=== PATIENT | female | born 1935 | race Caucasian/White ===

== ENCOUNTER 2017-02-21 11:55 | Observation (INO) | payer MEDICARE, OTHER ==
[2017-02-21 12:31] LABS: Urine Bilirubin Negative (NEGATIVE); Urine Blood Negative /ul (NEGATIVE); Urine Ketone Negative (NEGATIVE); Urine Nitrite Negative (NEGATIVE); Urine Protein Negative (NEGATIVE); Urine Urobilinogen Normal (NORMAL)
[2017-02-21 12:36] LABS: Hematocrit 35.7 % (37.0-47.0); Hemoglobin 11.7 gm/dL (12.5-16.0); Mean Corpuscular Hemoglobin 29.2 pg (27-31); Mean Corpuscular Hgb Conc 32.8 g/dl (32-36); Mean Platelet Volume 9.4 fl (6.0-9.5); Neutrophil # 5.5 K/mm3 (1.3-6.0); Neutrophil % 73.4 % (42-75.0); Platelet Count 192 K/mm3 (150-450); Red Blood Count 4.01 M/mm3 (4.2-5.4); Red Cell Distribution Width 13.9 % (11.5-14.0); White Blood Count 7.5 K/mm3 (4.0-10.5)
[2017-02-21 12:42] LABS: Cocaine Ur Negative (NEGATIVE); Urine Barbiturate Negative (NEGATIVE); Urine Benzodiazepines Negative (NEGATIVE); Urine Opiates Negative (NEGATIVE); Urine PCP Negative (NEGATIVE); Urine THC Negative (NEGATIVE)
[2017-02-21 12:45] LABS: Urine Appearance Slightly Cloudy; Urine Color Yellow
[2017-02-21 12:46] LABS: Urine Bacteria TRACE; Urine RBC None Seen /hpf (0-5); Urine WBC 0-5 /hpf (0-5)
[2017-02-21 12:58] LABS: ALT 30 U/L (19-67); AST 26 U/L (0-48); Alkaline Phosphatase * 88 U/L (50-170); Anion Gap 14.3 mmol/L (6.8-13.8); BUN/Creatinine Ratio 16.3 (9.0-21.6); Bilirubin, Total 0.3 mg/dL (0.0-1.1); Blood Urea Nitrogen 22 mg/dL (3-23); Ca. Corrected For Albumin 8.5 mg/dL (8.4-10.2); Calcium * 8.8 mg/dL (7.9-10.9); Carbon Dioxide 26.9 mmol/L (24-32.6); Chloride 99 mmol/L (97-106); Glucose * 183 mg/dL (70-110); Potassium 4.2 mmol/L (3.4-4.6); Salicylate Less than 2.8 mg/dL (2.8-20.0); Sodium 136 mmol/L (132-142); Total Protein 7.6 gm/dL (6.2-8.2)
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
[2017-02-21] MEDS ORDERED: FLU VACC QS2017-18(6MOS UP)/PF 60 MCG/0.5 ML SYRINGE IM ONE (22:11)
[2017-02-21] MEDS ORDERED: CYCLOBENZAPRINE HCL 10 MG TABLET PO PRN (23:38)
[2017-02-21] MEDS ORDERED: ALBUTEROL SULFATE 200 PUFF INHALER IH PRN (23:38)
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
[2017-02-21] MEDS ORDERED: oxyCODONE HCL/ACETAMINOPHEN 1 TAB TABLET ONE (23:53)
[2017-02-21] MEDS ORDERED: AMITRIPTYLINE HCL 25 MG TABLET ONE (23:53)
[2017-02-21] MEDS: AMITRIPTYLINE HCL 50 MG TABLET PO SCH (23:55)
[2017-02-21] MEDS: oxyCODONE HCL/ACETAMINOPHEN 1 TAB TABLET PO PRN (23:55)
[2017-02-22] MEDS ORDERED: ACETAMINOPHEN 500 MG TABLET PO PRN (00:03)
[2017-02-22] MEDS ORDERED: diphenhydrAMINE HCL 25 MG CAPSULE PO PRN (00:04)
[2017-02-22] MEDS ORDERED: ALBUTEROL SULFATE 2.5 MG/0.5 ML VIAL.NEB IH PRN (06:38)
[2017-02-22] MEDS: LEVOTHYROXINE SODIUM 50 MCG TABLET PO SCH (07:41)
[2017-02-22] MEDS: OMEGA-3 FATTY ACIDS 1 CAP CAPSULE PO SCH (08:46)
[2017-02-22] MEDS: LISINOPRIL 10 MG TABLET PO SCH (08:46)
[2017-02-22] MEDS: FLUTICASONE PROPIONATE 120 SPRAY INHALER NS SCH ×3 (08:47→20:33)
[2017-02-22] MEDS: BETA-CAROTENE(A) W-C , E/MIN 1 TAB TABLET PO SCH (08:47)
[2017-02-22] MEDS: FUROSEMIDE 20 MG TABLET PO SCH (08:47)
[2017-02-22] MEDS: ASPIRIN 81 MG TABLET.DR PO SCH (08:47)
[2017-02-22] MEDS: FAMOTIDINE 20 MG TABLET PO SCH ×2 (08:47→20:26)
[2017-02-22] MEDS: MULTIVITAMINS 1 CAP CAPSULE PO SCH (08:47)
[2017-02-22] MEDS ORDERED: ATORVASTATIN CALCIUM 40 MG TABLET PO SCH (09:00)
[2017-02-22] MEDS ORDERED: FLU VACC QS2017-18(6MOS UP)/PF 60 MCG/0.5 ML SYRINGE IM ONE (09:00)
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
[2017-02-22] MEDS ORDERED: ARIPiprazole 5 MG TABLET PO SCH (19:30)
[2017-02-22] MEDS: oxyCODONE HCL/ACETAMINOPHEN 1 TAB TABLET PO PRN (20:25)
[2017-02-22] MEDS: AMITRIPTYLINE HCL 50 MG TABLET PO SCH (20:26)
[2017-02-22] MEDS: ROSUVASTATIN CALCIUM 10 MG TABLET PO SCH (20:26)
[2017-02-22] MEDS: INSULIN GLARGINE,HUM.REC.ANLOG 100 UNITS/ML VIAL SC SCH (20:27)
--- NOTE | 2017-02-22 23:43 | PN ---
Subjective - Date and Time Seen Date: 02/22/17 Time: 16:42 Subjective Narrative: Shaina reports no concerns. Nursing reports continued paranoid delusions. Believes her neighbor is out to get her and she is scared to go home. No fever, chills, nausea, or vomiting. Objective - Vitals Vitals: Last Vital Signs Temp 36.8 C 02/22/17 21:00 Pulse 87 02/22/17 21:00 Resp 18 02/22/17 17:00 BP 99/57 02/22/17 21:00 Pulse Ox 90 02/22/17 17:00 - Exam Constitutional: Present: Alert, Oriented x3, Cooperative ENT Exam: Present: hearing grossly normal Respiratory: Present: lungs clear, normal breath sounds Cardiovascular/Chest: Present: regular rate, rhythm, no murmur Abdomen: Present: Normal bowel sounds, soft, nontender, nondistended Skin Exam: Present: normal color, warm/dry, no cyanosis Eye contact: Present: cooperative, good eye contact, normal speech Assessment/Plan Plan Narrative: Altered mental status with paranoid delusions. Consulted psychiatry. Will plan to get Brain MRI to evaluate for stroke. - Problems/Diagnosis (1) Altered mental status, unspecified Problem: Resolved Qualifiers: Altered mental status type: unspecified Qualified Code(s): R41.82 - Altered mental status, unspecified
[2017-02-23] MEDS: LEVOTHYROXINE SODIUM 50 MCG TABLET PO SCH (06:36)
[2017-02-23] MEDS: oxyCODONE HCL/ACETAMINOPHEN 1 TAB TABLET PO PRN ×2 (08:33→20:11)
[2017-02-23] MEDS: FAMOTIDINE 20 MG TABLET PO SCH ×2 (08:36→20:04)
[2017-02-23] MEDS: BETA-CAROTENE(A) W-C , E/MIN 1 TAB TABLET PO SCH (08:36)
[2017-02-23] MEDS: ARIPiprazole 10 MG TABLET PO SCH (08:36)
[2017-02-23] MEDS: FUROSEMIDE 20 MG TABLET PO SCH (08:36)
[2017-02-23] MEDS: OMEGA-3 FATTY ACIDS 1 CAP CAPSULE PO SCH (08:36)
[2017-02-23] MEDS: FLUTICASONE PROPIONATE 120 SPRAY INHALER NS SCH ×2 (08:36→20:03)
[2017-02-23] MEDS: MULTIVITAMINS 1 CAP CAPSULE PO SCH (08:36)
[2017-02-23] MEDS: LISINOPRIL 10 MG TABLET PO SCH (08:37)
[2017-02-23] MEDS: ASPIRIN 81 MG TABLET.DR PO SCH (08:44)
--- NOTE | 2017-02-23 14:24 | PN ---
Subjective - Date and Time Seen Date: 02/23/17 Time: 14:09 Subjective Narrative: Shaina seems to not have any problems with the Aripiprazole we started her on last night. I just read the results of the CT scan of the brain done at 7:33 AM today and read by Dr. 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 There is cortical and cerebellar atrophy; subcortical and periventricular white matter , mostly chronic microvascular ischemic changes of the brain.. There also are small peripheral encephalomalacic changes in the right cerebellar hemisphere in the inferior aspect. 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 4-A Scottish-cheese pattern of dementia characteristics as evidence by startlingly contradictory findings on the Miguel MMSE as shown by severely impaired Draw-A -Clock test results, spotty performances in memory, immediate and remote recall , calculation and concrete tests of abstract thinking, and episodes of rages . I discussed the above developments with Chacho Allen DO, her attending physician. Objective - Vitals Vitals: Last Vital Signs Temp 36.5 C 02/23/17 10:59 Pulse 82 02/23/17 13:46 Resp 18 02/23/17 13:46 BP 128/60 02/23/17 13:46 Pulse Ox 99 02/23/17 13:46
[2017-02-23] MEDS: CLOPIDOGREL BISULFATE 75 MG TABLET PO SCH (17:56)
[2017-02-23] MEDS: ROSUVASTATIN CALCIUM 10 MG TABLET PO SCH (20:03)
[2017-02-23] MEDS: AMITRIPTYLINE HCL 50 MG TABLET PO SCH (20:03)
[2017-02-23] MEDS: INSULIN GLARGINE,HUM.REC.ANLOG 100 UNITS/ML VIAL SC SCH (20:04)
--- NOTE | 2017-02-23 23:57 | PN ---
Subjective - Date and Time Seen Date: 02/23/17 Time: 16:50 Subjective Narrative: Have seen less paranoid delusions from Shaina today per nursing. MRI obtained shows old PICA stroke, this may be related but does not explain the recent change given that this is an old stroke. No fever, chills, n/v. Objective - Vitals Vitals: Last Vital Signs Temp 36.4 C L 02/23/17 19:00 Pulse 80 02/23/17 19:00 Resp 18 02/23/17 19:00 BP 141/42 02/23/17 19:00 Pulse Ox 98 02/23/17 19:00 - Exam Constitutional: Present: Alert, Oriented x3, Cooperative ENT Exam: Present: hearing grossly normal Respiratory: Present: lungs clear, normal breath sounds Cardiovascular/Chest: Present: regular rate, rhythm, no murmur Abdomen: Present: Normal bowel sounds, soft, nontender, nondistended Thoughts: Present: normal thought pattern, no apparent hallucination Assessment/Plan Plan Narrative: Behaviors improved some today. Brain MRI showed old PICA stroke. Will evaluate further with outpatient MRA and echo as she did not have a history of stroke. Psych believes symptoms may be mental health related to poor vision causing hallucinations. Started on Abilify. Will monitor overnight. - Problems/Diagnosis (1) Altered mental status, unspecified Problem: Resolved Qualifiers: Altered mental status type: unspecified Qualified Code(s): R41.82 - Altered mental status, unspecified (2) Ischemic stroke Problem: Chronic
[2017-02-24] MEDS: LEVOTHYROXINE SODIUM 50 MCG TABLET PO SCH (07:18)
[2017-02-24] MEDS: BETA-CAROTENE(A) W-C , E/MIN 1 TAB TABLET PO SCH (08:20)
[2017-02-24] MEDS: FAMOTIDINE 20 MG TABLET PO SCH (08:20)
[2017-02-24] MEDS: FLUTICASONE PROPIONATE 120 SPRAY INHALER NS SCH (08:20)
[2017-02-24] MEDS: FUROSEMIDE 20 MG TABLET PO SCH (08:20)
[2017-02-24] MEDS: MULTIVITAMINS 1 CAP CAPSULE PO SCH (08:20)
[2017-02-24] MEDS: ARIPiprazole 10 MG TABLET PO SCH (08:20)
[2017-02-24] MEDS: OMEGA-3 FATTY ACIDS 1 CAP CAPSULE PO SCH (08:20)
[2017-02-24] MEDS: LISINOPRIL 10 MG TABLET PO SCH (08:21)
[2017-02-24] MEDS: oxyCODONE HCL/ACETAMINOPHEN 1 TAB TABLET PO PRN (08:21)
[2017-02-24] MEDS: CLOPIDOGREL BISULFATE 75 MG TABLET PO SCH (08:21)
--- NOTE | 2017-02-24 11:02 | DS ---
(1) Delusion Problem: Resolved (2) Altered mental status, unspecified Problem: Resolved Qualifiers: Altered mental status type: unspecified Qualified Code(s): R41.82 - Altered mental status, unspecified (3) Ischemic stroke Problem: Chronic Description of Stay: Shaina is a 81 yo female admitted for altered mental status and paranoid delusions. Psychiatry was consulted. A brain MRI, labwork, and a borja for infectious etiology were performed. The only abnormality was evidence of an old stroke. Psych felt symptoms were related to vision change causing visual hallucinations. Recommended starting abilify. This did seem to help patient's delusions. No history of stroke, will therefore work up the chronic stroke for etiology as I am unsure when this occurred and if this is related to her symptoms. Procedures Performed: none Discharge Disposition: Home self care Disposition: Home self-care Condition: Good Discharge Activity: Activity as tolerated Discharge Diet: Consistent carbs Referrals: Chacho Allen DO [Primary Care Provider] - One Week Leandra Jacobs MD [Staff Physician] - (Hospital follow up next available) Problem Oriented Discharge Instructions to Patient/Family: Ischemic Stroke Treated Without Warfarin, [id number] Additional Patient Instructions (free text): Please make TCM appointment at discharge, if applicable. Thank you! Nilam @ [phone]. Follow up appointment with Dr. Allen on 03/03/17 at 10:00am Follow up appointment with Dr. Jacobs on 03/10/1710:30am [facility] Home Health- resume at discharge. Prescriptions (Any new or edited meds): ARIPiprazole [Abilify] 5 mg PO DAILY #30 tablet Clopidogrel Bisulfate [Plavix] 75 mg PO DAILY #30 tablet Complete Home Medications List: Complete Home Medication List: Aspirin [Aspirin Enteric Coated] 81 mg PO DAILY 08/07/13 Insulin Glargine,Hum.rec.anlog [Lantus] 20 unit SQ HS 08/22/13 Amitriptyline HCl [Elavil] 50 mg PO HS 02/14/14 Levothyroxine Sodium [Synthroid] 50 mcg PO DAILY 02/14/14 Albuterol Sulfate [Proair Hfa] 2 puff IH QID PRN 04/04/15 Atorvastatin Calcium [Lipitor] 20 mg PO DAILY 04/04/15 Fluticasone Propionate [Flonase] 1 spray NS BID 04/04/15 Furosemide [Lasix] 20 mg PO DAILY 04/04/15 Lisinopril [Zestril] 10 mg PO DAILY 04/04/15 Multivitamins [Multivitamin Charles] 1 cap PO DAILY 04/04/15 oxyCODONE HCL/ACETAMINOPHEN [Percocet 5 MG/325 MG] 1 - 2 tab PO BID PRN Ranitidine HCl [Zantac] 150 mg PO BID 01/22/16 Acetaminophen/Diphenhydramine [Tylenol Pm Ex-Strength Caplet] 1 each PO QID PRN 02/21/17 Cyclobenzaprine HCl [Flexeril] 10 mg PO TID PRN 02/21/17 [place]-3S/Dha/Epa/Fish Oil [Fish Oil 1,200 mg Softgel] 1 each PO DAILY 02/21/17 Vit C/E/Zn/Coppr/Lutein/Zeaxan [Preservision Areds 2 Softgel] 1 each PO BID 07/09 ARIPiprazole [Abilify] 5 mg PO DAILY #30 tablet 02/24/17 Clopidogrel Bisulfate [Plavix] 75 mg PO DAILY #30 tablet 02/24/17 Amb Orders for Discharge: MRA Head W/O Contrast * Time Frame: 1 Week, Facility: [facility], Location: Radiology MRA Neck W/WO * Time Frame: 1 Week, Facility: [facility], Location: Radiology US Echocardiogram Complete * Time Frame: 1 Week, Facility: [facility], Location: Radiology
[2017-02-24 13:39] VITALS: BP 144/66
== END 2017-02-24 13:56 | disposition home or self-care (01) ==
LOC: ER 11:55 → MS 21:16
PROVIDERS: ADMIT Nurse Practitioner; ATTEND Family Medicine
DX: R44.1 Visual hallucinations (principal); Z63.4 Disappearance and death of family member; F43.12 Post-traumatic stress disorder, chronic; Z86.73 Personal history of transient ischemic attack (TIA), and cerebral infarction without residual deficits; E10.9 Type 1 diabetes mellitus without complications; Z79.4 Long term (current) use of insulin; I10 Essential (primary) hypertension; I50.9 Heart failure, unspecified; J44.9 Chronic obstructive pulmonary disease, unspecified; Z87.891 Personal history of nicotine dependence; K21.9 Gastro-esophageal reflux disease without esophagitis; Z23 Encounter for immunization
CPT/HCPCS: 36415; 70553; 80053; 80307; 81001; 82947; 84443; 85025; 87086; 90686; 93005; 96372; 99285; G0008; G0378; G0480; G0481

== ENCOUNTER 2017-04-06 13:54 | Observation (INO) | payer MEDICARE, OTHER ==
[2017-04-06] MEDS ORDERED: NORMAL SALINE 1,000 ML IV ONE (14:04)
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
[2017-04-06 14:38] LABS: Hemoglobin 11.9 gm/dL (12.5-16.0); Mean Cell Volume 88.7 fl (78-100); Mean Corpuscular Hemoglobin 28.5 pg (27-31); Mean Corpuscular Hgb Conc 32.2 g/dl (32-36); Mean Platelet Volume 9.9 fl (6.0-9.5); Neutrophil # 7.9 K/mm3 (1.3-6.0); Platelet Count 264 K/mm3 (150-450); Red Blood Count 4.17 M/mm3 (4.2-5.4); Red Cell Distribution Width 14.3 % (11.5-14.0); White Blood Count 9.9 K/mm3 (4.0-10.5)
[2017-04-06] MEDS ORDERED: ONDANSETRON HCL/PF 2 MG/ML VIAL IV ONE (14:51)
[2017-04-06] MEDS ORDERED: ONDANSETRON HCL/PF 2 MG/ML VIAL ONE ×2 (14:51→14:53)
[2017-04-06 14:53] LABS: Troponin I Less than 0.017 ng/ml (0.00-0.10)
[2017-04-06 14:55] LABS: ALT 21 U/L (19-67); AST 25 U/L (0-48); Alkaline Phosphatase * 111 U/L (50-170); BNP * 778 pg/mL (5-550); BUN/Creatinine Ratio 14.1 (9.0-21.6); Bilirubin, Total 0.5 mg/dL (0.0-1.1); Blood Urea Nitrogen 22 mg/dL (3-23); CRP 1.9 mg/dL (0.0-0.9); Ca. Corrected For Albumin 9.3 mg/dL (8.4-10.2); Calcium * 9.6 mg/dL (7.9-10.9); Chloride 102 mmol/L (97-106); Glucose * 220 mg/dL (70-110); Potassium 3.4 mmol/L (3.4-4.6); Sodium 140 mmol/L (132-142); Total Protein 7.8 gm/dL (6.2-8.2)
[2017-04-06 15:04] LABS: Anion Gap 16.1 mmol/L (6.8-13.8); Carbon Dioxide 25.3 mmol/L (24-32.6)
[2017-04-06 15:35] LABS: Urine Bilirubin Negative (NEGATIVE); Urine Ketone Negative (NEGATIVE); Urine Nitrite Negative (NEGATIVE); Urine Protein >=300 mg/dL (NEGATIVE); Urine Specific Gravity 1.025 SP.GR. (1.005-1.010); Urine Urobilinogen Normal (NORMAL)
[2017-04-06 15:46] LABS: Urine Blood 5 /ul (NEGATIVE)
[2017-04-06 15:47] LABS: Urine Appearance Clear; Urine Bacteria 3+; Urine Color Dark Yellow
[2017-04-06] MEDS ORDERED: DICYCLOMINE HCL 10 MG/ML AMPUL IM ONE ×2 (16:12→16:22)
[2017-04-06] MEDS ORDERED: NITROFURANTOIN/NITROFURAN MAC 100 MG CAPSULE PO SCH (17:30)
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
[2017-04-06] MEDS ORDERED: ALBUTEROL SULFATE 200 PUFF INHALER IH PRN (20:28)
[2017-04-06] MEDS ORDERED: oxyCODONE HCL/ACETAMINOPHEN 1 TAB TABLET PO PRN (20:28)
[2017-04-06] MEDS ORDERED: FLUTICASONE PROPIONATE 120 SPRAY INHALER NS PRN (20:28)
[2017-04-06 20:39] LABS: Hemoglobin 11.8 gm/dL (12.5-16.0)
[2017-04-06] MEDS: INSULIN GLARGINE,HUM.REC.ANLOG 100 UNITS/ML VIAL SC SCH (21:11)
[2017-04-06] MEDS: CYCLOBENZAPRINE HCL 10 MG TABLET PO SCH (21:11)
[2017-04-06] MEDS: FAMOTIDINE 20 MG TABLET PO SCH (21:11)
[2017-04-06] MEDS: AMITRIPTYLINE HCL 50 MG TABLET PO SCH (21:16)
[2017-04-06] MEDS: BETA-CAROTENE(A) W-C , E/MIN 1 TAB TABLET PO SCH (21:16)
[2017-04-06] MEDS ORDERED: HYDROmorphone HCL 1 MG/ML DISP.SYRIN IV PRN (22:37)
[2017-04-06] MEDS ORDERED: ONDANSETRON HCL/PF 2 MG/ML VIAL IV PRN (22:38)
[2017-04-06] MEDS: NORMAL SALINE 1,000 ML IV PRN (23:24)
[2017-04-07 03:04] LABS: Hematocrit 36.4 % (37.0-47.0); Hemoglobin 11.6 gm/dL (12.5-16.0)
[2017-04-07 05:34] LABS: Hematocrit 36.1 % (37.0-47.0); Hemoglobin 11.5 gm/dL (12.5-16.0); Mean Cell Volume 88.5 fl (78-100); Mean Corpuscular Hemoglobin 28.2 pg (27-31); Mean Corpuscular Hgb Conc 31.9 g/dl (32-36); Mean Platelet Volume 9.4 fl (6.0-9.5); Neutrophil # 15.3 K/mm3 (1.3-6.0); Neutrophil % 87.5 % (42-75.0); Platelet Count 221 K/mm3 (150-450); Red Blood Count 4.08 M/mm3 (4.2-5.4); Red Cell Distribution Width 14.3 % (11.5-14.0); White Blood Count 17.4 K/mm3 (4.0-10.5)
[2017-04-07 05:43] LABS: Anion Gap 14.7 mmol/L (6.8-13.8); BUN/Creatinine Ratio 16.4 (9.0-21.6); Calcium * 8.5 mg/dL (7.9-10.9); Estimated Creat Clear 22.7; Potassium 3.7 mmol/L (3.4-4.6)
[2017-04-07] MEDS ORDERED: ALBUTEROL SULFATE 2.5 MG/0.5 ML VIAL.NEB IH PRN (06:22)
[2017-04-07] MEDS: LEVOTHYROXINE SODIUM 50 MCG TABLET PO SCH (07:55)
[2017-04-07] MEDS ORDERED: DIATRIZOATE MEGLUMINE, SODIUM 30 ML BTL PO ONE (08:00)
[2017-04-07] MEDS ORDERED: LISINOPRIL 10 MG TABLET PO SCH (09:00)
[2017-04-07] MEDS: LISINOPRIL 5 MG TABLET PO SCH (09:16)
[2017-04-07] MEDS: FAMOTIDINE 20 MG TABLET PO SCH ×2 (09:16→20:40)
[2017-04-07] MEDS: ROSUVASTATIN CALCIUM 10 MG TABLET PO SCH (09:17)
[2017-04-07] MEDS: OMEGA-3 FATTY ACIDS 1 CAP CAPSULE PO SCH (09:17)
[2017-04-07] MEDS: BETA-CAROTENE(A) W-C , E/MIN 1 TAB TABLET PO SCH ×2 (09:17→20:39)
[2017-04-07] MEDS: ARIPiprazole 10 MG TABLET PO SCH (09:17)
[2017-04-07] MEDS: SERTRALINE HCL 50 MG TABLET PO SCH (09:17)
[2017-04-07] MEDS: CYCLOBENZAPRINE HCL 10 MG TABLET PO SCH ×3 (09:17→16:17)
[2017-04-07] MEDS: MULTIVITAMINS 1 CAP CAPSULE PO SCH (09:17)
[2017-04-07] MEDS: NORMAL SALINE 1,000 ML IV PRN ×2 (10:15→22:13)
[2017-04-07] MEDS: oxyCODONE HCL/ACETAMINOPHEN 1 TAB TABLET PO PRN (12:51)
[2017-04-07 13:18] LABS: Hematocrit 34.6 % (37.0-47.0); Hemoglobin 10.9 gm/dL (12.5-16.0); Mean Cell Volume 89.2 fl (78-100); Mean Corpuscular Hemoglobin 28.1 pg (27-31); Mean Corpuscular Hgb Conc 31.5 g/dl (32-36); Mean Platelet Volume 9.6 fl (6.0-9.5); Neutrophil % 88.6 % (42-75.0); Platelet Count 204 K/mm3 (150-450); Red Blood Count 3.88 M/mm3 (4.2-5.4); Red Cell Distribution Width 14.4 % (11.5-14.0); White Blood Count 14.6 K/mm3 (4.0-10.5)
[2017-04-07] MEDS: CIPROFLOXACIN HCL 500 MG TABLET PO SCH ×2 (13:28→20:39)
[2017-04-07] MEDS: metroNIDAZOLE 500 MG TABLET PO SCH ×2 (13:28→20:40)
--- NOTE | 2017-04-07 17:45 | PN ---
Subjective - Date and Time Seen Date: 04/07/17 Time: 08:00 Subjective Narrative: Shaina reports abdominal pain. Bloody stools have improved. No fever, chills, nausea, or vomiting. Nursing reports she has had visual and auditory hallucinations. Home health nurse reports she has continued having these episodes at home despite Abilify that was started by psychiatry. Delusions usually involve children. Objective - Vitals Vitals: Last Vital Signs Temp 37 C 04/07/17 14:15 Pulse 103 H 04/07/17 14:15 Resp 20 04/07/17 14:15 BP 148/61 04/07/17 14:15 Pulse Ox 95 04/07/17 14:15 - Abnormal Lab Findings Abnormal Lab Findings: Abnormal Lab Results 04/06/17 04/07/17 04/07/17 Range/Units 20:33 02:30 05:34 WBC 17.4 H D (4.0-10.5) K/mm3 RBC 4.08 L (4.2-5.4) M/mm3 Hgb 11.8 L 11.6 L 11.5 L (12.5-16.0) gm/dL Hct 36.4 L 36.1 L (37.0-47.0) % MCHC 31.9 L (32-36) g/dl RDW 14.3 H (11.5-14.0) % MPV (6.0-9.5) fl Immature Gran % (Auto) 0.50 H (0.001-0.429) % Immature Gran # (Auto) 0.08 H (0.000-0.0310) K/mm3 Neutrophils % 87.5 H (42-75.0) % Lymphocytes % 5.4 L (20-51) % Neutrophils # 15.3 H (1.3-6.0) K/mm3 Lymphocytes # 0.9 L (1.5-3.5) k/mm3 Monocytes # 1.1 H (0.0-1.0) k/mm3 Anion Gap (6.8-13.8) mmol/L BUN (3-23) mg/dL Creatinine (0.4-1.4) mg/dL Est GFR (Non-Af Amer) (60-130) mL/min Random Glucose (70-110) mg/dL 04/07/17 04/07/17 Range/Units 05:34 13:15 WBC 14.6 H (4.0-10.5) K/mm3 RBC 3.88 L (4.2-5.4) M/mm3 Hgb 10.9 L (12.5-16.0) gm/dL Hct 34.6 L (37.0-47.0) % MCHC 31.5 L (32-36) g/dl RDW 14.4 H (11.5-14.0) % MPV 9.6 H (6.0-9.5) fl Immature Gran % (Auto) 0.60 H (0.001-0.429) % Immature Gran # (Auto) 0.09 H (0.000-0.0310) K/mm3 Neutrophils % 88.6 H (42-75.0) % Lymphocytes % 5.1 L (20-51) % Neutrophils # 13.0 H (1.3-6.0) K/mm3 Lymphocytes # 0.7 L (1.5-3.5) k/mm3 Monocytes # (0.0-1.0) k/mm3 Anion Gap 14.7 H (6.8-13.8) mmol/L BUN 26 H (3-23) mg/dL Creatinine 1.59 H (0.4-1.4) mg/dL Est GFR (Non-Af Amer) 33 L (60-130) mL/min Random Glucose 169 H (70-110) mg/dL - Exam Constitutional: Present: Alert, Oriented x3, Cooperative ENT Exam: Present: hearing grossly normal Cardiovascular/Chest: Present: regular rate, rhythm, no murmur Abdomen: Present: Normal bowel sounds, soft, tender - tender to palpation Skin Exam: Present: normal color, warm/dry, no cyanosis Assessment/Plan - Problems/Diagnosis (1) Colitis Problem: Suspected Narrative: CT of abdoment and pelvis performed today which showed colitis. Will change rocephin which was started for suspected UTI to cipro and flagyl. This will also cover potential UTI. Culture pending. Patient is medically stable and if not for delusions could be sent home and discharged with outpatient treatment. (2) Dementia Problem: Acute Qualifiers: Dementia type: unspecified type Dementia behavioral disturbance: with behavioral disturbance Qualified Code(s): F03.91 - Unspecified dementia with behavioral disturbance Narrative: Patient with development of dementia with behavioral delusions. Delusions are typically paranoid in nature and involve children. Previously evaluated by psychiatry and started on abilify. Her delusion may have improved a little when she changed apartments but she is still having hallucinations both auditory and visual that typically involve children playing, attacking, and even reportedly raping her. She lives alone and with her continued delusions I do not feel she is safe to be on her own. I feel she should be evaluated and treated by inpatient psych. Patient is voluntarily agreeing to this. I believe she is medically stable in regards to her colitis and potential UTI. She will be continued on Cipro 500mg BID x 2 weeks and Flagyl 500mg TID x 2 weeks. We have trended hemoglobin due to rectal bleed that occurred after she had an enema and hemoglobin has been trending down. Will keep her in observation at this time to continue trending hemoglobin as it has gone from 11.9 to 10.9 in 24 hours. Clinically she is not significantly bleeding on exam. If hemoglobin stabilizes and stops trending down she will be stable for transfer to inpatient psych. (3) Delusion Problem: Resolved
[2017-04-07 17:51] LABS: Acetaminophen * 0.8 mcg/mL (10.0-30.0); Salicylate Less than 2.8 mg/dL (2.8-20.0); TSH * 2.874 uIU/mL (0.358-3.74)
[2017-04-07] MEDS: AMITRIPTYLINE HCL 50 MG TABLET PO SCH (20:40)
[2017-04-07] MEDS: INSULIN GLARGINE,HUM.REC.ANLOG 100 UNITS/ML VIAL SC SCH (20:41)
[2017-04-07 21:12] LABS: Urine Bilirubin Negative (NEGATIVE); Urine Blood 50 /ul (NEGATIVE); Urine Ketone Negative (NEGATIVE); Urine Nitrite Negative (NEGATIVE); Urine Protein Negative (NEGATIVE); Urine Urobilinogen Normal (NORMAL); Urine pH 5.5 pH (5.0-7.0)
[2017-04-07 21:32] LABS: Urine Appearance Clear; Urine Bacteria TRACE; Urine Color Yellow; Urine RBC 0-5 /hpf (0-5); Urine WBC 25-50 /hpf (0-5)
[2017-04-08 01:21] LABS: Cocaine Ur Negative (NEGATIVE); Urine Barbiturate Negative (NEGATIVE); Urine Benzodiazepines Negative (NEGATIVE); Urine PCP Negative (NEGATIVE); Urine THC Negative (NEGATIVE)
[2017-04-08 01:22] LABS: Urine Opiates Positive (NEGATIVE)
[2017-04-08] MEDS: oxyCODONE HCL/ACETAMINOPHEN 1 TAB TABLET PO PRN (05:00)
[2017-04-08] MEDS: metroNIDAZOLE 500 MG TABLET PO SCH ×3 (05:00→20:58)
[2017-04-08] MEDS: LEVOTHYROXINE SODIUM 50 MCG TABLET PO SCH (06:40)
[2017-04-08] MEDS: CIPROFLOXACIN HCL 500 MG TABLET PO SCH ×2 (08:21→20:58)
[2017-04-08] MEDS: MULTIVITAMINS 1 CAP CAPSULE PO SCH (08:21)
[2017-04-08] MEDS: BETA-CAROTENE(A) W-C , E/MIN 1 TAB TABLET PO SCH ×2 (08:21→20:58)
[2017-04-08] MEDS: SERTRALINE HCL 50 MG TABLET PO SCH (08:21)
[2017-04-08] MEDS: NORMAL SALINE 1,000 ML IV PRN (08:21)
[2017-04-08] MEDS: CYCLOBENZAPRINE HCL 10 MG TABLET PO SCH ×3 (08:21→16:31)
[2017-04-08] MEDS: ARIPiprazole 10 MG TABLET PO SCH (08:21)
[2017-04-08] MEDS: ROSUVASTATIN CALCIUM 10 MG TABLET PO SCH (08:21)
[2017-04-08] MEDS: FAMOTIDINE 20 MG TABLET PO SCH ×2 (08:21→20:58)
[2017-04-08] MEDS: OMEGA-3 FATTY ACIDS 1 CAP CAPSULE PO SCH (08:21)
[2017-04-08] MEDS: LISINOPRIL 5 MG TABLET PO SCH (08:21)
[2017-04-08 08:31] LABS: Hemoglobin 10.5 gm/dL (12.5-16.0); Mean Cell Volume 89.2 fl (78-100); Mean Corpuscular Hemoglobin 28.4 pg (27-31); Mean Corpuscular Hgb Conc 31.8 g/dl (32-36); Mean Platelet Volume 9.4 fl (6.0-9.5); Neutrophil # 14.8 K/mm3 (1.3-6.0); Neutrophil % 86.4 % (42-75.0); Platelet Count 188 K/mm3 (150-450); Red Cell Distribution Width 14.6 % (11.5-14.0); White Blood Count 17.2 K/mm3 (4.0-10.5)
[2017-04-08 08:39] LABS: Albumin * 2.4 gm/dl (3.4-5.0); Anion Gap 13.4 mmol/L (6.8-13.8); BUN/Creatinine Ratio 10.4 (9.0-21.6); Bilirubin, Total 0.3 mg/dL (0.0-1.1); Ca. Corrected For Albumin 9.2 mg/dL (8.4-10.2); Calcium * 8.2 mg/dL (7.9-10.9); Carbon Dioxide 22.7 mmol/L (24-32.6); Potassium 3.1 mmol/L (3.4-4.6); Total Protein 5.7 gm/dL (6.2-8.2)
[2017-04-08] MEDS ORDERED: POTASSIUM CHLORIDE 20 MEQ TABLET.SA PO ONE (12:34)
[2017-04-08] MEDS: AMITRIPTYLINE HCL 50 MG TABLET PO SCH (20:59)
[2017-04-08] MEDS: INSULIN GLARGINE,HUM.REC.ANLOG 100 UNITS/ML VIAL SC SCH (20:59)
--- NOTE | 2017-04-08 22:56 | PN ---
Subjective - Date and Time Seen Date: 04/08/17 Time: 12:45 Subjective Narrative: Shaina continues to have delusions. Agrees to voluntarily be evaluated at inpatient psych. No fever, chills, nausea, or vomiting. No bloody stools. Objective - Vitals Vitals: Last Vital Signs Temp 36.4 C L 04/08/17 18:00 Pulse 96 04/08/17 18:00 Resp 18 04/08/17 18:00 BP 145/51 04/08/17 18:00 Pulse Ox 100 04/08/17 18:00 - Abnormal Lab Findings Abnormal Lab Findings: Abnormal Lab Results 04/08/17 04/08/17 04/08/17 Range/Units 01:03 08:18 08:18 WBC 17.2 H (4.0-10.5) K/mm3 RBC 3.70 L (4.2-5.4) M/mm3 Hgb 10.5 L (12.5-16.0) gm/dL Hct 33.0 L (37.0-47.0) % MCHC 31.8 L (32-36) g/dl RDW 14.6 H (11.5-14.0) % Immature Gran % (Auto) 0.60 H (0.001-0.429) % Immature Gran # (Auto) 0.10 H (0.000-0.0310) K/mm3 Neutrophils % 86.4 H (42-75.0) % Lymphocytes % 6.0 L (20-51) % Neutrophils # 14.8 H (1.3-6.0) K/mm3 Lymphocytes # 1.0 L (1.5-3.5) k/mm3 Plasma Sodium 143 H (130-142) mmol/L Potassium 3.1 L (3.4-4.6) mmol/L Chloride 109 H (97-106) mmol/L Carbon Dioxide 22.7 L (24-32.6) mmol/L Est GFR (Non-Af Amer) 53 L D (60-130) mL/min Random Glucose 140 H (70-110) mg/dL ALT 12 L (19-67) U/L Total Protein 5.7 L (6.2-8.2) gm/dL Albumin 2.4 L (3.4-5.0) gm/dl Urine Opiates Screen Positive H (NEGATIVE) - Exam Constitutional: Present: Alert, Oriented x3, Cooperative Respiratory: Present: lungs clear, normal breath sounds Cardiovascular/Chest: Present: regular rate, rhythm, no murmur Abdomen: Present: Normal bowel sounds, soft, nontender, nondistended Assessment/Plan Plan Narrative: Shaina is a 81 yo female with: 1) Dementia with behavioral delusions. Voluntarily agrees to go to inpatient psych. Due to her delusions she is not safe to be at home on her own. She has delusions of little children that involve attacking and raping her. Continue Abilify 15mg Daily. Once medically stable she may be discharged to inpatient psych. I believe she will be medically stable tomorrow if hemoglobin does not continue to significantly drop. 2) Rectal Bleed - Clincally stopped. Hemoglobin has continued to trend down but she has been on IVFs. This has now been discontinued. Expect hgb to stabilize as she is not clinically bleeding. 3) Collitis - Patient had abdominal pain, CT showed collitis. Started on cipro and flagyl x 14 days. 4) UTI - Treated with Cipro. - Problems/Diagnosis (1) Colitis Problem: Suspected (2) Dementia Problem: Acute Qualifiers: Dementia type: unspecified type Dementia behavioral disturbance: with behavioral disturbance Qualified Code(s): F03.91 - Unspecified dementia with behavioral disturbance (3) Delusion Problem: Resolved (4) Rectal bleeding Problem: Acute
[2017-04-09] MEDS: oxyCODONE HCL/ACETAMINOPHEN 1 TAB TABLET PO PRN ×2 (01:57→20:27)
[2017-04-09] MEDS: metroNIDAZOLE 500 MG TABLET PO SCH ×3 (05:09→20:18)
[2017-04-09 05:41] LABS: Hematocrit 28.2 % (37.0-47.0); Mean Cell Volume 87.6 fl (78-100); Mean Corpuscular Hgb Conc 31.9 g/dl (32-36); Mean Platelet Volume 9.9 fl (6.0-9.5); Neutrophil # 12.3 K/mm3 (1.3-6.0); Neutrophil % 85.7 % (42-75.0); Platelet Count 178 K/mm3 (150-450); Red Blood Count 3.22 M/mm3 (4.2-5.4); Red Cell Distribution Width 14.4 % (11.5-14.0); White Blood Count 14.3 K/mm3 (4.0-10.5)
[2017-04-09 05:59] LABS: Albumin * 2.1 gm/dl (3.4-5.0); Anion Gap 13.7 mmol/L (6.8-13.8); Bilirubin, Total 0.3 mg/dL (0.0-1.1); Ca. Corrected For Albumin 9.2 mg/dL (8.4-10.2); Carbon Dioxide 22.5 mmol/L (24-32.6); Potassium 3.2 mmol/L (3.4-4.6); Total Protein 5.1 gm/dL (6.2-8.2)
--- NOTE | 2017-04-09 06:14 | PN ---
Subjective - Date and Time Seen Date: 04/09/17 Time: 06:12 Subjective Narrative: Pt seen this am. Says abdominal pain has improved. No n/v diarrhea or bloody stools. Has no other concerns. Still has episodes of delusions. Awaiting inpatient psych. Placement. Objective - Vitals Vitals: Last Vital Signs Temp 36.6 C 04/09/17 02:47 Pulse 90 04/09/17 02:47 Resp 20 04/09/17 02:47 BP 151/50 04/09/17 02:47 Pulse Ox 96 04/09/17 02:47 - Abnormal Lab Findings Abnormal Lab Findings: Abnormal Lab Results 04/08/17 04/08/17 04/09/17 Range/Units 08:18 08:18 05:34 WBC 17.2 H 14.3 H (4.0-10.5) K/mm3 RBC 3.70 L 3.22 L (4.2-5.4) M/mm3 Hgb 10.5 L 9.0 L (12.5-16.0) gm/dL Hct 33.0 L 28.2 L (37.0-47.0) % MCHC 31.8 L 31.9 L (32-36) g/dl RDW 14.6 H 14.4 H (11.5-14.0) % MPV 9.9 H (6.0-9.5) fl Immature Gran % (Auto) 0.60 H 1.00 H (0.001-0.429) % Immature Gran # (Auto) 0.10 H 0.14 H (0.000-0.0310) K/mm3 Neutrophils % 86.4 H 85.7 H (42-75.0) % Lymphocytes % 6.0 L 6.4 L (20-51) % Neutrophils # 14.8 H 12.3 H (1.3-6.0) K/mm3 Lymphocytes # 1.0 L 0.9 L (1.5-3.5) k/mm3 Plasma Sodium 143 H (130-142) mmol/L Potassium 3.1 L (3.4-4.6) mmol/L Chloride 109 H (97-106) mmol/L Carbon Dioxide 22.7 L (24-32.6) mmol/L Est GFR (Non-Af Amer) 53 L D (60-130) mL/min Random Glucose 140 H (70-110) mg/dL ALT 12 L (19-67) U/L Total Protein 5.7 L (6.2-8.2) gm/dL Albumin 2.4 L (3.4-5.0) gm/dl 04/09/17 Range/Units 05:34 WBC (4.0-10.5) K/mm3 RBC (4.2-5.4) M/mm3 Hgb (12.5-16.0) gm/dL Hct (37.0-47.0) % MCHC (32-36) g/dl RDW (11.5-14.0) % MPV (6.0-9.5) fl Immature Gran % (Auto) (0.001-0.429) % Immature Gran # (Auto) (0.000-0.0310) K/mm3 Neutrophils % (42-75.0) % Lymphocytes % (20-51) % Neutrophils # (1.3-6.0) K/mm3 Lymphocytes # (1.5-3.5) k/mm3 Plasma Sodium (130-142) mmol/L Potassium 3.2 L (3.4-4.6) mmol/L Chloride 109 H (97-106) mmol/L Carbon Dioxide 22.5 L (24-32.6) mmol/L Est GFR (Non-Af Amer) (60-130) mL/min Random Glucose (70-110) mg/dL ALT 10 L (19-67) U/L Total Protein 5.1 L (6.2-8.2) gm/dL Albumin 2.1 L (3.4-5.0) gm/dl - Exam Constitutional: Present: Alert, Oriented x3, Cooperative, No distress ENT Exam: Present: normal ENT inspection Neck: Present: non-tender, full range of motion, supple Breasts: Present: Exam deferred Respiratory: Present: lungs clear, no accessory muscle use, No wheezing Cardiovascular/Chest: Present: normal peripheral pulses, regular rate, rhythm, no chest tenderness Abdomen: Present: Normal bowel sounds, soft, nontender /Rectal: Present: Exam deferred Extremity: Present: normal range of motion, non-tender, normal inspection Skin Exam: Present: warm/dry, no cyanosis Lymphatic: Present: no adenopathy Neurologic: Present: no motor/sensory deficits, alert, oriented x 3 Appearance: Present: impaired insight Eye contact: Present: cooperative, good eye contact, normal speech Thoughts: Present: no apparent hallucination Assessment/Plan - Problems/Diagnosis (1) Colitis Problem: Acute Narrative: Pt presented with Abdominal pain, n/v, diarrhea. ESR & CRP levels were elevated. She had concerning peritoneal signs involving lower abdominal tenderness, guarding and rigidity. CT showed collitis. Started on cipro and flagyl x 14 days. (2) Rectal bleeding Problem: Acute Narrative: Clincally stopped. Hemoglobin has continued to trend down but she has been on IVFs. Expect hgb to stabilize as she is not clinically bleeding. (3) UTI (urinary tract infection) Problem: Acute Qualifiers: Urinary tract infection type: acute cystitis Hematuria presence: with hematuria Qualified Code(s): N30.01 - Acute cystitis with hematuria Narrative: Covered with Cipro (4) Acute kidney injury Problem: Acute Narrative: Improved with IVF hydration. (5) Dementia Problem: Acute Narrative: Dementia with behavioral delusions. Voluntarily agrees to go to inpatient psych. Due to her delusions she is not safe to be at home on her own. She has delusions of little children that involve attacking and raping her. Continue Abilify 15mg Daily. Once medically stable she may be discharged to inpatient psych. (6) Diabetes Problem: Chronic Narrative: Stable- Accucheck ACHS, Continue insulin. (7) GERD (gastroesophageal reflux disease) Problem: Chronic (8) Hypertension Problem: Chronic (9) CHF (congestive heart failure) Problem: Chronic
[2017-04-09] MEDS ORDERED: POTASSIUM CHLORIDE 20 MEQ TABLET.SA PO ONE (06:35)
[2017-04-09] MEDS: LEVOTHYROXINE SODIUM 50 MCG TABLET PO SCH (06:50)
[2017-04-09] MEDS: ARIPiprazole 10 MG TABLET PO SCH (08:43)
[2017-04-09] MEDS: CIPROFLOXACIN HCL 500 MG TABLET PO SCH ×2 (08:43→20:16)
[2017-04-09] MEDS: LISINOPRIL 5 MG TABLET PO SCH (08:43)
[2017-04-09] MEDS: OMEGA-3 FATTY ACIDS 1 CAP CAPSULE PO SCH (08:44)
[2017-04-09] MEDS: SERTRALINE HCL 50 MG TABLET PO SCH (08:44)
[2017-04-09] MEDS: ROSUVASTATIN CALCIUM 10 MG TABLET PO SCH (08:44)
[2017-04-09] MEDS: FAMOTIDINE 20 MG TABLET PO SCH ×2 (08:44→20:18)
[2017-04-09] MEDS: BETA-CAROTENE(A) W-C , E/MIN 1 TAB TABLET PO SCH ×2 (08:44→20:17)
[2017-04-09] MEDS: MULTIVITAMINS 1 CAP CAPSULE PO SCH (08:44)
[2017-04-09] MEDS: CYCLOBENZAPRINE HCL 10 MG TABLET PO SCH ×3 (08:44→18:04)
[2017-04-09 19:35] VITALS: BP 143/46
[2017-04-09] MEDS: AMITRIPTYLINE HCL 50 MG TABLET PO SCH (20:17)
[2017-04-09] MEDS: INSULIN GLARGINE,HUM.REC.ANLOG 100 UNITS/ML VIAL SC SCH (20:19)
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
== END 2017-04-09 21:30 | disposition short-term general hospital (02) ==
LOC: ER 13:54 → MS 17:12
PROVIDERS: ADMIT Family Medicine; ATTEND Family Medicine
DX: K52.9 Noninfective gastroenteritis and colitis, unspecified (principal); K59.00 Constipation, unspecified; K62.5 Hemorrhage of anus and rectum; N39.0 Urinary tract infection, site not specified; B96.20 Unspecified Escherichia coli [E. coli] as the cause of diseases classified elsewhere; R44.1 Visual hallucinations; N17.9 Acute kidney failure, unspecified; E86.0 Dehydration; E11.9 Type 2 diabetes mellitus without complications; I10 Essential (primary) hypertension; E03.9 Hypothyroidism, unspecified; E78.5 Hyperlipidemia, unspecified; I50.9 Heart failure, unspecified; J44.9 Chronic obstructive pulmonary disease, unspecified; K21.9 Gastro-esophageal reflux disease without esophagitis
CPT/HCPCS: 36415; 70450; 71010; 74020; 74177; 80048; 80053; 80307; 81001; 83605; 83880; 84443; 84484; 85014; 85018; 85025; 85652; 86140; 87040; 87045; 87046; 87077; 87086; 87177; 87186; 87209; 87493; 93005; 96361; 96365; 96372; 96374; 96375; 99285; G0378; G0480; G0481; J2405

== ENCOUNTER 2017-04-16 10:52 | Emergency (ER) | payer MEDICARE, OTHER ==
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
[2017-04-16 11:33] LABS: Hematocrit 32.9 % (37.0-47.0); Hemoglobin 10.5 gm/dL (12.5-16.0); Mean Cell Volume 87.3 fl (78-100); Mean Corpuscular Hemoglobin 27.9 pg (27-31); Mean Corpuscular Hgb Conc 31.9 g/dl (32-36); Mean Platelet Volume 8.8 fl (6.0-9.5); Neutrophil # 8.1 K/mm3 (1.3-6.0); Platelet Count 291 K/mm3 (150-450); Red Blood Count 3.77 M/mm3 (4.2-5.4); Red Cell Distribution Width 14.9 % (11.5-14.0); White Blood Count 10.4 K/mm3 (4.0-10.5)
[2017-04-16 11:59] LABS: ALT 24 U/L (19-67); AST 24 U/L (0-48); Alkaline Phosphatase * 75 U/L (50-170); Anion Gap 13.5 mmol/L (6.8-13.8); BNP * 206 pg/mL (5-550); BUN/Creatinine Ratio 10.2 (9.0-21.6); Bilirubin, Total 0.3 mg/dL (0.0-1.1); Blood Urea Nitrogen 10 mg/dL (3-23); Calcium * 8.5 mg/dL (7.9-10.9); Carbon Dioxide 27.2 mmol/L (24-32.6); Chloride 102 mmol/L (97-106); Glucose * 211 mg/dL (70-110); Potassium 3.7 mmol/L (3.4-4.6); Sodium 139 mmol/L (132-142); Total Protein 6.5 gm/dL (6.2-8.2); Troponin I Less than 0.017 ng/ml (0.00-0.10)
[2017-04-16 13:13] VITALS: BP 119/56
== END 2017-04-16 13:12 | disposition home or self-care (01) ==
LOC: ER 10:52
DX: R22.43 Localized swelling, mass and lump, lower limb, bilateral (principal); Z87.891 Personal history of nicotine dependence; Z87.440 Personal history of urinary (tract) infections; E03.9 Hypothyroidism, unspecified; E10.9 Type 1 diabetes mellitus without complications; Z79.4 Long term (current) use of insulin; E78.5 Hyperlipidemia, unspecified; I10 Essential (primary) hypertension; I50.9 Heart failure, unspecified

== ENCOUNTER 2017-04-21 10:36 | Emergency (ER) | payer MEDICARE, OTHER ==
[2017-04-21] MEDS ORDERED: ACETAMINOPHEN 325 MG TABLET PO ONE (12:26)
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
[2017-04-21] MEDS ORDERED: ACETAMINOPHEN 325 MG TABLET ONE (12:41)
[2017-04-21 14:09] VITALS: BP 132/80
== END 2017-04-21 14:14 | disposition home or self-care (01) ==
LOC: ER 10:36
DX: M16.12 Unilateral primary osteoarthritis, left hip (principal); Z87.440 Personal history of urinary (tract) infections

== ENCOUNTER 2017-05-23 18:28 | Observation (INO) | payer MEDICARE, MEDICAID ==
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
[2017-05-23 19:04] LABS: Hematocrit 31.6 % (37.0-47.0); Mean Cell Volume 82.7 fl (78-100); Mean Corpuscular Hemoglobin 26.2 pg (27-31); Mean Corpuscular Hgb Conc 31.6 g/dl (32-36); Mean Platelet Volume 9.2 fl (6.0-9.5); Neutrophil # 7.6 K/mm3 (1.3-6.0); Neutrophil % 77.5 % (42-75.0); Platelet Count 397 K/mm3 (150-450); Red Blood Count 3.82 M/mm3 (4.2-5.4); Red Cell Distribution Width 14.5 % (11.5-14.0); White Blood Count 9.8 K/mm3 (4.0-10.5)
[2017-05-23 19:11] LABS: Urine Bilirubin Negative (NEGATIVE); Urine Blood 25 /ul (NEGATIVE); Urine Ketone Negative (NEGATIVE); Urine Nitrite Negative (NEGATIVE); Urine Protein Negative (NEGATIVE); Urine Specific Gravity 1.025 SP.GR. (1.005-1.010); Urine Urobilinogen Normal (NORMAL); Urine pH 5.5 pH (5.0-7.0)
[2017-05-23 19:12] LABS: Urine Appearance Slightly Cloudy; Urine Bacteria 3+; Urine Color Yellow; Urine RBC 0-5 /hpf (0-5)
[2017-05-23 19:29] LABS: Cocaine Ur Negative (NEGATIVE); Urine Barbiturate Negative (NEGATIVE); Urine Benzodiazepines Negative (NEGATIVE); Urine Opiates Negative (NEGATIVE); Urine PCP Negative (NEGATIVE); Urine THC Negative (NEGATIVE)
[2017-05-23 19:29] LABS: ALT 21 U/L (19-67); AST 16 U/L (0-48); Albumin * 2.5 gm/dl (3.4-5.0); Alkaline Phosphatase * 157 U/L (50-170); Anion Gap 13.3 mmol/L (6.8-13.8); BNP * 2027 pg/mL (5-550); BUN/Creatinine Ratio 20.2 (9.0-21.6); Bilirubin, Total 0.4 mg/dL (0.0-1.1); Blood Urea Nitrogen 20 mg/dL (3-23); CK Total * 36 U/L (0-259); Calcium * 9.1 mg/dL (7.9-10.9); Carbon Dioxide 26.6 mmol/L (24-32.6); Chloride 103 mmol/L (97-106); Glucose * 142 mg/dL (70-110); Potassium 3.9 mmol/L (3.4-4.6); Salicylate Less than 2.8 mg/dL (2.8-20.0); Sodium 139 mmol/L (132-142); Total Protein 7.5 gm/dL (6.2-8.2); Troponin I Less than 0.017 ng/ml (0.00-0.10)
[2017-05-23] MEDS ORDERED: traMADol HCL 50 MG TABLET PO ONE (20:51)
[2017-05-23] MEDS ORDERED: traMADol HCL 50 MG TABLET ONE (21:02)
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
[2017-05-23] MEDS: INSULIN GLARGINE,HUM.REC.ANLOG 100 UNITS/ML VIAL SC SCH (22:34)
[2017-05-23] MEDS: MELATONIN 3,000 MCG TABLET PO SCH (22:34)
[2017-05-23] MEDS: QUEtiapine FUMARATE 100 MG TABLET PO SCH (22:34)
[2017-05-23] MEDS: FAMOTIDINE 20 MG TABLET PO SCH (22:38)
[2017-05-24] MEDS: traMADol HCL 50 MG TABLET PO PRN ×3 (04:41→17:03)
[2017-05-24 05:46] LABS: Anion Gap 12.9 mmol/L (6.8-13.8); BUN/Creatinine Ratio 23.2 (9.0-21.6); Carbon Dioxide 25.9 mmol/L (24-32.6); Estimated Creat Clear 43.3; Potassium 3.8 mmol/L (3.4-4.6)
[2017-05-24 06:03] LABS: Hematocrit 28.7 % (37.0-47.0); Hemoglobin 9.3 gm/dL (12.5-16.0); Mean Cell Volume 82.5 fl (78-100); Mean Corpuscular Hemoglobin 26.7 pg (27-31); Mean Corpuscular Hgb Conc 32.4 g/dl (32-36); Mean Platelet Volume 9.4 fl (6.0-9.5); Neutrophil # 6.3 K/mm3 (1.3-6.0); Neutrophil % 75.7 % (42-75.0); Platelet Count 368 K/mm3 (150-450); Red Blood Count 3.48 M/mm3 (4.2-5.4); Red Cell Distribution Width 14.6 % (11.5-14.0); White Blood Count 8.3 K/mm3 (4.0-10.5)
[2017-05-24] MEDS: LEVOTHYROXINE SODIUM 50 MCG TABLET PO SCH (06:38)
[2017-05-24] MEDS: SERTRALINE HCL 50 MG TABLET PO SCH (08:42)
[2017-05-24] MEDS: OMEGA-3 FATTY ACIDS 1 CAP CAPSULE PO SCH (08:42)
[2017-05-24] MEDS: FAMOTIDINE 20 MG TABLET PO SCH ×2 (08:42→21:39)
[2017-05-24] MEDS ORDERED: ATORVASTATIN CALCIUM 40 MG TABLET PO SCH (09:00)
[2017-05-24] MEDS ORDERED: LISINOPRIL 10 MG TABLET PO SCH (09:00)
[2017-05-24] MEDS ORDERED: METHYLPREDNISOLONE SOD SUCC 60 MG in WATER FOR INJ.,BACTERIOSTATIC 0 ML IV ONE (12:39)
[2017-05-24 13:58] LABS: Uric Acid 4.9 mg/dL (2.6-7.2)
[2017-05-24 13:59] LABS: CRP 29.1 mg/dL (0.0-0.9)
[2017-05-24] MEDS ORDERED: ROSUVASTATIN CALCIUM 10 MG TABLET PO SCH (21:00)
[2017-05-24] MEDS: MELATONIN 3,000 MCG TABLET PO SCH (21:39)
[2017-05-24] MEDS: QUEtiapine FUMARATE 100 MG TABLET PO SCH (21:40)
[2017-05-24] MEDS: INSULIN GLARGINE,HUM.REC.ANLOG 100 UNITS/ML VIAL SC SCH (21:42)
[2017-05-25] MEDS: LEVOTHYROXINE SODIUM 50 MCG TABLET PO SCH (07:03)
[2017-05-25 07:35] VITALS: BP 124/74
--- NOTE | 2017-05-25 07:40 | PN ---
Subjective - Date and Time Seen Date: 05/24/17 Time: 12:45 Subjective Narrative: Shaina reports severe bilateral shoulder pain (R>L) and bilateral hip pain. She is unable to get out of bed due to pain. Xrays reviewed and negative for fracture. Denies urinary symptoms, fever, chills, n/v. Objective - Vitals Vitals: Last Vital Signs Selected Entries 05/24/17 11:26 Temperature 36.8 C Pulse Rate 102 H Respiratory 20 Rate Blood Pressure 138/66 O2 Sat by Pulse 98 Oximetry Oxygen Delivery Room Air Method - Abnormal Lab Findings Abnormal Lab Findings: Abnormal Lab Results 05/24/17 05/24/17 Range/Units 05:00 13:33 ESR 117 H (0-15) mm/hr C-Reactive Prot, Quant 29.1 H (0.0-0.9) mg/dL - Exam Constitutional: Present: Alert, Oriented x3, Cooperative ENT Exam: Present: hearing grossly normal Respiratory: Present: lungs clear, normal breath sounds Cardiovascular/Chest: Present: regular rate, rhythm, no murmur Abdomen: Present: Normal bowel sounds, soft, nontender Extremity: Present: other - Disproportionate pain to palpation of bilateral shoulders Skin Exam: Present: normal color, warm/dry, no cyanosis Assessment/Plan - Problems/Diagnosis (1) PMR (polymyalgia rheumatica) Problem: Acute Narrative: Suspect PMR severe enough to prevent her from ambulating or caring for herself. Will check ESR/CRP and uric acid. Will start IV solumedrol today and prednisone tomorrow. Unable to discharge to home as she is unable to care for herself in her current state.
[2017-05-25] MEDS ORDERED: predniSONE 20 MG TABLET PO SCH (09:00)
[2017-05-25] MEDS ORDERED: LISINOPRIL 5 MG TABLET PO SCH (09:00)
[2017-05-25] MEDS: SERTRALINE HCL 50 MG TABLET PO SCH (10:07)
[2017-05-25] MEDS: FAMOTIDINE 20 MG TABLET PO SCH (10:08)
[2017-05-25] MEDS: OMEGA-3 FATTY ACIDS 1 CAP CAPSULE PO SCH (10:08)
--- NOTE | 2017-05-25 13:08 | DS ---
(1) PMR (polymyalgia rheumatica) Problem: Acute Description of Stay: Shaina is an 82 yo female admitted for severe shoulder and hip pain. She was initially unable to walk due to severity of pain. Suspected symptoms from polymyalgia rheumatica and started on IV steroids. She significantly improved and transitioned to oral prednisone and discharged to home with a prednisone taper over a couple months. Procedures Performed: none Discharge Disposition: Home self care Disposition: Home self-care Condition: Fair Discharge Activity: Activity as tolerated Discharge Diet: Consistent carbs Referrals: Chacho Allen DO [Primary Care Provider] - Problem Oriented Discharge Instructions to Patient/Family: Polymyalgia Rheumatica Additional Patient Instructions (free text): [facility] ongoing, please call and fax discharge information. Add Home PT. Follow up with Dr. Allen 06/08 at 10:00. Prescriptions (Any new or edited meds): Insulin Glargine,Hum.rec.anlog [Lantus] 30 units SC HS #1 vial predniSONE [Prednisone] 4 tab PO DAILY #140 tab traMADol HCL [Ultram] 50 mg PO Q6H PRN #90 tablet PRN Reason: Pain Complete Home Medications List: Complete Home Medication List: Insulin Glargine,Hum.rec.anlog [Lantus] 25 unit SQ HS 08/22/13 Levothyroxine Sodium [Synthroid] 50 mcg PO DAILY 02/14/14 Lisinopril [Zestril] 5 mg PO DAILY 04/04/15 [place]-3S/Dha/Epa/Fish Oil [Fish Oil 1,200 mg Softgel] 2 each PO DAILY 02/21/17 Sertraline HCl [Zoloft] 50 mg PO DAILY 04/07/17 Melatonin 3 mg PO HS 04/16/17 QUEtiapine FUMARATE [Seroquel] 100 mg PO HS 04/16/17 Atorvastatin Calcium 20 mg PO DAILY 05/16/17 Ranitidine HCl [Heartburn Relief] 150 mg PO BID 05/16/17 Insulin Glargine,Hum.rec.anlog [Lantus] 30 units SC HS #1 vial 05/25/17 predniSONE [Prednisone] 4 tab PO DAILY #140 tab 05/25/17 traMADol HCL [Ultram] 50 mg PO Q6H PRN #90 tablet 05/25/17
== END 2017-05-25 17:39 | disposition home health service (06) ==
LOC: ER 18:28 → MS 20:55
PROVIDERS: ADMIT Nurse Practitioner; ATTEND Family Medicine
DX: M35.3 Polymyalgia rheumatica (principal); N30.00 Acute cystitis without hematuria; I50.9 Heart failure, unspecified; E11.9 Type 2 diabetes mellitus without complications; Z79.4 Long term (current) use of insulin; I10 Essential (primary) hypertension; E78.5 Hyperlipidemia, unspecified; E03.9 Hypothyroidism, unspecified; F03.90 Unspecified dementia, unspecified severity, without behavioral disturbance, psychotic disturbance, mood disturbance, and anxiety; Z68.28 Body mass index [BMI] 28.0-28.9, adult

== ENCOUNTER 2017-06-11 09:15 | Emergency (ER) | payer MEDICARE, MEDICAID ==
[2017-06-11] MEDS ORDERED: predniSONE 20 MG TABLET PO ONE (09:44)
[2017-06-11] MEDS ORDERED: ALBUTEROL SULFATE/IPRATROPIUM 3 ML NEBU IH ONE ×2 (09:45→09:54)
[2017-06-11] MEDS ORDERED: predniSONE 20 MG TABLET ONE (09:54)
[2017-06-11 09:55] LABS: Hemoglobin 9.5 gm/dL (12.5-16.0); Mean Cell Volume 81.5 fl (78-100); Mean Corpuscular Hemoglobin 25.8 pg (27-31); Mean Corpuscular Hgb Conc 31.7 g/dl (32-36); Mean Platelet Volume 9.3 fl (6.0-9.5); Neutrophil # 13.3 K/mm3 (1.3-6.0); Neutrophil % 91.7 % (42-75.0); Platelet Count 252 K/mm3 (150-450); Red Blood Count 3.68 M/mm3 (4.2-5.4); Red Cell Distribution Width 15.5 % (11.5-14.0); White Blood Count 14.5 K/mm3 (4.0-10.5)
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
[2017-06-11 10:15] LABS: ALT 25 U/L (19-67); AST 18 U/L (0-48); Albumin * 2.7 gm/dl (3.4-5.0); Alkaline Phosphatase * 71 U/L (50-170); Anion Gap 11.5 mmol/L (6.8-13.8); BUN/Creatinine Ratio 28.7 (9.0-21.6); Bilirubin, Total 0.4 mg/dL (0.0-1.1); Blood Urea Nitrogen 29 mg/dL (3-23); Ca. Corrected For Albumin 9.8 mg/dL (8.4-10.2); Calcium * 9.1 mg/dL (7.9-10.9); Carbon Dioxide 27.3 mmol/L (24-32.6); Chloride 102 mmol/L (97-106); Glucose * 151 mg/dL (70-110); Magnesium 1.6 mg/dL (1.2-2.8); Potassium 3.8 mmol/L (3.4-4.6); Sodium 137 mmol/L (132-142); Total Protein 6.6 gm/dL (6.2-8.2); Troponin I Less than 0.017 ng/ml (0.00-0.10)
[2017-06-11 12:33] VITALS: BP 156/48
== END 2017-06-11 11:10 | disposition home or self-care (01) ==
LOC: ER 09:15
DX: I50.9 Heart failure, unspecified (principal); Z87.440 Personal history of urinary (tract) infections; Z87.891 Personal history of nicotine dependence

== ENCOUNTER 2017-06-14 10:48 | Observation (INO) | payer MEDICARE, MEDICAID ==
[2017-06-14] MEDS ORDERED: MECLIZINE HCL 25 MG TABLET PO ONE (11:25)
[2017-06-14] MEDS ORDERED: MECLIZINE HCL 25 MG TABLET ONE (11:44)
[2017-06-14 11:52] LABS: Hematocrit 35.5 % (37.0-47.0); Hemoglobin 11.5 gm/dL (12.5-16.0); Mean Cell Volume 79.4 fl (78-100); Mean Corpuscular Hemoglobin 25.7 pg (27-31); Mean Corpuscular Hgb Conc 32.4 g/dl (32-36); Mean Platelet Volume 9.4 fl (6.0-9.5); Neutrophil # 12.9 K/mm3 (1.3-6.0); Neutrophil % 75.5 % (42-75.0); Platelet Count 264 K/mm3 (150-450); Red Blood Count 4.47 M/mm3 (4.2-5.4); Red Cell Distribution Width 15.7 % (11.5-14.0)
[2017-06-14 12:00] LABS: Carboxyhemoglobin % 1.1 % (0.5-1.5); Methemoglobin % 0.4 % (0.41-1.15)
[2017-06-14 12:14] LABS: ALT 28 U/L (19-67); AST 13 U/L (0-48); Albumin * 3.1 gm/dl (3.4-5.0); Alkaline Phosphatase * 76 U/L (50-170); Anion Gap 12.6 mmol/L (6.8-13.8); BNP * 228 pg/mL (5-550); BUN/Creatinine Ratio 32.5 (9.0-21.6); Bilirubin, Total 0.6 mg/dL (0.0-1.1); Blood Urea Nitrogen 50 mg/dL (3-23); Ca. Corrected For Albumin 10.1 mg/dL (8.4-10.2); Calcium * 9.7 mg/dL (7.9-10.9); Carbon Dioxide 28.9 mmol/L (24-32.6); Chloride 100 mmol/L (97-106); Glucose * 104 mg/dL (70-110); Potassium 3.5 mmol/L (3.4-4.6); Sodium 138 mmol/L (132-142); Troponin I Less than 0.017 ng/ml (0.00-0.10)
[2017-06-14] MEDS: NORMAL SALINE 1,000 ML IV PRN ×2 (12:34→20:39)
[2017-06-14 12:54] LABS: Urine Bilirubin Negative (NEGATIVE); Urine Ketone Negative (NEGATIVE); Urine Nitrite Negative (NEGATIVE); Urine Protein Negative (NEGATIVE); Urine Urobilinogen Normal (NORMAL)
[2017-06-14 12:55] LABS: Urine Appearance Slightly Cloudy; Urine Blood 10 /ul (NEGATIVE); Urine Color Yellow
[2017-06-14 12:56] LABS: Urine Bacteria 3+; Urine RBC 0-5 /hpf (0-5)
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
[2017-06-14] MEDS ORDERED: cefTRIAXone SODIUM 1,000 MG in DEXTROSE 5 % IN WATER 50 ML IV ONE ×2 (13:30)
[2017-06-14] MEDS: FAMOTIDINE 20 MG TABLET PO SCH (20:31)
[2017-06-14] MEDS: LISINOPRIL 5 MG TABLET PO SCH (20:32)
[2017-06-14] MEDS ORDERED: INSULIN GLARGINE,HUM.REC.ANLOG 100 UNITS/ML VIAL SC SCH (21:00)
[2017-06-14] MEDS ORDERED: MELATONIN 3,000 MCG TABLET PO SCH (21:00)
[2017-06-14] MEDS ORDERED: QUEtiapine FUMARATE 100 MG TABLET PO SCH (21:00)
[2017-06-15] MEDS: NORMAL SALINE 1,000 ML IV PRN (05:10)
[2017-06-15 06:11] LABS: Albumin * 2.4 gm/dl (3.4-5.0); Anion Gap 13.4 mmol/L (6.8-13.8); BUN/Creatinine Ratio 35.5 (9.0-21.6); Bilirubin, Total 0.4 mg/dL (0.0-1.1); Ca. Corrected For Albumin 9.2 mg/dL (8.4-10.2); Calcium * 8.2 mg/dL (7.9-10.9); Carbon Dioxide 23.2 mmol/L (24-32.6); Potassium 3.6 mmol/L (3.4-4.6); Total Protein 5.6 gm/dL (6.2-8.2)
[2017-06-15] MEDS ORDERED: LEVOTHYROXINE SODIUM 50 MCG TABLET PO SCH (07:00)
[2017-06-15] MEDS: LISINOPRIL 5 MG TABLET PO SCH (08:01)
[2017-06-15] MEDS: FAMOTIDINE 20 MG TABLET PO SCH (08:01)
[2017-06-15] MEDS ORDERED: ACETAMINOPHEN 325 MG TABLET PO PRN (08:09)
[2017-06-15] MEDS ORDERED: ROSUVASTATIN CALCIUM 10 MG TABLET PO SCH (09:00)
[2017-06-15] MEDS ORDERED: SERTRALINE HCL 50 MG TABLET PO SCH (09:00)
[2017-06-15] MEDS ORDERED: predniSONE 20 MG TABLET PO SCH (09:00)
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
--- NOTE | 2017-06-15 16:50 | DS ---
(1) Acute kidney injury Problem: Resolved (2) Dehydration Problem: Resolved Description of Stay: Shaina is an 82 yo female that was admitted with acute renal failure secondary to dehydration. She had an elevated creatinine of 1.5 from a baseline of 1.0. She was treated with IVFs and acute renal injury resolved. She was then discharged to home and was educated to keep hydrated. Procedures Performed: none Discharge Disposition: Home self care Disposition: Home self-care Condition: Stable Discharge Activity: Activity as tolerated Discharge Diet: Consistent carbs Referrals: Chacho Allen DO [Staff Physician] - One Week Problem Oriented Discharge Instructions to Patient/Family: Dehydration, Adult, [id number] Additional Patient Instructions (free text): Please call Nilam @ [phone] upon discharge. Possible CCM program. Resume services with [facility] . Please call report and fax orders. [facility] will call with appointment date and time. Complete Home Medications List: Complete Home Medication List: Levothyroxine Sodium [Synthroid] 50 mcg PO DAILY 02/14/14 Lisinopril [Zestril] 5 mg PO BID 04/04/15 [place]-3S/Dha/Epa/Fish Oil [Fish Oil 1,200 mg Softgel] 1 each PO DAILY 02/21/17 Sertraline HCl [Zoloft] 50 mg PO DAILY 04/07/17 Melatonin 3 mg PO HS 04/16/17 QUEtiapine FUMARATE [Seroquel] 100 mg PO HS 04/16/17 Atorvastatin Calcium 20 mg PO DAILY 05/16/17 Ranitidine HCl [Heartburn Relief] 150 mg PO BID 05/16/17 Insulin Glargine,Hum.rec.anlog [Lantus] 30 units SC HS #1 vial 05/25/17 Vit A/Vit C/Vit E/Zinc/Copper [Preservision Areds Softgel] 1 each PO BID predniSONE [Prednisone] 60 mg PO DAILY tablet 06/15/17
[2017-06-15 20:06] VITALS: BP 167/60
== END 2017-06-15 20:11 | disposition home or self-care (01) ==
LOC: ER 10:48 → MS 13:06
PROVIDERS: ADMIT Family Medicine; ATTEND Family Medicine
DX: N17.9 Acute kidney failure, unspecified (principal); E86.0 Dehydration; M19.90 Unspecified osteoarthritis, unspecified site; E10.9 Type 1 diabetes mellitus without complications; Z79.4 Long term (current) use of insulin; K21.9 Gastro-esophageal reflux disease without esophagitis; E03.9 Hypothyroidism, unspecified; M35.3 Polymyalgia rheumatica; J44.9 Chronic obstructive pulmonary disease, unspecified; I50.9 Heart failure, unspecified; Z86.73 Personal history of transient ischemic attack (TIA), and cerebral infarction without residual deficits; I10 Essential (primary) hypertension; E78.5 Hyperlipidemia, unspecified; Z68.26 Body mass index [BMI] 26.0-26.9, adult
CPT/HCPCS: 36415; 71046; 80053; 81001; 82375; 83605; 83880; 84484; 85025; 87040; 87086; 93005; 96361; 96365; 97116; 97161; 99285; G0378; G8978; G8979; G8980

== ENCOUNTER 2017-08-12 15:39 | Observation (INO) ==
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
[2017-08-12 16:43] LABS: Hematocrit 36.1 % (37.0-47.0); Mean Cell Volume 86.2 fl (78-100); Mean Corpuscular Hemoglobin 26.3 pg (27-31); Mean Corpuscular Hgb Conc 30.5 g/dl (32-36); Mean Platelet Volume 9.4 fl (6.0-9.5); Platelet Count 228 K/mm3 (150-450); Red Blood Count 4.19 M/mm3 (4.2-5.4); Red Cell Distribution Width 19.1 % (11.5-14.0); White Blood Count 13.1 K/mm3 (4.0-10.5)
[2017-08-12] MEDS ORDERED: fentaNYL CITRATE/PF 50 MCG/ML AMPUL IV ONE (16:45)
[2017-08-12 16:54] LABS: Total Cells Counted 100
[2017-08-12 17:00] LABS: ALT 27 U/L (19-67); AST 17 U/L (0-48); Albumin * 3.4 gm/dl (3.4-5.0); Alkaline Phosphatase * 65 U/L (50-170); Anion Gap 11.8 mmol/L (6.8-13.8); BUN/Creatinine Ratio 27.2 (9.0-21.6); Bilirubin, Total 0.6 mg/dL (0.0-1.1); Blood Urea Nitrogen 25 mg/dL (3-23); Ca. Corrected For Albumin 9.6 mg/dL (8.4-10.2); Calcium * 9.4 mg/dL (7.9-10.9); Chloride 101 mmol/L (97-106); Glucose * 106 mg/dL (70-110); Potassium 3.8 mmol/L (3.4-4.6); Prothrombin Time (Patient) 9.3 Seconds (9.0-11.0); Sodium 140 mmol/L (132-142); Troponin I Less than 0.017 ng/ml (0.00-0.10)
[2017-08-12 17:20] LABS: INR 0.93 INR (0.90-1.10); Partial Thrombolplastin Time 20.1 Seconds (24-32)
[2017-08-12 17:42] LABS: Band 1 % (0-2.0); Eosinophil 1 % (0-3); Immature Granulocyte 4 (0-1); Lymphocyte 10 % (20-51); Monocyte 2 % (0-9); Neutrophil 82 % (42-75); Neutrophil # 10.7 K/mm3 (1.3-6.0)
[2017-08-12 17:45] LABS: Platelet Estimate Normal (NORMAL); RBC Morphology Normal (NORMAL)
[2017-08-12] MEDS ORDERED: MAGNESIUM CITRATE 300 ML BTL PO ONE (20:03)
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
[2017-08-12] MEDS ORDERED: SENNOSIDES 8.6 MG TABLET PO SCH (21:00)
[2017-08-12] MEDS ORDERED: MAGNESIUM CITRATE 300 ML BTL ONE (22:36)
[2017-08-12 23:40] LABS: Urine Bilirubin Negative (NEGATIVE); Urine Blood Negative /ul (NEGATIVE); Urine Ketone Negative (NEGATIVE); Urine Nitrite Negative (NEGATIVE); Urine Protein Negative (NEGATIVE); Urine Specific Gravity 1.015 SP.GR. (1.005-1.010); Urine Urobilinogen Normal (NORMAL)
[2017-08-12] MEDS ORDERED: traMADol HCL 50 MG TABLET PO PRN (23:59)
[2017-08-13 00:15] LABS: Urine Appearance Cloudy (CLEAR); Urine Bacteria 2+; Urine Color Yellow; Urine RBC None Seen /hpf (0-5)
[2017-08-13] MEDS ORDERED: INSULIN GLARGINE SQ SCH (00:15)
[2017-08-13] MEDS ORDERED: INSULIN GLARGINE,HUM.REC.ANLOG 100 UNITS/ML VIAL SC ONE (00:15)
[2017-08-13] MEDS: HYDROcodone/ACETAMINOPHEN 1 EACH TABLET PO PRN ×2 (01:51→07:50)
[2017-08-13 02:13] LABS: Urine Bilirubin Negative (NEGATIVE); Urine Blood Negative /ul (NEGATIVE); Urine Ketone Negative (NEGATIVE); Urine Protein Negative (NEGATIVE); Urine Urobilinogen Normal (NORMAL)
[2017-08-13 03:01] LABS: Urine Color Yellow; Urine Nitrite Positive (NEGATIVE)
[2017-08-13 03:02] LABS: Urine Appearance Slightly Cloudy (CLEAR); Urine Bacteria 4+; Urine RBC None Seen /hpf (0-5); Urine WBC 0-5 /hpf (0-5)
[2017-08-13] MEDS: NITROFURANTOIN/NITROFURAN MAC 100 MG CAPSULE PO SCH ×2 (04:04→09:55)
[2017-08-13 05:50] LABS: Hematocrit 33.3 % (37.0-47.0); Hemoglobin 10.4 gm/dL (12.5-16.0); Mean Cell Volume 84.7 fl (78-100); Mean Corpuscular Hemoglobin 26.5 pg (27-31); Mean Corpuscular Hgb Conc 31.2 g/dl (32-36); Mean Platelet Volume 8.8 fl (6.0-9.5); Neutrophil # 7.8 K/mm3 (1.3-6.0); Neutrophil % 75.2 % (42-75.0); Platelet Count 212 K/mm3 (150-450); Red Blood Count 3.93 M/mm3 (4.2-5.4); Red Cell Distribution Width 19.3 % (11.5-14.0); White Blood Count 10.4 K/mm3 (4.0-10.5)
[2017-08-13] MEDS ORDERED: LEVOTHYROXINE SODIUM 50 MCG TABLET PO SCH (07:00)
[2017-08-13] MEDS ORDERED: LISINOPRIL 5 MG TABLET PO SCH (09:00)
[2017-08-13] MEDS ORDERED: OMEGA-3 FATTY ACIDS 1 CAP CAPSULE PO SCH (09:00)
[2017-08-13] MEDS ORDERED: ATORVASTATIN CALCIUM 40 MG TABLET PO SCH (09:00)
[2017-08-13] MEDS ORDERED: BETA-CAROTENE(A) W-C , E/MIN 1 TAB TABLET PO SCH (09:00)
[2017-08-13] MEDS ORDERED: SERTRALINE HCL 50 MG TABLET PO SCH (09:00)
[2017-08-13] MEDS ORDERED: FAMOTIDINE 20 MG TABLET PO SCH (09:00)
--- NOTE | 2017-08-13 11:40 | DS ---
(1) Dementia Problem: Acute Qualifiers: Dementia type: unspecified type Dementia behavioral disturbance: with behavioral disturbance Qualified Code(s): F03.91 - Unspecified dementia with behavioral disturbance (2) UTI (urinary tract infection) Problem: Acute (3) Weakness Problem: Acute Description of Stay: Shaina was admitted to observation for severe weakness secondary to urinary tract infection. She was given fluids and started on antibiotics and improved. Her strength returned over night and she was able to be discharged to home. Procedures Performed: none Discharge Location: Home w [facility] Home Health Disposition: Home Health Service Condition: Fair Discharge Activity: Activity as tolerated Discharge Diet: Consistent carbs Referrals: Chacho Allen DO [Primary Care Provider] - Two Weeks Problem Oriented Discharge Instructions to Patient/Family: Urinary Tract Infection, Adult, [id number] Additional Patient Instructions (free text): [facility] Home Health ongoing, please call and fax discharge orders. Prescriptions (Any new or edited meds): Nitrofurantoin/Nitrofuran Mac [Macrobid] 100 mg PO BID #40 capsule Complete Home Medications List: Complete Home Medication List: Atorvastatin Calcium 20 mg PO DAILY 08/12/17 Azithromycin 250 mg PO DAILY 08/12/17 Insulin Glargine,Hum.rec.anlog [Lantus Solostar] 30 unit SQ HS 08/12/17 Levothyroxine Sodium [Synthroid] 50 mcg PO DAILY 08/12/17 Lisinopril 5 mg PO DAILY 08/12/17 Ranitidine HCl [Zantac] 150 mg PO BID 08/12/17 traMADol HCL [Tramadol HCl] 50 mg PO PRN PRN 08/12/17 Melatonin 3 mg PO HS 08/13/17 Nitrofurantoin/Nitrofuran Mac [Macrobid] 100 mg PO BID #40 capsule 08/13/17 [place]-3S/Dha/Epa/Fish Oil [Fish Oil 1,200 mg Softgel] 1 each PO DAILY 08/13/17 QUEtiapine FUMARATE [Seroquel] 100 mg PO HS 08/13/17 Sertraline HCl [Zoloft] 50 mg PO DAILY 08/13/17 Vit A/Vit C/Vit E/Zinc/Copper [Preservision Areds Softgel] 1 each PO BID
[2017-08-13 13:31] VITALS: BP 154/62
[2017-08-13] MEDS ORDERED: MELATONIN 3,000 MCG TABLET PO SCH (21:00)
[2017-08-13] MEDS ORDERED: ROSUVASTATIN CALCIUM 10 MG TABLET PO SCH (21:00)
[2017-08-13] MEDS ORDERED: QUEtiapine FUMARATE 100 MG TABLET PO SCH (21:00)
== END 2017-08-13 13:00 | disposition home health service (06) ==
LOC: ER 15:39 → MS 18:57 → INTOOBSV 18:57
PROVIDERS: ADMIT Family Medicine; ATTEND Family Medicine
DX: M79.652 Pain in left thigh; Z79.4 Long term (current) use of insulin; E03.9 Hypothyroidism, unspecified; E11.9 Type 2 diabetes mellitus without complications; J44.9 Chronic obstructive pulmonary disease, unspecified; I10 Essential (primary) hypertension; B96.1 Klebsiella pneumoniae [K. pneumoniae] as the cause of diseases classified elsewhere; F03.90 Unspecified dementia, unspecified severity, without behavioral disturbance, psychotic disturbance, mood disturbance, and anxiety; K59.00 Constipation, unspecified; N39.0 Urinary tract infection, site not specified; K21.9 Gastro-esophageal reflux disease without esophagitis
CPT/HCPCS: 36415; 71010; 71045; 72040; 72170; 73552; 80053; 81001; 82550; 84484; 85025; 85610; 85730; 87077; 87086; 87186; 93005; 96372; 97162; 99284; G0378; G8978; G8979; G8980

== ENCOUNTER 2018-02-03 10:10 | Inpatient (IN) ==
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
[2018-02-03] MEDS ORDERED: NORMAL SALINE 1,000 ML IV ONE ×3 (11:34→14:43)
[2018-02-03 11:38] LABS: Hematocrit 32.5 % (37.0-47.0); Hemoglobin 9.9 gm/dL (12.5-16.0); Mean Cell Volume 82.7 fl (78-100); Mean Corpuscular Hemoglobin 25.2 pg (27-31); Mean Corpuscular Hgb Conc 30.5 g/dl (32-36); Mean Platelet Volume 9.8 fl (8-12.5); Platelet Count 141 K/mm3 (150-450); Red Blood Count 3.93 M/mm3 (4.2-5.4); Red Cell Distribution Width 17.8 % (11.5-14.0); White Blood Count 30.7 K/mm3 (4.0-10.5)
[2018-02-03 11:45] LABS: Albumin * 3.1 gm/dl (3.4-5.0); Anion Gap 12.9 mmol/L (6.8-13.8); BUN/Creatinine Ratio 20.6 (9.0-21.6); Bilirubin, Total 0.5 mg/dL (0.0-1.1); Ca. Corrected For Albumin 9.1 mg/dL (8.4-10.2); Calcium * 8.7 mg/dL (7.9-10.9); Carbon Dioxide 24.4 mmol/L (24-32.6); Potassium 4.3 mmol/L (3.4-4.6); Total Protein 6.9 gm/dL (6.2-8.2)
[2018-02-03 11:48] LABS: Total Cells Counted 100
[2018-02-03 12:38] LABS: Atypical (Reactive) Lymph 3 % (0-2); Band 9 % (0-2.0); Immature Granulocyte 9 (0-1); Lymphocyte 3 % (20-51); Monocyte 3 % (0-9); Neutrophil 73 % (42-75); Neutrophil # 22.4 K/mm3 (1.3-6.0); Platelet Estimate Decreased (NORMAL)
[2018-02-03 12:52] LABS: Urine Bilirubin Negative (NEGATIVE); Urine Blood 250 /ul (NEGATIVE); Urine Ketone Negative (NEGATIVE); Urine Nitrite Negative (NEGATIVE); Urine Protein 100 mg/dL (NEGATIVE); Urine Specific Gravity >=1.030 SP.GR. (1.005-1.010); Urine Urobilinogen Normal (NORMAL); Urine pH 5.5 pH (5.0-7.0)
[2018-02-03 13:02] LABS: Urine Appearance Cloudy (CLEAR); Urine Bacteria 3+; Urine Color Yellow; Urine RBC 25-50 /hpf (0-5); Urine WBC >50 /hpf (0-5)
--- NOTE | 2018-02-03 14:19 | PATHPSR ---
PHYSICIAN: Eyad Lund MD LAB#: [id number] SPECIMEN DATE: 02/03/2018 CLINICAL INFORMATION: The patient is an 82-year-old type II diabetic woman with asthma, COPD who presented to the ER at [facility] feeling poorly, hypotension identified. Patient has elevated lactic acid 3.5 mmoles/l. Blood Cultures and urine cultures are pending. Bacterial sepsis is being considered. Peripheral smear review by pathologist is ordered because previous WBC on 09/28/2017 was 10 K/mm3; current WBC 30.7 K/mm3 with a left shift including 9% immature granulocytes. CBC: WBC 30.7 K/mm3, hemoglobin 9.9 gm/dl, hematocrit 32.5 %, MCV is 82.7 fl, MCH is 25.2 pg, MCHC is 30.5 g/dl, Platelet count 141,000/mm3. Manual differential: Neutrophils 73 %, bands 9 %, lymphocytes 3 %, monocytes 2 %, eosinophils 0 %, basophils 0 %, atypical reactive lymphocytes 3 %, immature granulocytes 9% . RED BLOOD CELLS: ANEMIA PLATELETS: No abnormalities WHITE BLOOD CELLS: Leukocytosis with left shift in granulocytic series; toxic granulation and dohle bodies DIAGNOSIS: PERIPHERAL BLOOD SMEAR, REVIEW BY PATHOLOGIST: -LEUKEMOID REACTION -NORMOCHROMIC NORMOCYTIC ANEMIA COMMENT: Patient has a severe leukemoid reaction but the lactic acid abnormalities suggest it is reactive due to the patient's possible sepsis ( procalcitonin is pending at the time of this report). Clinical follow-up to insure resolution of the leukemoid reaction following treatment is suggested. If the left shift in granulocyte series persists and this level of leukocytosis continues, further evaluation may be indicated to exclude a myeloproliferative disorder including hematology consult and possible bone marrow evaluation.
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
[2018-02-03] MEDS ORDERED: predniSONE 20 MG TABLET PO ONE (16:00)
[2018-02-03] MEDS ORDERED: predniSONE 20 MG TABLET ONE (17:07)
[2018-02-03] MEDS ORDERED: ACETAMINOPHEN 325 MG TABLET PO PRN (17:19)
[2018-02-03] MEDS ORDERED: INSULIN GLARGINE,HUM.REC.ANLOG 100 UNITS/ML VIAL SC SCH (21:00)
[2018-02-03] MEDS: MELATONIN 3,000 MCG TABLET PO SCH (22:15)
[2018-02-03] MEDS: FAMOTIDINE 20 MG TABLET PO SCH (22:15)
[2018-02-03] MEDS: QUEtiapine FUMARATE 100 MG TABLET PO SCH (22:16)
[2018-02-04] MEDS: LEVOTHYROXINE SODIUM 50 MCG TABLET PO SCH (06:43)
[2018-02-04] MEDS: predniSONE 5 MG TABLET PO SCH (08:29)
[2018-02-04] MEDS: SERTRALINE HCL 50 MG TABLET PO SCH (08:30)
[2018-02-04] MEDS: FAMOTIDINE 20 MG TABLET PO SCH ×2 (08:30→20:09)
[2018-02-04] MEDS ORDERED: LISINOPRIL 5 MG TABLET PO SCH (09:00)
--- NOTE | 2018-02-04 12:54 | PN ---
Subjective - Date and Time Seen Date: 02/04/18 Time: 12:52 Subjective Narrative: She feels better and has had no diarrhea. Objective - Review of Systems Generalized/Overall Review: Reports: Weakness. Denies: Chills, Fever Respiratory: Denies: Cough, Shortness of Breath Cardiac: Denies: Chest Pain, Edema, Palpitations Abdominal: Denies: Nausea, Vomiting Genitourinary Symptoms: Denies: Urgency, Frequency - Vitals Vitals: Last Vital Signs Temp 36.7 C 02/04/18 10:39 Pulse 88 02/04/18 10:39 Resp 16 02/04/18 10:39 BP 158/68 H 02/04/18 10:39 Pulse Ox 99 02/04/18 10:39 - Abnormal Lab Findings Abnormal Lab Findings: Abnormal Lab Results 02/03/18 02/03/18 02/03/18 Range/Units 12:44 13:59 Unknown Lactic Acid, Venous 2.1 H (0.4-2.0) mmol/L Procalcitonin 102.19 H (0.05-0.50) ng/mL Urine Protein 100 H (NEGATIVE) mg/dL Urine Glucose (UA) 250 H (NEGATIVE) mg/dL Urine Blood 250 H (NEGATIVE) /ul Prot Sulfosalicylic Acd 3+ H (0) mg/dL Ur Leukocyte Esterase 500 H (NEGATIVE) /ul Urine RBC 25-50 H (0-5) /hpf Urine WBC >50 H (0-5) /hpf Ur Epithelial Cells 5-10 H (0-5) /hpf Urine Bacteria 3+ H (NONE) - Exam Constitutional: Present: Alert, Oriented x3, Cooperative, Elderly, Obese ENT Exam: Present: hearing grossly normal Neck: Present: supple Respiratory: Present: normal breath sounds, No rales, No wheezing Cardiovascular/Chest: Present: regular rate, rhythm, no JVD, no murmur Abdomen: Present: Normal bowel sounds, soft, nontender, nondistended Extremity: Present: no pedal edema, no calf tenderness Assessment/Plan - Problems/Diagnosis (1) Sepsis due to urinary tract infection Problem: Acute Narrative: Gram negative bacilli bacteremia . continue with IV antibiotics. (2) UTI (urinary tract infection) Problem: Acute Narrative: Gram negative bacilli on gram stain. continue with IV antibiotics. (3) Lactic acidosis Problem: Acute (4) Leukemoid reaction Problem: Acute Narrative: will do a follow up CBC (5) Diabetes Problem: Chronic Qualifiers: Diabetes mellitus type: type 2 (6) Hypertension Problem: Chronic Qualifiers: Hypertension type: essential hypertension Qualified Code(s): I10 - Essential (primary) hypertension (7) Hypothyroidism Problem: Chronic (8) Polymyalgia rheumatica Problem: Acute
[2018-02-04 13:14] LABS: Hematocrit 29.4 % (37.0-47.0); Hemoglobin 8.9 gm/dL (12.5-16.0); Mean Cell Volume 82.6 fl (78-100); Mean Corpuscular Hgb Conc 30.3 g/dl (32-36); Mean Platelet Volume 10.4 fl (8-12.5); Platelet Count 109 K/mm3 (150-450); Red Blood Count 3.56 M/mm3 (4.2-5.4); Red Cell Distribution Width 17.9 % (11.5-14.0); White Blood Count 21.4 K/mm3 (4.0-10.5)
[2018-02-04 13:19] LABS: Anion Gap 13.7 mmol/L (6.8-13.8); BUN/Creatinine Ratio 24.8 (9.0-21.6); Calcium * 8.5 mg/dL (7.9-10.9); Carbon Dioxide 23.2 mmol/L (24-32.6); Estimated Creat Clear 23.8; Potassium 4.9 mmol/L (3.4-4.6)
[2018-02-04 13:22] LABS: Total Cells Counted 100
[2018-02-04 13:52] LABS: Band 4 % (0-2.0); Lymphocyte 1 % (20-51); Monocyte 2 % (0-9); Neutrophil 93 % (42-75); Neutrophil # 19.9 K/mm3 (1.3-6.0); Platelet Estimate Decreased (NORMAL)
[2018-02-04 13:53] LABS: RBC Morphology Normal (NORMAL)
[2018-02-04] MEDS: INSULIN LISPRO 100 UNITS/ML VIAL SC SCH (16:45)
[2018-02-04] MEDS: MELATONIN 3,000 MCG TABLET PO SCH (20:09)
[2018-02-04] MEDS: QUEtiapine FUMARATE 100 MG TABLET PO SCH (20:10)
[2018-02-04] MEDS: INSULIN GLARGINE,HUM.REC.ANLOG 100 UNITS/ML VIAL SC SCH (20:11)
[2018-02-05] MEDS: INSULIN LISPRO 100 UNITS/ML VIAL SC SCH ×3 (06:55→17:10)
[2018-02-05] MEDS: LEVOTHYROXINE SODIUM 50 MCG TABLET PO SCH (06:56)
[2018-02-05] MEDS: traMADol HCL 50 MG TABLET PO PRN ×2 (09:46→20:17)
[2018-02-05] MEDS: predniSONE 5 MG TABLET PO SCH (09:48)
[2018-02-05] MEDS: LISINOPRIL 10 MG TABLET PO SCH (09:48)
[2018-02-05] MEDS: FAMOTIDINE 20 MG TABLET PO SCH ×2 (09:48→20:11)
[2018-02-05] MEDS: SERTRALINE HCL 50 MG TABLET PO SCH (09:49)
--- NOTE | 2018-02-05 10:43 | PN ---
Subjective - Date and Time Seen Date: 02/05/18 Time: 10:37 Subjective Narrative: Complainingo back and neck pain. UA growing E. Coli. Objective - Review of Systems Generalized/Overall Review: Denies: Chills, Fever Respiratory: Denies: Cough, Shortness of Breath, Orthopnea Cardiac: Denies: Chest Pain, Edema, Palpitations Abdominal: Denies: Nausea, Vomiting Genitourinary Symptoms: Denies: Urgency, Frequency Musculoskeletal Complaints: Reports: Back Pain, Neck Pain - Vitals Vitals: Last Vital Signs Temp 36.7 C 02/05/18 06:37 Pulse 70 02/05/18 09:48 Resp 18 02/05/18 06:37 BP 132/48 02/05/18 09:48 Pulse Ox 98 02/05/18 06:37 - Abnormal Lab Findings Abnormal Lab Findings: Abnormal Lab Results 02/04/18 02/04/18 Range/Units 12:57 12:57 WBC 21.4 H D (4.0-10.5) K/mm3 RBC 3.56 L (4.2-5.4) M/mm3 Hgb 8.9 L (12.5-16.0) gm/dL Hct 29.4 L (37.0-47.0) % MCH 25.0 L (27-31) pg MCHC 30.3 L (32-36) g/dl RDW 17.9 H (11.5-14.0) % Plt Count 109 L (150-450) K/mm3 Neutrophils % (Manual) 93 H (42-75) % Band Neuts % (Manual) 4 H (0-2.0) % Lymphocytes % (Manual) 1 L (20-51) % Neutrophils # (Manual) 19.9 H (1.3-6.0) K/mm3 Lymphocytes # (Manual) 0.2 L (1.5-3.5) k/mm3 Platelet Estimate Decreased L (NORMAL) Potassium 4.9 H (3.4-4.6) mmol/L Carbon Dioxide 23.2 L (24-32.6) mmol/L BUN 37 H (3-23) mg/dL Creatinine 1.49 H D (0.4-1.4) mg/dL Est GFR (Non-Af Amer) 36 L D (60-130) mL/min BUN/Creatinine Ratio 24.8 H (9.0-21.6) Random Glucose 420 H D (70-110) mg/dL - Exam Constitutional: Present: Alert, Oriented x3, Cooperative, Elderly, Obese ENT Exam: Present: hearing grossly normal Neck: Present: stiff neck Respiratory: Present: decreased breath sounds, No rales, No wheezing Cardiovascular/Chest: Present: regular rate, rhythm, no JVD, no murmur Abdomen: Present: Normal bowel sounds, soft, nontender, nondistended Extremity: Present: no pedal edema, no calf tenderness Assessment/Plan Plan Narrative: Continue with present management. - Problems/Diagnosis (1) Sepsis due to urinary tract infection Problem: Acute Narrative: gram Negative Bacilli. WBC down to 20 from 30. (2) UTI (urinary tract infection) Problem: Acute Qualifiers: Urinary tract infection type: site unspecified Narrative: E. Coli/Citrobacter sensitive to Rocephin (3) Lactic acidosis Problem: Acute (4) Leukemoid reaction Problem: Acute Narrative: down to 20 (5) Diabetes Problem: Chronic Qualifiers: Diabetes mellitus type: type 2 (6) Hypertension Problem: Chronic Qualifiers: Hypertension type: essential hypertension Qualified Code(s): I10 - Essential (primary) hypertension (7) Hypothyroidism Problem: Chronic (8) Polymyalgia rheumatica Problem: Acute (9) Neck pain Problem: Acute Narrative: and back pain- musculoskeletal. continue with biofreeze. cannot get NSIADS due to CRF. continue with Tyelnol or tramadol PRN for pain.
[2018-02-05] MEDS: MELATONIN 3,000 MCG TABLET PO SCH (20:11)
[2018-02-05] MEDS: QUEtiapine FUMARATE 100 MG TABLET PO SCH (20:11)
[2018-02-05] MEDS: INSULIN GLARGINE,HUM.REC.ANLOG 100 UNITS/ML VIAL SC SCH (20:12)
[2018-02-06] MEDS: traMADol HCL 50 MG TABLET PO PRN (03:24)
[2018-02-06 05:53] LABS: Hematocrit 31.8 % (37.0-47.0); Hemoglobin 9.7 gm/dL (12.5-16.0); Mean Cell Volume 81.3 fl (78-100); Mean Corpuscular Hemoglobin 24.8 pg (27-31); Mean Corpuscular Hgb Conc 30.5 g/dl (32-36); Mean Platelet Volume 10.6 fl (8-12.5); Neutrophil # 7.5 K/mm3 (1.3-6.0); Platelet Count 128 K/mm3 (150-450); Red Blood Count 3.91 M/mm3 (4.2-5.4); Red Cell Distribution Width 17.5 % (11.5-14.0); White Blood Count 9.2 K/mm3 (4.0-10.5)
[2018-02-06 06:36] LABS: BUN/Creatinine Ratio 21.7 (9.0-21.6); Calcium * 8.6 mg/dL (7.9-10.9); Carbon Dioxide 27.7 mmol/L (24-32.6); Estimated Creat Clear 27.5; Potassium 3.7 mmol/L (3.4-4.6)
[2018-02-06] MEDS: LEVOTHYROXINE SODIUM 50 MCG TABLET PO SCH (06:41)
[2018-02-06] MEDS: INSULIN LISPRO 100 UNITS/ML VIAL SC SCH ×3 (06:41→16:41)
[2018-02-06] MEDS: FAMOTIDINE 20 MG TABLET PO SCH (08:24)
[2018-02-06] MEDS: SERTRALINE HCL 50 MG TABLET PO SCH (08:25)
[2018-02-06] MEDS: LISINOPRIL 10 MG TABLET PO SCH (08:25)
[2018-02-06] MEDS: predniSONE 5 MG TABLET PO SCH (08:25)
[2018-02-06] MEDS ORDERED: ENOXAPARIN SODIUM 30 MG/0.3 ML SYRG SC SCH (11:30)
--- NOTE | 2018-02-06 16:06 | DS ---
(1) Septicemia Problem: Acute (2) UTI (urinary tract infection), bacterial Problem: Acute Description of Stay: Shaina is an 82 yo female admitted with sepsis secondary to UTI. She was given IV fluids and started on IV rocephin. Urine cultures and blood cultures were taken. With treatment WBC trended down and ultimately urine culture and blood cultures grew citrobacteria and urine culture also grew E.Coli. Based on sensitivities these bacteria are sensitive to Ciprofloxacin. She has improved and has normal vitals, leukocytosis has resolved, she is afebrile, and her mental status is back to baseline. Will discharge to home today on Ciprofloxacin 500mg BID x 10 days. Procedures Performed: none Results and Findings: Lab Pending Results 02/03/18 11:10: WBC 30.7 H, RBC 3.93 L, Hgb 9.9 L, Hct 32.5 L, MCV 82.7, MCH 25.2 L, MCHC 30.5 L, RDW 17.8 H, Plt Count 141 L, MPV 9.8, Neutrophils % (Manual ) 73, Band Neuts % (Manual) 9 H, Lymphocytes % (Manual) 3 L, Monocytes % (Manual ) 3, Immature Granulocytes 9 H, Neutrophils # (Manual) 22.4 H, Lymphocytes # ( Manual) 0.9 L, Monocytes # (Manual) 0.9, Atypic/Reactive Lymphs 3 H, Platelet Estimate Decreased L 02/03/18 11:10: Sodium 127 L, Plasma Sodium 128 L, Potassium 4.3, Chloride 94 L , Carbon Dioxide 24.4, Anion Gap 12.9, BUN 50 H D, Creatinine 2.43 H D, Est GFR (Non-Af Amer) 20 L D, BUN/Creatinine Ratio 20.6, Random Glucose 181 H, Calcium 8.7, Calcium Adj for Albumin 9.1, Total Bilirubin 0.5, AST 36, ALT 53, Alkaline Phosphatase 134, Total Protein 6.9, Albumin 3.1 L 02/03/18 11:10: Lactic Acid, Venous 3.5 H* 02/03/18 11:10: Absolute Retic 0.0522, Percent Retic 1.4, Immature Retic Fraction 8.8, Retic Hgb Content 28.4 L 02/03/18 12:44: Urine Color Yellow, Urine Appearance Cloudy, Urine pH 5.5, Ur Specific [place] >=1.030, Urine Protein 100 H, Urine Glucose (UA) 250 H, Urine Ketones Negative, Urine Blood 250 H, Urine Nitrate Negative, Urine Bilirubin Negative, Prot Sulfosalicylic Acd 3+ H, Urine Urobilinogen Normal, Ur Leukocyte Esterase 500 H, Urine RBC 25-50 H, Urine WBC >50 H, Ur Epithelial Cells 5-10 H, Urine Bacteria 3+ H, Urine Culture Comments Culture to follow 02/03/18 13:45: Peripheral Blood Smear Smear sent to path. 02/03/18 13:59: Lactic Acid, Venous 2.1 H 02/03/18 : Procalcitonin 102.19 H 02/04/18 12:57: WBC 21.4 H D, RBC 3.56 L, Hgb 8.9 L, Hct 29.4 L, MCV 82.6, MCH 25.0 L, MCHC 30.3 L, RDW 17.9 H, Plt Count 109 L, MPV 10.4, Neutrophils % ( Manual) 93 H, Band Neuts % (Manual) 4 H, Lymphocytes % (Manual) 1 L, Monocytes % (Manual) 2, Neutrophils # (Manual) 19.9 H, Lymphocytes # (Manual) 0.2 L, Monocytes # (Manual) 0.4, Platelet Estimate Decreased L, RBC Morphology Normal 02/04/18 12:57: Sodium 132, Plasma Sodium 137, Potassium 4.9 H, Chloride 100, Carbon Dioxide 23.2 L, Anion Gap 13.7, BUN 37 H, Creatinine 1.49 H D, Est GFR ( Non-Af Amer) 36 L D, BUN/Creatinine Ratio 24.8 H, Random Glucose 420 H D, Calcium 8.5 02/06/18 05:40: WBC 9.2 D, RBC 3.91 L, Hgb 9.7 L, Hct 31.8 L, MCV 81.3, MCH 24.8 L, MCHC 30.5 L, RDW 17.5 H, Plt Count 128 L, MPV 10.6, Immature Gran % ( Auto) 0.70 H, Immature Gran # (Auto) 0.06 H, Neutrophils % 81.0 H, Lymphocytes % 9.7 L, Monocytes % 7.4, Eosinophils % 1.1, Basophils % 0.1, Nucleated RBC % 0.0, Neutrophils # 7.5 H, Lymphocytes # 0.89 L, Monocytes # 0.7, Eosinophils # 0.1, Absolute Basophils 0.0 02/06/18 05:40: Sodium 137, Plasma Sodium 137, Potassium 3.7 D, Chloride 102, Carbon Dioxide 27.7, Anion Gap 11.0, BUN 28 H, Creatinine 1.29, Est GFR (Non-Af Amer) 42 L, BUN/Creatinine Ratio 21.7 H, Random Glucose 75 D, Calcium 8.6 Discharge Location: Home Disposition: Home Health Service [place] [facility] Agency: [facility] Condition: Good Discharge Activity: Activity as tolerated Discharge Diet: General/regular food Referrals: Chacho Allen DO [Primary Care Provider] - Two Weeks Problem Oriented Discharge Instructions to Patient/Family: Urinary Tract Infection, Adult, [id number], Sepsis, Adult Additional Patient Instructions (free text): Resume [facility] at discharge- fax orders and medications and call report. -Please make TCM appointment unless care home discharge. Thank you! Nilam @ [phone]. Prescriptions (Any new or edited meds): Ciprofloxacin HCl [Cipro] 500 mg PO BID #20 tab Complete Home Medications List: Complete Home Medication List: [place]-3S/Dha/Epa/Fish Oil [Fish Oil 1,200 mg Softgel] 1 ea PO BID 08/13/17 Sertraline HCl [Zoloft] 50 mg PO DAILY 08/13/17 Acetaminophen 325 mg PO Q4H PRN 09/28/17 Menthol [Icy Hot] 1 spray TP BID PRN 09/28/17 Vit A/Vit C/Vit E/Zinc/Copper [Preservision Areds Softgel] 1 ea PO BID 09/28/17 levothyroxine 50 mcg tablet 50 mcg PO DAILY #30 tab 11/24/17 lisinopril 5 mg tablet 5 mg PO DAILY #30 tab 11/24/17 melatonin 3 mg tablet 3 mg PO HS #30 tab 11/24/17 quetiapine 100 mg tablet 100 mg PO HS #30 tab 11/24/17 ranitidine 150 mg tablet 150 mg PO BID #60 tab 11/24/17 nitrofurantoin monohydrate/macrocrystals 100 mg capsule 100 mg PO DAILY #14 cap 12/21/17 blood sugar diagnostic strips See Dose Instructions .ROUTE .MEDSUPPLY #100 ea insulin glargine (U-100) 100 unit/mL (3 mL) subcutaneous pen 30 unit SUB-Q HS # 9 ml 01/06/18 tramadol 50 mg tablet 50 mg PO Q6H PRN #120 tab 01/21/18 pen needle, diabetic 32 gauge x 10/05" See Dose Instructions .ROUTE .MEDSUPPLY # 100 ea 01/25/18 Ciprofloxacin HCl [Cipro] 500 mg PO BID #20 tab 02/06/18 predniSONE [Prednisone] 15 mg PO DAILY tablet 02/06/18
[2018-02-06 17:37] VITALS: BP 139/97
== END 2018-02-06 17:37 | disposition home health service (06) | DRG 872 ==
LOC: ER 10:10 → MS 13:08
PROVIDERS: ADMIT Internal Medicine; ATTEND Internal Medicine
CPT/HCPCS: 36415; 80048; 80053; 81001; 83605; 84145; 85007; 85025; 85045; 87040; 87077; 87086; 87186; 96361; 96365; 99285

== ENCOUNTER 2018-04-14 09:58 | Observation (INO) | payer MEDICAID, MEDICARE ==
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
[2018-04-14] MEDS ORDERED: ONDANSETRON HCL/PF 2 MG/ML VIAL IV ONE (10:32)
[2018-04-14] MEDS ORDERED: MORPHINE SULFATE 2 MG/ML DISP.SYRIN IV ONE (10:32)
[2018-04-14] MEDS ORDERED: NORMAL SALINE 1,000 ML IV ONE (10:32)
[2018-04-14 10:51] LABS: Hematocrit 26.8 % (37.0-47.0); Mean Cell Volume 77.5 fl (78-100); Mean Corpuscular Hemoglobin 22.8 pg (27-31); Mean Corpuscular Hgb Conc 29.5 g/dl (32-36); Mean Platelet Volume 9.1 fl (8-12.5); Neutrophil # 9.9 K/mm3 (1.3-6.0); Neutrophil % 86.9 % (42-75.0); Platelet Count 298 K/mm3 (150-450); Red Blood Count 3.46 M/mm3 (4.2-5.4); Red Cell Distribution Width 17.7 % (11.5-14.0); White Blood Count 11.4 K/mm3 (4.0-10.5)
[2018-04-14 10:54] LABS: Hemoglobin 7.9 gm/dL (12.5-16.0)
[2018-04-14 11:04] LABS: Albumin * 2.4 gm/dl (3.4-5.0); Anion Gap 14.5 mmol/L (6.8-13.8); BUN/Creatinine Ratio 13.9 (9.0-21.6); Bilirubin, Total 0.3 mg/dL (0.0-1.1); Ca. Corrected For Albumin 10.1 mg/dL (8.4-10.2); Calcium * 9.1 mg/dL (7.9-10.9); Carbon Dioxide 24.4 mmol/L (24-32.6); Potassium 3.9 mmol/L (3.4-4.6); Total Protein 6.8 gm/dL (6.2-8.2)
[2018-04-14 12:17] LABS: Urine Bilirubin Negative (NEGATIVE); Urine Blood 25 /ul (NEGATIVE); Urine Ketone Negative (NEGATIVE); Urine Nitrite Negative (NEGATIVE); Urine Protein Negative (NEGATIVE); Urine Urobilinogen Normal (NORMAL)
[2018-04-14 12:27] LABS: Urine Appearance Slightly Cloudy (CLEAR); Urine Color Pale Yellow; Urine RBC TRACE /hpf (0-5); Urine WBC 0-5 /hpf (0-5); Urine Yeast Moderate - 2+
[2018-04-14 12:28] LABS: Urine Bacteria None Seen
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
[2018-04-14] MEDS: INSULIN LISPRO 100 UNITS/ML VIAL SC SCH (17:48)
[2018-04-14] MEDS ORDERED: ACETAMINOPHEN 325 MG TABLET PO PRN (19:04)
[2018-04-14] MEDS: KETOROLAC TROMETHAMINE 15 MG/ML VIAL IV SCH (19:50)
[2018-04-14] MEDS ORDERED: KETOROLAC TROMETHAMINE 30 MG/ML VIAL IV SCH (20:00)
[2018-04-14] MEDS ORDERED: MELATONIN 3,000 MCG TABLET PO SCH (21:00)
[2018-04-14] MEDS ORDERED: QUEtiapine FUMARATE 100 MG TABLET PO SCH (21:00)
[2018-04-14] MEDS ORDERED: INSULIN GLARGINE,HUM.REC.ANLOG 100 UNITS/ML VIAL SC SCH (21:00)
[2018-04-14] MEDS: SULFAMETHOXAZOLE/TRIMETHOPRIM 1 TAB TABLET PO SCH (21:51)
[2018-04-14] MEDS ORDERED: METHYLPREDNISOLONE SOD SUCC/PF 125 MG/2 ML VIAL IV SCH (22:15)
[2018-04-15] MEDS: KETOROLAC TROMETHAMINE 15 MG/ML VIAL IV SCH ×2 (02:59→07:08)
[2018-04-15] MEDS ORDERED: LEVOTHYROXINE SODIUM 50 MCG TABLET PO SCH (06:30)
[2018-04-15] MEDS: INSULIN LISPRO 100 UNITS/ML VIAL SC SCH ×2 (07:05→11:54)
[2018-04-15] MEDS: SULFAMETHOXAZOLE/TRIMETHOPRIM 1 TAB TABLET PO SCH (08:32)
[2018-04-15] MEDS ORDERED: predniSONE 20 MG TABLET PO SCH (09:00)
[2018-04-15] MEDS ORDERED: LISINOPRIL 5 MG TABLET PO SCH (09:00)
[2018-04-15] MEDS ORDERED: FAMOTIDINE 20 MG TABLET PO SCH (09:00)
[2018-04-15 09:23] LABS: Hematocrit 25.6 % (37.0-47.0); Mean Cell Volume 77.8 fl (78-100); Mean Corpuscular Hemoglobin 22.8 pg (27-31); Mean Corpuscular Hgb Conc 29.3 g/dl (32-36); Mean Platelet Volume 8.8 fl (8-12.5); Platelet Count 289 K/mm3 (150-450); Red Blood Count 3.29 M/mm3 (4.2-5.4); Red Cell Distribution Width 17.5 % (11.5-14.0); White Blood Count 10.3 K/mm3 (4.0-10.5)
[2018-04-15 09:25] LABS: Hemoglobin 7.5 gm/dL (12.5-16.0)
[2018-04-15 09:26] LABS: Total Cells Counted 100
[2018-04-15 09:41] LABS: Iron 11 mcg/dL (35-120); Transferrin Sat. (% Sat.) 5 % (15-55)
[2018-04-15 10:06] LABS: ALT 10 U/L (19-67); AST 11 U/L (0-48); Albumin * 2.1 gm/dl (3.4-5.0); Alkaline Phosphatase * 88 U/L (50-170); Anion Gap 10.5 mmol/L (6.8-13.8); BUN/Creatinine Ratio 15.3 (9.0-21.6); Bilirubin, Total 0.2 mg/dL (0.0-1.1); Blood Urea Nitrogen 22 mg/dL (3-23); Ca. Corrected For Albumin 10.1 mg/dL (8.4-10.2); Calcium * 8.9 mg/dL (7.9-10.9); Carbon Dioxide 27.7 mmol/L (24-32.6); Chloride 100 mmol/L (97-106); Ferritin 72 ng/mL (8-252); Glucose * 244 mg/dL (70-110); Potassium 4.2 mmol/L (3.4-4.6); Sodium 134 mmol/L (132-142); Total Protein 6.2 gm/dL (6.2-8.2); Vitamin B12 478 pg/mL (193-986)
[2018-04-15 10:11] LABS: Eosinophil 2 % (0-3); Lymphocyte 8 % (20-51); Monocyte 7 % (0-9); Neutrophil 83 % (42-75); Neutrophil # 8.5 K/mm3 (1.3-6.0)
[2018-04-15 10:13] LABS: Anisocytosis 2+; Hypochromia 1+; Spherocyte 1+
[2018-04-15 10:16] LABS: Tear Drop Cells 1+
--- NOTE | 2018-04-15 10:50 | DS ---
(1) UTI (urinary tract infection), bacterial Problem: Acute (2) Generalized weakness Problem: Acute (3) Fall Problem: Acute (4) Polymyalgia rheumatica Problem: Acute (5) Iron deficiency anemia Problem: Acute Qualifiers: Iron deficiency anemia type: unspecified iron deficiency Qualified Code(s): D50.9 - Iron deficiency anemia, unspecified Description of Stay: Shaina is an 83 yo female with polymyalgia rheumatica and frequent UTIs that come to the ER with acute weakness. She was suspected to have a possible flare of her PMR and treated with a higher burst of steroids. She was also identified as having iron deficiency anemia. She has no obvious bleeding sites. Stool hemoccult was negative. She will be started on higher doses of oral iron and will follow up with blood counts as outpatient. Hemoglobin is 7.5. Threshold for transfusion would be <7, so no transfusion needed at this time. Urine culture negative. PT evaluated the patient and feels she is safe for home discharge. She will get home PT with home health. Will continue her on a higher dose of prednisone for a week and then try and taper down again. Procedures Performed: none Results and Findings: Pending Mircobiology Results 04/14/18 11:51 Urine,Catheterized Urine Culture - Preliminary No Growth Lab Pending Results 04/14/18 10:46: WBC 11.4 H, RBC 3.46 L, Hgb 7.9 L*, Hct 26.8 L, MCV 77.5 L, MCH 22.8 L, MCHC 29.5 L, RDW 17.7 H, Plt Count 298, MPV 9.1, Immature Gran % (Auto) 1.40 H, Immature Gran # (Auto) 0.16 H, Neutrophils % 86.9 H, Lymphocytes % 4.3 L, Monocytes % 6.0, Eosinophils % 1.1, Basophils % 0.3, Nucleated RBC % 0.0, Neutrophils # 9.9 H, Lymphocytes # 0.49 L, Monocytes # 0.7, Eosinophils # 0.1, Absolute Basophils 0.0 04/14/18 10:46: Sodium 136, Plasma Sodium 140, Potassium 3.9, Chloride 101, Carbon Dioxide 24.4, Anion Gap 14.5 H, BUN 20, Creatinine 1.44 H, Est GFR (Non- Af Amer) 37 L, BUN/Creatinine Ratio 13.9, Random Glucose 322 H, Calcium 9.1, Calcium Adj for Albumin 10.1, Total Bilirubin 0.3, AST 11, ALT 15 L, Alkaline Phosphatase 99, Total Protein 6.8, Albumin 2.4 L 04/14/18 10:46: Lactic Acid, Venous 1.4 04/14/18 11:51: Urine Color Pale yellow, Urine Appearance Slightly cloudy, Urine pH 6.0, Ur Specific [place] 1.020, Urine Protein Negative, Urine Glucose (UA) 500 H, Urine Ketones Negative, Urine Blood 25 H, Urine Nitrate Negative, Urine Bilirubin Negative, Urine Urobilinogen Normal, Ur Leukocyte Esterase 25 H, Urine RBC Trace, Urine WBC 0-5, Ur Epithelial Cells None seen, Urine Bacteria None seen, Urine Yeast Moderate - 2+ H, Urine Culture Comments Culture to follow 04/14/18 11:57: Stool Occult Blood Negative 04/15/18 09:08: WBC 10.3, RBC 3.29 L, Hgb 7.5 L*, Hct 25.6 L, MCV 77.8 L, MCH 22.8 L, MCHC 29.3 L, RDW 17.5 H, Plt Count 289, MPV 8.8, Neutrophils % (Manual) 83 H, Lymphocytes % (Manual) 8 L, Monocytes % (Manual) 7, Eosinophils % (Manual) 2, Neutrophils # (Manual) 8.5 H, Lymphocytes # (Manual) 0.8 L, Monocytes # (Manual) 0.7, Eosinophils # (Manual) 0.2, Hypochromasia 1+, Anisocytosis 2+, Spherocytes 1+, Tear Drop Cells 1+ 04/15/18 09:08: Sodium 134, Plasma Sodium 136, Potassium 4.2, Chloride 100, Carbon Dioxide 27.7, Anion Gap 10.5, BUN 22, Creatinine 1.44 H, Est GFR (Non-Af Amer) 37 L, BUN/Creatinine Ratio 15.3, Random Glucose 244 H, Calcium 8.9, Calcium Adj for Albumin 10.1, Ferritin 72, Total Bilirubin 0.2, AST 11, ALT 10 L, Alkaline Phosphatase 88, Total Protein 6.2, Albumin 2.1 L, Vitamin B12 478, Folate Greater than 20.0 04/15/18 09:08: Iron 11 L, TIBC 203 L, Transferrin % Sat 5 L Discharge Location: Home Disposition: Home Health Service [place] [facility] Agency: [facility] Health Condition: Stable Referrals: Chacho Allen DO [Primary Care Provider] - One Week Problem Oriented Discharge Instructions to Patient/Family: Iron Deficiency Anemia, Adult Additional Patient Instructions (free text): [facility] ongoing, please call and fax discharge information. Add PT to current [facility] services due to weakness in left lower extremity. Prescriptions (Any new or edited meds): predniSONE [Prednisone] 40 mg PO DAILY #25 tablet Complete Home Medications List: Complete Home Medication List: [place]-3S/Dha/Epa/Fish Oil [Fish Oil 1,200 mg Softgel] 1 ea PO BID 08/13/17 Acetaminophen 325 mg PO Q4H PRN 09/28/17 Menthol [Icy Hot] 1 spray TP BID PRN 09/28/17 Vit A/Vit C/Vit E/Zinc/Copper [Preservision Areds Softgel] 1 ea PO DAILY 09/28/17 levothyroxine 50 mcg tablet 50 mcg PO DAILY #30 tab 11/24/17 lisinopril 5 mg tablet 5 mg PO DAILY #30 tab 11/24/17 melatonin 3 mg tablet 3 mg PO HS #30 tab 11/24/17 quetiapine 100 mg tablet 100 mg PO HS #30 tab 11/24/17 ranitidine 150 mg tablet 150 mg PO BID #60 tab 11/24/17 blood sugar diagnostic strips See Dose Instructions .ROUTE .MEDSUPPLY #100 ea 01/06/18 tramadol 50 mg tablet 50 mg PO Q6H PRN #120 tab 01/21/18 pen needle, diabetic 32 gauge x 5/16" See Dose Instructions .ROUTE .MEDSUPPLY #100 ea 01/25/18 insulin glargine (U-100) 100 unit/mL (3 mL) subcutaneous pen 30 unit SUB-Q HS #9 ml 02/28/18 prednisone 5 mg tablet 5 mg PO DAILY #30 tab 03/13/18 Acetaminophen [Tylenol] 650 mg PO Q6H PRN tablet 04/15/18 Nitrofurantoin Macrocrystal [Nitrofurantoin] 100 mg PO DAILY 04/15/18 Sertraline HCl [Zoloft] 50 mg PO DAILY 04/15/18 predniSONE [Prednisone] 40 mg PO DAILY #25 tablet 04/15/18
[2018-04-15 12:47] VITALS: BP 138/57
[2018-04-15] MEDS ORDERED: INSULIN GLARGINE,HUM.REC.ANLOG 100 UNITS/ML VIAL SC SCH (21:00)
== END 2018-04-15 12:55 | disposition home health service (06) ==
LOC: MS 09:58 → ER 09:58 → MS 13:52
PROVIDERS: ADMIT Family Medicine; ATTEND Family Medicine
DX: D64.9 Anemia, unspecified
CPT/HCPCS: 36415; 70450; 80053; 81001; 82272; 82607; 82728; 82746; 83540; 83550; 83605; 85025; 87086; 96361; 96372; 96374; 96375; 96376; 97161; 99285; G0378; G8978; G8979; G8980; J2405

== ENCOUNTER 2018-12-09 22:44 | Observation (INO) ==
[2018-12-09] MEDS ORDERED: NORMAL SALINE 1,000 ML IV ONE (23:20)
[2018-12-09] MEDS ORDERED: MORPHINE SULFATE 2 MG/ML DISP.SYRIN IV ONE (23:22)
--- NOTE | 2018-12-09 23:27 | ERNOTE ---
Trauma/Assault HPI - Narrative Date of Service: 12/09/18 - General Stated Complaint: UNKNOWN Time Seen by Provider: 12/09/18 23:09 Source: patient - Immun/Allergies/Home Medications Immunizations: IMMUNIZATION HX Immunizations Up to Date Yes History of Influenza Vaccine Yes Hx Pneumococcal Vaccination No Allergies/Adverse Reactions: Allergies No Known Allergies Allergy (Verified 12/09/18 22:52) Home Medications: HOME MEDICATIONS Acetaminophen 325 mg PO Q4H PRN 09/28/17 [Last Taken Unknown] Menthol [Icy Hot] 1 spray TP BID PRN 09/28/17 [Last Taken Unknown] Vit A/Vit C/Vit E/Zinc/Copper [Preservision Areds Softgel] 1 ea PO DAILY 09/28/17 [Last Taken Unknown] blood sugar diagnostic strips See Dose Instructions .ROUTE .MEDSUPPLY #100 ea 01/06/18 [Last Taken Unknown] pen needle, diabetic 32 gauge x 5/16" See Dose Instructions .ROUTE .MEDSUPPLY #100 ea 01/25/18 [Last Taken Unknown] sertraline 50 mg tablet 50 mg PO DAILY #90 tab 09/08/18 [Last Taken Unknown] insulin glargine (U-100) 100 unit/mL (3 mL) subcutaneous pen 30 unit SUBCUT DAILY #9 ml 09/26/18 [Last Taken Unknown] valacyclovir 1 gram tablet 1,000 mg PO TID #21 tab 10/04/18 [Last Taken Unknown] aspirin 81 mg tablet,delayed release 81 mg PO DAILY #30 tab 10/31/18 [Last Taken Unknown] ferrous sulfate 325 mg (65 mg iron) tablet 325 mg PO DAILY #30 tab 10/31/18 [Last Taken Unknown] omega-3 fatty acids 1,000 mg capsule 1,000 mg PO 1200 #30 cap 10/31/18 [Last Taken Unknown] nitrofurantoin macrocrystal 100 mg capsule See Rx Instructions .ROUTE .COMPLEX #30 capsule 11/15/18 [Last Taken Unknown] hydrocodone 10 mg-acetaminophen 325 mg tablet 1 tab PO QID PRN #60 tab 12/06/18 [Last Taken Unknown] Donepezil HCl 5 mg PO DAILY 12/10/18 [Last Taken Unknown] Gabapentin 100 mg PO TID 12/10/18 [Last Taken Unknown] Levothyroxine Sodium [Synthroid] 50 mcg PO DAILY 12/10/18 [Last Taken Unknown] Lisinopril 5 mg PO DAILY 12/10/18 [Last Taken Unknown] Melatonin 3 mg PO HS 12/10/18 [Last Taken Unknown] QUEtiapine FUMARATE [Seroquel] 100 mg PO HS 12/10/18 [Last Taken Unknown] Ranitidine HCl [Heartburn Relief] 150 tab PO BID 12/10/18 [Last Taken Unknown] predniSONE [Prednisone] 1 mg PO DAILY 12/10/18 [Last Taken Unknown] predniSONE [Prednisone] 5 mg PO DAILY 12/10/18 [Last Taken Unknown] - History of Present Illness Narrative: This is an 83-year-old female who lives on her own at home. She does have a medic alert bracelet that she keeps in her bed. The patient got up and went to the bathroom. As she was leaving the bathroom she fell. She did not pass out. She thinks she might of hit her head but is not sure. She attempted to get up but was unable to do so. This was yesterday. The patient has been unable to get up for at least 24 to 36 hours. She has had multiple urinations on herself and stooled herself. She was finally found today, I am not sure exactly how that happened. The patient is complaining of pain to her arms and legs, generalized weakness, and not feeling good. She says the pain in the arms and legs is diffuse. It is severe. The patient also reports that after the fall she noticed that she started coughing quite a bit. She has not had a fever or shortness of breath that she is aware of. The patient denies any chest pain. She denies any vomiting. She denies diarrhea. She denies urinary symptoms. She is a diabetic on insulin but has not taken any insulin in the last 24 hours obviously. She is quite hungry and thirsty. Review of Systems - Review of Systems Constitutional: Present: weakness, malaise EYE: Present: no symptoms reported ENT: Present: no symptoms reported Respiratory: Present: cough. Absent: shortness of breath, wheezing Cardiology: Present: no symptoms reported. Absent: chest pain, palpitations Gastrointestinal/Abdominal: Present: no symptoms reported. Absent: nausea, vomiting, diarrhea Genitourinary: Present: no symptoms reported. Absent: frequency, pain, dysuria, hematuria Musculoskeletal: Present: muscle pain, muscle stiffness, other - Complains of severe pain in bilateral arm, forearm, thigh, leg Skin: Present: no symptoms reported Neurological: Present: headache - Very mild headache Endocrine: Present: no symptoms reported Hematologic/Lymphatic: Present: no symptoms reported Psych: Present: no symptoms reported All Other Systems: All systems neg except as marked Medical History (Updated 11/27/18 @ 14:21 by Bryan Mccarty DO) Low back pain radiating to both legs (Acute) Onset 2 weeks ago. Osteoarthritis of left knee (Chronic) Instability of left knee joint (Chronic) Right flank pain (Acute) R. flank pain radiates into the R. groin. No hx. of kidney stones. No fever or chills.1. UA Herpes zoster (Acute) CHF (congestive heart failure) Asthma COPD (chronic obstructive pulmonary disease) Diabetes mellitus, type II Diarrhea Onset Date: ~01/06/12 Fatigue Hyperlipidemia Hyperthyroidism Lumbar radiculopathy Obesity Pyriformis syndrome right Sciatica Urinary incontinence Blurred vision Emphysema lung Hip pain Ischemic stroke Pneumonia Postmenopausal atrophic vaginitis Onset Date: ~01/12/16 Psoriasis age 17 Rheumatic fever Skin lesion Onset Date: ~10/03/12 left [place] Vaginal pain Onset Date: ~01/12/16 Surgical History: Surgical History (Updated 04/15/18 @ 11:09 by Chacho Allen DO) Cataract Onset Date: ~07/04/07 bilateral, 06/20/07 and 07/04/07 H/O adenoidectomy Onset Date: ~1949 H/O arthroscopic knee surgery left H/O breast surgery left H/O cardiac catheterization Onset Date: ~08/2002 H/O foot surgery left H/O vaginal hysterectomy Onset Date: ~1964 H/O ventral hernia repair Onset Date: ~1998 [place] right lower quad. History of YAG laser capsulotomy of lens Onset Date: ~04/07/10 bilateral, Dr. Hooper 08/15/07 04/07/10 History of appendectomy Onset Date: ~1942 History of tonsillectomy Onset Date: ~1949 Hx of cholecystectomy Onset Date: ~1966 History of esophagogastroduodenoscopy (EGD) Onset Date: ~09/04/[address] ramirez hiatal hernia, gastritis. Family History: Family History (Updated 12/16/17 @ 11:47 by Felix Serrano CMA) Brother Diabetes Cancer kidney, bladder and prostate. Brother Diabetes Father , age 80 Cancer lung Mother , age 76 Hypertension CVA (cerebral vascular accident) Sister Alive and well Sister Hepatitis C Sister Parkinsons Son Myocardial infarction Son Cancer brain cancer Social History: (Last Reviewed 12/09/18 @ 22:53 by Leeanne Chase RN) Social History: half-way: No Marital status: / lives independently: Yes household members: none number of children: 5 current occupational status: retired Highest education level completed: 10th grade Service: No Tobacco: Smoking Status: Former smoker Alcohol: alcohol intake: former Substance Use: substance use type: does not use Dietary Habits: caffeine: Yes caffeine comment: current every day Physical Exam - Physical Exam General Appearance: Present: wd/wn, alert, no apparent distress, other - Laying in bed nearly flat. She asks me to lay her completely flat due to pain in her back Head Exam: Present: normal inspection, no evidence of injury Eye Exam: Normal inspection: bilateral, PERRL: bilateral, EOMI: bilateral Ears, Nose, Throat: Present: normal ENT inspection, other - Patient does have slightly dry membranes Neck: Present: normal inspection, other - Unable to clinically clear the patient's cervical spine due to limitation with touching her chin to her chest, severe pain. No heat neuro symptoms Respiratory: Present: no respiratory distress, chest nontender, other - Patient with wheezing and rhonchi in both lungs anterior Cardiovascular/Chest: Present: regular rate, rhythm, no murmur Gastrointestinal/Abdominal: Present: normal bowel sounds, nontender, nondistended, soft Back Exam: Present: normal inspection, no CVA tenderness, other - Limited range of motion due to pain. Some mid thoracic and upper thoracic vertebral tenderness Extremity Exam: Present: other - Moves all joints. Uncomfortable to do so. No significant swelling is noted. Neurological Exam: Present: alert, oriented, normal mood/affect, no motor/sensory deficits Skin Exam: Present: normal color, warm/dry Lymphatic Exam: Present: no adenopathy Progress - Results and Orders Patient's Lab Results:: I have reviewed the patient's lab results. - Vital Signs Patient's Vital Signs:: I have reviewed the patient's vital signs. Vital Signs: Vital Signs 12/09/18 22:48 12/09/18 23:20 Temperature 37.1 C Pulse Rate 97 83 Respiratory Rate 12 18 Blood Pressure 173/79 H O2 Sat by Pulse Oximetry 96 98 - EKG EKG #1 EKG read: Interp. by me EKG Comments: This rhythm ventricular rate of 92. Normal axis. Occasional supraventricular PAC. Normal intervals. No ST elevation. T wave flattening. - X-Ray X-Ray #1 X-Ray: chest Interpretation: Interp. by me X-ray Comments: Chest x-ray no acute cardiopulmonary disease X-Ray #2 X-Ray: pelvis Interpretation: Interp. by me - No acute osseous abnormalities - CT/Ultrasound CT/Ultrasound Narrative: CT of the head shows chronic volume loss CT of the cervical spine demonstrates normal CT of the spelt cervical spine CT of the thoracic spine fails to demonstrate any acute fractures. Note is made of an endplate superior on L1 which has an acute 20% fracture. CT of the lumbar spine showed superior endplate of L1 with a 20% acute fracture. - Progress/Reassessment Chief Complaint: Fall Progress:: Unchanged Progress Note-Subjective: 12/10/18 01:03 Still not able to lift up and move down. Plan - Plan Plan: CT of the head and cervical spine seem okay. Waiting for thoracic CT. She is not able to get up and move around. She is can a need to be admitted to the hospital regardless When I evaluated the patient she was complaining of pain more in her thoracic spine and none in her lumbar spine however when she got radiology she was complaining only of lumbar pain. The furniture repair technician called me and I asked her to scan whatever area is tender. Lumbar CT was performed. This shows an endplate fracture at L1 of 20%? Acute versus chronic. When the patient came back I reevaluated her back and now is she is complaining of pain in both her lower thoracic as well as her lumbar spine. Interestingly she is not having pain in the upper thoracic spine. I have sent her back over for a CAT scan of the thoracic spine. She can get up and move around without significant discomfort. She is gotten morphine for pain. She is going to need to be admitted to the hospital regardless Departure Clinical Impression: Compression fracture Fall Qualifiers: Encounter type: initial encounter Qualified Code(s): W19.XXXA - Unspecified fall, initial encounter - Departure Disposition: Still a patient Condition: Stable Referrals: Bryan Mccarty DO [Primary Care Provider] - Critical Care Time - Critical Care Critical Time Spent:: No
[2018-12-09 23:36] LABS: Hematocrit 38.9 % (37.0-47.0); Hemoglobin 12.4 gm/dL (12.5-16.0); Mean Cell Volume 95.6 fl (78-100); Mean Corpuscular Hemoglobin 30.5 pg (27-31); Mean Corpuscular Hgb Conc 31.9 g/dl (32-36); Mean Platelet Volume 9.6 fl (8-12.5); Neutrophil # 9.5 K/mm3 (1.3-6.0); Neutrophil % 84.8 % (42-75.0); Platelet Count 202 K/mm3 (150-450); Red Blood Count 4.07 M/mm3 (4.2-5.4); Red Cell Distribution Width 17.3 % (11.5-14.0); White Blood Count 11.2 K/mm3 (4.0-10.5)
[2018-12-09] MEDS ORDERED: ONDANSETRON HCL/PF 2 MG/ML VIAL IV ONE (23:38)
[2018-12-09 23:56] LABS: ALT 21 U/L (19-67); AST 24 U/L (0-48); Albumin * 3.4 gm/dl (3.4-5.0); Alkaline Phosphatase * 135 U/L (50-170); Anion Gap 14.7 mmol/L (6.8-13.8); BUN/Creatinine Ratio 19.3 (9.0-21.6); Bilirubin, Total 0.8 mg/dL (0.0-1.1); Blood Urea Nitrogen 26 mg/dL (3-23); CK Total * 303 U/L (0-259); Ca. Corrected For Albumin 9.7 mg/dL (8.4-10.2); Calcium * 9.5 mg/dL (7.9-10.9); Chloride 102 mmol/L (97-106); Glucose * 311 mg/dL (70-110); Potassium 3.7 mmol/L (3.4-4.6); Sodium 142 mmol/L (132-142); Total Protein 7.1 gm/dL (6.2-8.2); Troponin I Less than 0.017 ng/mL (0.00-0.10)
[2018-12-10 01:01] LABS: Urine Bilirubin 1 mg/dl (NEGATIVE); Urine Blood 50 /ul (NEGATIVE); Urine Ketone 15 mg/dL (NEGATIVE); Urine Nitrite Negative (NEGATIVE); Urine Protein 30 mg/dL (NEGATIVE); Urine Urobilinogen Normal (NORMAL); Urine pH 5.5 pH (5.0-7.0)
[2018-12-10 01:20] LABS: Urine Appearance Slightly Cloudy (CLEAR); Urine Bacteria 1+; Urine Color Yellow; Urine RBC 0-5 /hpf (0-5); Urine Yeast Many - 3+
[2018-12-10] MEDS ORDERED: MORPHINE SULFATE 4 MG/ML SYRG IV ONE (01:26)
[2018-12-10] MEDS ORDERED: LIDOCAINE HCL 50 ML VIAL IM ONE (03:11)
[2018-12-10] MEDS ORDERED: DEXTROSE 5 % IN WATER 100 ML BAG IV ONE (03:22)
[2018-12-10] MEDS: MORPHINE SULFATE 4 MG/ML SYRG IV PRN ×3 (04:37→15:19)
[2018-12-10] MEDS ORDERED: MELATONIN 3,000 MCG TABLET PO PRN (09:56)
[2018-12-10] MEDS ORDERED: HYDROCODONE PO PRN (09:56)
[2018-12-10] MEDS ORDERED: ACETAMINOPHEN PO PRN (09:56)
[2018-12-10] MEDS: LEVOTHYROXINE SODIUM 50 MCG TABLET PO SCH (10:43)
[2018-12-10] MEDS: ASPIRIN 81 MG TABLET.DR PO SCH (10:43)
[2018-12-10] MEDS: predniSONE 1 MG TABLET PO SCH (10:43)
[2018-12-10] MEDS: FERROUS SULFATE 325 MG TABLET PO SCH (10:43)
[2018-12-10] MEDS: DONEPEZIL HCL 5 MG TABLET PO SCH (10:44)
[2018-12-10] MEDS: FOLIC ACID 1 MG TABLET PO SCH (10:44)
[2018-12-10] MEDS: SERTRALINE HCL 50 MG TABLET PO SCH (10:44)
[2018-12-10] MEDS: FAMOTIDINE 20 MG TABLET PO SCH ×2 (10:44→20:21)
[2018-12-10] MEDS: predniSONE 5 MG TABLET PO SCH (10:45)
[2018-12-10] MEDS: LISINOPRIL 5 MG TABLET PO SCH (10:45)
[2018-12-10] MEDS: METHOTREXATE SODIUM 2.5 MG TABLET PO SCH (10:45)
[2018-12-10] MEDS: HYDROcodone/ACETAMINOPHEN 1 EACH TABLET PO PRN ×2 (10:59→20:20)
--- NOTE | 2018-12-10 11:13 | HP ---
Chief Complaint - Chief Complaint Date of Service: 12/10/18 Time of Service: 10:00 Chief Complaint: Fall and low back pain History of Present Illness: 83-year-old past medical history COPD, CHF, diabetes mellitus type 2, hyperlipidemia, hypothyroidism, low back pain lumbar 83 radiculopathy, obesity, psoriasis, urinary incontinence presents status post fall. She states 2 nights ago she was preparing for bed and went to the bathroom on her way back to her room her left knee gave out on her and she fell to the floor landed on her back and hit her head. She tried to get off the floor but was unable to for about 24 to 36 hours. Finally was able to reach a phone and call her neighbor who called the fire department. She was brought to the hospital. In the ER CT head showed no acute abnormalities. CT scan of her entire spine showed an L1 20% acute fracture. Chest x-ray showed no acute cardiopulmonary disease. She was admitted with an L1 compression fracture for pain management. She does live alone. Medical History (Updated 12/10/18 @ 11:14 by Kiera Palma MD) Low back pain radiating to both legs (Acute) Onset 2 weeks ago. Osteoarthritis of left knee (Chronic) Instability of left knee joint (Chronic) Right flank pain (Acute) R. flank pain radiates into the R. groin. No hx. of kidney stones. No fever or chills.1. UA Herpes zoster (Acute) CHF (congestive heart failure) Asthma COPD (chronic obstructive pulmonary disease) Diabetes mellitus, type II Diarrhea Onset Date: ~01/06/12 Fatigue Hyperlipidemia Hyperthyroidism Lumbar radiculopathy Obesity Pyriformis syndrome right Sciatica Urinary incontinence Blurred vision Emphysema lung Hip pain Ischemic stroke Pneumonia Postmenopausal atrophic vaginitis Onset Date: ~01/12/16 Psoriasis age 17 Rheumatic fever Skin lesion Onset Date: ~10/03/12 left [place] Vaginal pain Onset Date: ~01/12/16 Surgical History: Surgical History (Updated 04/15/18 @ 11:09 by Chacho Allen DO) Cataract Onset Date: ~07/04/07 bilateral, 06/20/07 and 07/04/07 H/O adenoidectomy Onset Date: ~1949 H/O arthroscopic knee surgery left H/O breast surgery left H/O cardiac catheterization Onset Date: ~08/2002 H/O foot surgery left H/O vaginal hysterectomy Onset Date: ~1964 H/O ventral hernia repair Onset Date: ~1998 [place] right lower quad. History of YAG laser capsulotomy of lens Onset Date: ~04/07/10 bilateral, Dr. Hooper 08/15/07 04/07/10 History of appendectomy Onset Date: ~1942 History of tonsillectomy Onset Date: ~1949 Hx of cholecystectomy Onset Date: ~1966 History of esophagogastroduodenoscopy (EGD) Onset Date: ~09/04/[address] ramirez hiatal hernia, gastritis. Family History: Family History (Updated 12/16/17 @ 11:47 by Felix Serrano CMA) Brother Diabetes Cancer kidney, bladder and prostate. Brother Diabetes Father , age 80 Cancer lung Mother , age 76 Hypertension CVA (cerebral vascular accident) Sister Alive and well Sister Hepatitis C Sister Parkinsons Son Myocardial infarction Son Cancer brain cancer Social History: (Last Reviewed 12/09/18 @ 22:53 by Leeanne Chase RN) Social History: mcc: No Marital status: / lives independently: Yes household members: none number of children: 5 current occupational status: retired Highest education level completed: 10th grade Service: No Tobacco: Smoking Status: Former smoker Alcohol: alcohol intake: former Substance Use: substance use type: does not use Dietary Habits: caffeine: Yes caffeine comment: current every day Review Of Systems (GEN) - Review of Systems Generalized/Overall Review: Absent: Chills, Fever Respiratory: Absent: Shortness of Breath Cardiac: Absent: Chest Pain, Edema Abdominal: Present: Abdominal Pain. Absent: Nausea, Vomiting, Diarrhea Musculoskeletal: Present: Back Pain Misc: All systems neg except as marked Immunizations: IMMUNIZATION HX Immunizations Up to Date Yes History of Influenza Vaccine Yes Hx Pneumococcal Vaccination No Allergies/Adverse Reactions: Allergies Allergy/AdvReac Type Severity Reaction Status Date / Time No Known Allergies Allergy Verified 12/10/18 03:54 Home Medications: HOME MEDICATIONS Acetaminophen 325 mg PO Q4H PRN 09/28/17 [Last Taken Unknown] Menthol [Icy Hot] 1 spray TP BID PRN 09/28/17 [Last Taken Unknown] Vit A/Vit C/Vit E/Zinc/Copper [Preservision Areds Softgel] 1 ea PO DAILY 09/28/17 [Last Taken Unknown] blood sugar diagnostic strips See Dose Instructions .ROUTE .MEDSUPPLY #100 ea 01/06/18 [Last Taken Unknown] pen needle, diabetic 32 gauge x 10/05" See Dose Instructions .ROUTE .MEDSUPPLY #100 ea 01/25/18 [Last Taken Unknown] sertraline 50 mg tablet 50 mg PO DAILY #90 tab 09/08/18 [Last Taken Unknown] aspirin 81 mg tablet,delayed release 81 mg PO DAILY #30 tab 10/31/18 [Last Taken Unknown] ferrous sulfate 325 mg (65 mg iron) tablet 325 mg PO DAILY #30 tab 10/31/18 [Last Taken Unknown] omega-3 fatty acids 1,000 mg capsule 1,000 mg PO 1200 #30 cap 10/31/18 [Last Taken Unknown] nitrofurantoin macrocrystal 100 mg capsule See Rx Instructions .ROUTE .COMPLEX #30 capsule 11/15/18 [Last Taken Unknown] hydrocodone 10 mg-acetaminophen 325 mg tablet 1 tab PO QID PRN #60 tab 12/06/18 [Last Taken Unknown] Donepezil HCl 5 mg PO DAILY 12/10/18 [Last Taken Unknown] Folic Acid 1 mg PO DAILY 12/10/18 [Last Taken Unknown] Gabapentin 100 mg PO TID 12/10/18 [Last Taken Unknown] Insulin Glargine,Hum.rec.anlog [Lantus Solostar U-100 Insulin] 24 unit SUBCUT HS 12/10/18 [Last Taken Unknown] Levothyroxine Sodium [Synthroid] 50 mcg PO DAILY 12/10/18 [Last Taken Unknown] Lisinopril 5 mg PO DAILY 12/10/18 [Last Taken Unknown] Melatonin 3 mg PO HS 12/10/18 [Last Taken Unknown] Melatonin 3 mg PO HS PRN 12/10/18 [Last Taken Unknown] Methotrexate Sodium [Methotrexate] 2.5 mg PO DAILY 12/10/18 [Last Taken Unknown] QUEtiapine FUMARATE [Seroquel] 100 mg PO HS 12/10/18 [Last Taken Unknown] Ranitidine HCl [Heartburn Relief] 150 tab PO BID 12/10/18 [Last Taken Unknown] predniSONE [Prednisone] 1 mg PO DAILY 12/10/18 [Last Taken Unknown] predniSONE [Prednisone] 5 mg PO DAILY 12/10/18 [Last Taken Unknown] Exam - Exam Vital Signs: Vital Signs - Last Taken Temp 36.9 C 12/10/18 10:28 Pulse 88 12/10/18 10:45 Resp 12 12/10/18 10:28 BP 143/65 12/10/18 10:45 Pulse Ox 96 12/10/18 10:28 Constitutional: Present: Alert, Cooperative, Well developed, Well nourished, Elderly ENT Exam: Present: hearing grossly normal, moist mucous membranes Eye Exam: bilateral eye: normal inspection, EOMI Neck: Present: non-tender, supple, trachea midline. Absent: lymphadenopathy (R), lymphadenopathy (L) Back Exam: Present: no CVA tenderness, vertebral tenderness - Over lumbar region Respiratory: Present: no respiratory distress, no accessory muscle use, wheezing - Mild, on end expiration throughout all lung bains. Absent: crackles, rhonchi Cardiovascular/Chest: Present: normal peripheral pulses, regular rate, rhythm, no edema, no murmur Peripheral Pulses: dorsalis-pedis (R): 1+, dorsalis-pedis (L): 1+ Abdomen: Present: Normal bowel sounds, soft, tender - Throughout all 4 quadrants Extremity: Present: no pedal edema Skin Exam: Present: warm/dry, other - Multiple bruises noted on bilateral upper extremities and both lower extremities (more on the right leg) Neurologic: Present: alert, normal mood/affect Appearance: Present: appropriate appearance Eye contact: Present: cooperative Thoughts: Present: normal mood /affect Diagnostic Studies: Abnormal Lab Results 12/09/18 12/09/18 12/10/18 Range/Units 23:40 23:40 00:57 WBC 11.2 H (4.0-10.5) K/mm3 RBC 4.07 L (4.2-5.4) M/mm3 Hgb 12.4 L (12.5-16.0) gm/dL MCHC 31.9 L (32-36) g/dl RDW 17.3 H (11.5-14.0) % Immature Gran % (Auto) 1.30 H (0.001-0.429) % Immature Gran # (Auto) 0.15 H (0.000-0.0310) K/mm3 Neutrophils % 84.8 H (42-75.0) % Lymphocytes % 6.5 L (20-51) % Neutrophils # 9.5 H (1.3-6.0) K/mm3 Lymphocytes # 0.73 L (1.5-3.5) k/mm3 Plasma Sodium 145 H (130-142) mmol/L Anion Gap 14.7 H (6.8-13.8) mmol/L BUN 26 H (3-23) mg/dL Est GFR (Non-Af Amer) 40 L (60-130) mL/min Random Glucose 311 H (70-110) mg/dL Creatine Kinase 303 H (0-259) U/L Urine Protein 30 H (NEGATIVE) mg/dL Urine Glucose (UA) >=1000 H (NEGATIVE) mg/dL Urine Blood 50 H (NEGATIVE) /ul Urine Bilirubin 1 H (NEGATIVE) mg/dl Ur Leukocyte Esterase 25 H (NEGATIVE) /ul Urine WBC 5-10 H (0-5) /hpf Urine Bacteria 1+ H (NONE) Urine Yeast Many - 3+ H (NONE) Laboratory Results WBC 11.2 K/mm3 (4.0-10.5) H 12/09/18 23:40 RBC 4.07 M/mm3 (4.2-5.4) L 12/09/18 23:40 Hgb 12.4 gm/dL (12.5-16.0) L 12/09/18 23:40 Hct 38.9 % (37.0-47.0) 12/09/18 23:40 MCV 95.6 fl (78-100) 12/09/18 23:40 MCH 30.5 pg (27-31) 12/09/18 23:40 MCHC 31.9 g/dl (32-36) L 12/09/18 23:40 RDW 17.3 % (11.5-14.0) H 12/09/18 23:40 Plt Count 202 K/mm3 (150-450) 12/09/18 23:40 MPV 9.6 fl (8-12.5) 12/09/18 23:40 Immature Gran % (Auto) 1.30 % (0.001-0.429) H 12/09/18 23:40 Immature Gran # (Auto) 0.15 K/mm3 (0.000-0.0310) H 12/09/18 23:40 84.8 % (42-75.0) H 12/09/18 23:40 6.5 % (20-51) L 12/09/18 23:40 6.7 % (0.0-9) 12/09/18 23:40 0.4 % (0.0-3.0) 12/09/18 23:40 0.3 % (0.0-1.0) 12/09/18 23:40 Nucleated RBC % 0.0 k/mm3 (0-1) 12/09/18 23:40 9.5 K/mm3 (1.3-6.0) H 12/09/18 23:40 0.73 k/mm3 (1.5-3.5) L 12/09/18 23:40 0.8 k/mm3 (0.0-1.0) 12/09/18 23:40 0.0 k/mm3 (0.0-0.7) 12/09/18 23:40 Absolute Basophils 0.0 k/mm3 (0.0-0.1) 12/09/18 23:40 Sodium 142 mmol/L (132-142) 12/09/18 23:40 145 mmol/L (130-142) H 12/09/18 23:40 Potassium 3.7 mmol/L (3.4-4.6) 12/09/18 23:40 Chloride 102 mmol/L (97-106) 12/09/18 23:40 Carbon Dioxide 29.0 mmol/L (24-32.6) 12/09/18 23:40 14.7 mmol/L (6.8-13.8) H 12/09/18 23:40 BUN 26 mg/dL (3-23) H 12/09/18 23:40 1.35 mg/dL (0.4-1.4) 12/09/18 23:40 Est GFR (Non-Af Amer) 40 mL/min (60-130) L 12/09/18 23:40 19.3 (9.0-21.6) 12/09/18 23:40 311 mg/dL (70-110) H 12/09/18 23:40 Calcium 9.5 mg/dL (7.9-10.9) 12/09/18 23:40 Calcium Adj for Albumin 9.7 mg/dL (8.4-10.2) 12/09/18 23:40 0.8 mg/dL (0.0-1.1) 12/09/18 23:40 AST 24 U/L (0-48) 12/09/18 23:40 ALT 21 U/L (19-67) 12/09/18 23:40 135 U/L (50-170) 12/09/18 23:40 303 U/L (0-259) H 12/09/18 23:40 Less than 0.017 ng/mL (0.00-0.10) 12/09/18 23:40 7.1 gm/dL (6.2-8.2) 12/09/18 23:40 3.4 gm/dl (3.4-5.0) 12/09/18 23:40 Yellow 12/10/18 00:57 Slightly cloudy (CLEAR) 12/10/18 00:57 5.5 pH (5.0-7.0) 12/10/18 00:57 Ur Specific [place] 1.020 SP.GR. (1.005-1.010) 12/10/18 00:57 30 mg/dL (NEGATIVE) H 12/10/18 00:57 >=1000 mg/dL (NEGATIVE) H 12/10/18 00:57 15 mg/dL (NEGATIVE) 12/10/18 00:57 50 /ul (NEGATIVE) H 12/10/18 00:57 Negative (NEGATIVE) 12/10/18 00:57 1 mg/dl (NEGATIVE) H 12/10/18 00:57 Negative (NEGATIVE) 12/10/18 00:57 Prot Sulfosalicylic Acd 1+ mg/dL (0) 12/10/18 00:57 Normal EU/dl (NORMAL) 12/10/18 00:57 Ur Leukocyte Esterase 25 /ul (NEGATIVE) H 12/10/18 00:57 0-5 /hpf (0-5) 12/10/18 00:57 5-10 /hpf (0-5) H 12/10/18 00:57 Ur Epithelial Cells 0-5 /hpf (0-5) 12/10/18 00:57 1+ (NONE) H 12/10/18 00:57 Many - 3+ (NONE) H 12/10/18 00:57 Culture to follow 12/10/18 00:57 Assessment/Plan - Narrative Narrative: 83-year-old past medical history COPD, CHF, diabetes mellitus type 2, hyperlipidemia, hypothyroidism, low back pain lumbar 83 radiculopathy, obesity, psoriasis, urinary incontinence presents status post fall. In the ER CT head showed no acute abnormalities. CT scan of her entire spine showed an L1 20% a cute fracture. Chest x-ray showed no acute cardiopulmonary disease. She was admitted with an L1 compression fracture for pain management. She does live alone. - Assessment/Plan (1) Compression fracture Assessment: She has been getting IV morphine for pain. I will try to transition her to oral medications. I have restarted her home dose of hydrocodoneacetaminophen 10-650 mg. Problem: Acute (2) Abdominal pain Assessment: She complains of diffuse abdominal discomfort. She believes it is secondary to her pulling herself across the floor on her stomach when she was trying to get herself up. She denies nausea vomiting or diarrhea this morning. We will cont inue to monitor. Problem: Acute Qualifiers: (3) Fall at home Assessment: Likely mechanical from her left knee giving out on her. Will benefit from an evaluation by physical therapy. She lives at home alone and ambulates with a walker and cane. Problem: Acute (4) Diabetes Assessment: Resume home medications. 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
[2018-12-10] MEDS: GABAPENTIN 100 MG CAPSULE PO SCH ×2 (12:27→17:02)
[2018-12-10] MEDS ORDERED: INSULIN LISPRO 100 UNITS/ML VIAL ONE (17:29)
[2018-12-10] MEDS: INSULIN LISPRO 100 UNITS/ML VIAL SC SCH (17:34)
[2018-12-10] MEDS ORDERED: INSULIN GLARGINE,HUM.REC.ANLOG 100 UNITS/ML VIAL SC SCH (21:00)
[2018-12-10] MEDS ORDERED: QUEtiapine FUMARATE 100 MG TABLET PO SCH (21:00)
[2018-12-11] MEDS: HYDROcodone/ACETAMINOPHEN 1 EACH TABLET PO PRN ×3 (07:15→19:45)
[2018-12-11] MEDS: INSULIN LISPRO 100 UNITS/ML VIAL SC SCH ×3 (07:17→17:01)
[2018-12-11] MEDS: predniSONE 1 MG TABLET PO SCH (08:26)
[2018-12-11] MEDS: SERTRALINE HCL 50 MG TABLET PO SCH (08:26)
[2018-12-11] MEDS: LISINOPRIL 5 MG TABLET PO SCH (08:26)
[2018-12-11] MEDS: LEVOTHYROXINE SODIUM 50 MCG TABLET PO SCH (08:26)
[2018-12-11] MEDS: GABAPENTIN 100 MG CAPSULE PO SCH ×3 (08:26→17:00)
[2018-12-11] MEDS: DONEPEZIL HCL 5 MG TABLET PO SCH (08:26)
[2018-12-11] MEDS: FOLIC ACID 1 MG TABLET PO SCH (08:26)
[2018-12-11] MEDS: FAMOTIDINE 20 MG TABLET PO SCH (08:27)
[2018-12-11] MEDS: predniSONE 5 MG TABLET PO SCH (08:27)
[2018-12-11] MEDS: METHOTREXATE SODIUM 2.5 MG TABLET PO SCH (08:27)
[2018-12-11] MEDS: ASPIRIN 81 MG TABLET.DR PO SCH (08:27)
[2018-12-11] MEDS: FERROUS SULFATE 325 MG TABLET PO SCH (08:27)
--- NOTE | 2018-12-11 18:15 | DS ---
(1) Back pain, acute Problem: Acute Qualifiers: Back pain location: low back pain Back pain laterality: midline Sciatica presence: with sciatica Sciatica laterality: bilateral sciatica Qualified Code(s): M54.42 - Lumbago with sciatica, left side; M54.41 - Lumbago with sciatica, right side (2) Compression fracture Problem: Acute (3) Low back pain radiating to both legs Problem: Acute (4) Pain management Problem: Acute Description of Stay: Christina Elmore is an 83-year-old female who presented to the emergency room with severe incapacitating low back pain. She just could not take care of herself at home because of the pain. She has been diagnosed this past week with a small compression fracture in her low back. I am working on an appointment for her to see Dr. Diaz for a kyphoplasty procedure. She is not used to taking opiates and so I started at a low dose. However, her pain intensified and she was unable to compensate. She was admitted on observation Tuesday. She is received IV opioids since admission and is much more comfortable now. She was walking in the halls at noon hour today. She is walking with a walker and contact-guard assist. Shaina Elmore is confined to home because of severe pain in her back and loss of mobility. She is able to walk with a walker but is not independent at this time. The need for [facility] is for monitoring of healing, diagnosis management education, and monitoring of her medications which are extensive. The need for physical therapy is for pain reduction, increased safety awareness, and improved limb strengthening and mobility. The reason for occupational therapy is improvement of ADLs, improvement and education as to safety awareness, improved range of motion. She does not require speech therapy. The need for home health care skilled services is directly related to the time spent [id number] with the person. Procedures Performed: none Results and Findings: Pending Mircobiology Results 12/10/18 01:21 Urine,Voided Urine Culture - Preliminary No Growth Lab Pending Results 12/09/18 23:40: WBC 11.2 H, RBC 4.07 L, Hgb 12.4 L, Hct 38.9, MCV 95.6, MCH 30.5, MCHC 31.9 L, RDW 17.3 H, Plt Count 202, MPV 9.6, Immature Gran % (Auto) 1.30 H, Immature Gran # (Auto) 0.15 H, Neutrophils % 84.8 H, Lymphocytes % 6.5 L, Monocytes % 6.7, Eosinophils % 0.4, Basophils % 0.3, Nucleated RBC % 0.0, Neutrophils # 9.5 H, Lymphocytes # 0.73 L, Monocytes # 0.8, Eosinophils # 0.0, Absolute Basophils 0.0 12/09/18 23:40: Sodium 142, Plasma Sodium 145 H, Potassium 3.7, Chloride 102, Carbon Dioxide 29.0, Anion Gap 14.7 H, BUN 26 H, Creatinine 1.35, Est GFR (Non- Af Amer) 40 L, BUN/Creatinine Ratio 19.3, Random Glucose 311 H, Calcium 9.5, Calcium Adj for Albumin 9.7, Total Bilirubin 0.8, AST 24, ALT 21, Alkaline Phosphatase 135, Creatine Kinase 303 H, Troponin I Less than 0.017, Total Protein 7.1, Albumin 3.4 12/10/18 00:57: Urine Color Yellow, Urine Appearance Slightly cloudy, Urine pH 5.5, Ur Specific [place] 1.020, Urine Protein 30 H, Urine Glucose (UA) >=1000 H, Urine Ketones 15, Urine Blood 50 H, Urine Nitrate Negative, Urine Bilirubin 1 H, Urine Ictotest Negative, Prot Sulfosalicylic Acd 1+, Urine Urobilinogen Normal, Ur Leukocyte Esterase 25 H, Urine RBC 0-5, Urine WBC 5-10 H, Ur Epithelial Cells 0-5, Urine Bacteria 1+ H, Urine Yeast Many - 3+ H, Urine Culture Comments Culture to follow Discharge Location: Home Disposition: Home Health Service Home Health Agency: [facility] Condition: Stable Face to Face Encounter completed per CMS Guidelines: Yes Discharge Activity: Activity as tolerated Discharge Diet: Consistent carbs Problem Oriented Discharge Instructions to Patient/Family: Spinal Compression Fracture Additional Patient Instructions (free text): Resume services with [facility]. Please call report and fax orders upon discharge. -Please make TCM appointment unless assisted discharge, or if following up with outside provider. Thank you! Nilam @ [phone] or Celina at [phone]. Prescriptions (Any new or edited meds): HYDROcodone/ACETAMINOPHEN [Henderson 10-325 Tablet] 1 tab PO QID PRN #60 tab PRN Reason: pain Complete Home Medications List: Complete Home Medication List: Acetaminophen 325 mg PO Q4H PRN 09/28/17 Menthol [Icy Hot] 1 spray TP BID PRN 09/28/17 Vit A/Vit C/Vit E/Zinc/Copper [Preservision Areds Softgel] 1 ea PO DAILY 09/28/17 blood sugar diagnostic strips See Dose Instructions .ROUTE .MEDSUPPLY #100 ea 01/06/18 pen needle, diabetic 32 gauge x 10/05" See Dose Instructions .ROUTE .MEDSUPPLY #100 ea 01/25/18 sertraline 50 mg tablet 50 mg PO DAILY #90 tab 09/08/18 aspirin 81 mg tablet,delayed release 81 mg PO DAILY #30 tab 10/31/18 ferrous sulfate 325 mg (65 mg iron) tablet 325 mg PO DAILY #30 tab 10/31/18 omega-3 fatty acids 1,000 mg capsule 1,000 mg PO 1200 #30 cap 10/31/18 Donepezil HCl 5 mg PO DAILY 12/10/18 Folic Acid 1 mg PO DAILY 12/10/18 Gabapentin 100 mg PO TID 12/10/18 Insulin Glargine,Hum.rec.anlog [Vinnyagldennis Clifton U-100] 24 unit SUBCUT HS 12/10/18 Levothyroxine Sodium [Synthroid] 50 mcg PO DAILY 12/10/18 Lisinopril 5 mg PO DAILY 12/10/18 Melatonin 3 mg PO HS 12/10/18 Melatonin 3 mg PO HS PRN 12/10/18 Methotrexate Sodium [Methotrexate] 2.5 mg PO DAILY 12/10/18 QUEtiapine FUMARATE [Seroquel] 100 mg PO HS 12/10/18 Ranitidine HCl [Heartburn Relief] 150 tab PO BID 12/10/18 predniSONE [Prednisone] 1 mg PO DAILY 12/10/18 predniSONE [Prednisone] 5 mg PO DAILY 12/10/18 HYDROcodone/ACETAMINOPHEN [Henderson 10-325 Tablet] 1 tab PO QID PRN #60 tab 12/11/18
[2018-12-11 20:07] VITALS: BP 151/41
== END 2018-12-11 19:50 | disposition home health service (06) ==
LOC: MS 22:44 → ER 22:44 → MS 12-10 03:27
PROVIDERS: ADMIT Internal Medicine; ATTEND Family Medicine
DX: E03.9 Hypothyroidism, unspecified; Z79.4 Long term (current) use of insulin; E11.22 Type 2 diabetes mellitus with diabetic chronic kidney disease; I10 Essential (primary) hypertension; W19.XXXA Unspecified fall, initial encounter; M48.54XA Collapsed vertebra, not elsewhere classified, thoracic region, initial encounter for fracture; M54.42 Lumbago with sciatica, left side; N18.3 Chronic kidney disease, stage 3 (moderate)
CPT/HCPCS: 36415; 70450; 71010; 71045; 72125; 72128; 72131; 72170; 80053; 81001; 82550; 84484; 85025; 87086; 93005; 96365; 96372; 96375; 97161; 99285; G0378; J2405; J8610

== ENCOUNTER 2019-04-11 16:05 | Observation (INO) ==
--- NOTE | 2019-04-11 16:29 | ERNOTE ---
Medical Problem HPI - General Chief Complaint: General Assessment Time Seen by Provider: 04/11/19 16:05 Source: patient Exam Limitations: dementia - Immun/Allergies/Home Medications Immunizations: IMMUNIZATION HX Immunizations Up to Date Yes History of Influenza Vaccine Yes Hx Pneumococcal Vaccination Yes Allergies/Adverse Reactions: Allergies No Known Allergies Allergy (Verified 04/09/19 05:30) Home Medications: HOME MEDICATIONS Menthol [Icy Hot] 1 spray TP BID PRN 09/28/17 [Last Taken Unknown] blood sugar diagnostic See Dose Instructions .ROUTE .MEDSUPPLY #100 ea 01/06/18 [Last Taken Unknown] pen needle, diabetic 32 gauge x 10/05" See Dose Instructions .ROUTE .MEDSUPPLY #100 ea 01/25/18 [Last Taken Unknown] Donepezil HCl 10 mg PO HS 12/10/18 [Last Taken Unknown] Insulin Glargine,Hum.rec.anlog [Basaglar Elodia U-100] 24 unit SUBCUT HS 12/10/18 [Last Taken Unknown] Methotrexate Sodium [Methotrexate] 2.5 mg PO TU 12/10/18 [Last Taken Unknown] predniSONE [Prednisone] 5 mg PO DAILY 12/10/18 [Last Taken Unknown] acetaminophen 325 mg tablet 650 mg PO Q4H PRN #100 tab 02/26/19 [Last Taken Unknown] aspirin 81 mg tablet,delayed release See Rx Instructions .ROUTE .COMPLEX #30 tablet 02/26/19 [Last Taken Unknown] gabapentin 100 mg capsule 100 mg PO TID #90 cap 02/26/19 [Last Taken Unknown] levothyroxine 50 mcg tablet 50 mcg PO DAILY #30 tab 02/26/19 [Last Taken Unknown] lisinopril 5 mg tablet 5 mg PO DAILY #30 tab 02/26/19 [Last Taken Unknown] omega-3 fatty acids 1,000 mg capsule 1,000 mg PO 1200 #30 cap 02/26/19 [Last Taken Unknown] quetiapine 100 mg tablet 100 mg PO HS #30 tab 02/26/19 [Last Taken Unknown] ranitidine HCl 150 mg tablet 150 mg PO BID #60 tab 02/26/19 [Last Taken Unknown] sertraline 50 mg tablet 50 mg PO DAILY #30 tab 02/26/19 [Last Taken Unknown] Nitrofurantoin/Nitrofuran Mac [Macrobid] 100 mg PO Q12H #10 cap 04/09/19 [Last Taken Unknown] Dicyclomine HCl [Bentyl] 10 mg PO TID PRN #10 cap 04/10/19 [Last Taken Unknown] Diclofenac Sodium [Diclofenac 1% Topical Gel] 1 appl TOPICAL QID 04/11/19 [Last Taken Unknown] Ferrous Sulfate [Iron] 325 mg PO DAILY 04/11/19 [Last Taken Unknown] HYDROmorphone HCL [Dilaudid] 4 mg PO TID PRN 04/11/19 [Last Taken Unknown] Sennosides [Senna Laxative] 1 tab PO BID PRN 04/11/19 [Last Taken Unknown] - History of Present History Narrative: Patient is her for possible unintentional drug overdose. [facility] reports that when they saw the patient today she had taken all her medications for the day which include dilaudid 4mg tid. Patient was seen in the ER on 03/22 and diagnosed with a compression fracture, had out patient MRI and is scheduled for a kyphoplasty. She was initially started on percocet for the pain, followed up with her PCP and was switched to dilaudid on 03/27. She was seen in the ER two days ago for abdominal pain, had an abdominal CT which showed no acute findings, was discharged home. She returned yesterday for diarrhea, was send home with prescription for bentyl. Concern by home health was that patient was very sedated. According to her chart patient has dementia, is on donzepil, seroquel, lives by herself Review of Systems - Narrative Narrative: limited by patient cooperation - Review of Systems Constitutional: Present: recent illness Respiratory: Absent: shortness of breath Cardiology: Absent: chest pain Neurological: Absent: headache Medical History (Last Reviewed 04/11/19 @ 17:28 by Eva Ball MD) Neuropathic pain of right hand (Chronic) Low back pain radiating to both legs (Acute) Onset 2 weeks ago. Osteoarthritis of left knee (Chronic) Instability of left knee joint (Chronic) Right flank pain (Acute) R. flank pain radiates into the R. groin. No hx. of kidney stones. No fever or chills.1. UA Herpes zoster (Acute) CHF (congestive heart failure) Asthma COPD (chronic obstructive pulmonary disease) Diabetes mellitus, type II Diarrhea Onset Date: ~01/06/12 Fatigue Hyperlipidemia Hyperthyroidism Lumbar radiculopathy Obesity Pyriformis syndrome right Sciatica Urinary incontinence Blurred vision Emphysema lung Hip pain Ischemic stroke Pneumonia Postmenopausal atrophic vaginitis Onset Date: ~01/12/16 Psoriasis age 17 Rheumatic fever Skin lesion Onset Date: ~10/03/12 left congregational Vaginal pain Onset Date: ~01/12/16 Surgical History: Surgical History (Last Reviewed 04/11/19 @ 17:28 by Eva Ball MD) Cataract Onset Date: ~07/04/07 bilateral, 06/20/07 and 07/04/07 H/O adenoidectomy Onset Date: ~1949 H/O arthroscopic knee surgery left H/O breast surgery left H/O cardiac catheterization Onset Date: ~08/2002 H/O foot surgery left H/O vaginal hysterectomy Onset Date: ~1964 H/O ventral hernia repair Onset Date: ~1998 King right lower quad. History of YAG laser capsulotomy of lens Onset Date: ~04/07/10 bilateral, Dr. Hooper 08/15/07 04/07/10 History of appendectomy Onset Date: ~1942 History of tonsillectomy Onset Date: ~1949 Hx of cholecystectomy Onset Date: ~1966 History of esophagogastroduodenoscopy (EGD) Onset Date: ~09/04/[address] ramirez hiatal hernia, gastritis. Family History: Family History (Last Reviewed 04/10/19 @ 05:56 by Jhonny Davenport DO) Brother Diabetes Cancer kidney, bladder and prostate. Brother Diabetes Father , age 80 Cancer lung Mother , age 76 Hypertension CVA (cerebral vascular accident) Sister Alive and well Sister Hepatitis C Sister Parkinsons Son Myocardial infarction Son Cancer brain cancer Social History: (Last Reviewed 04/10/19 @ 05:56 by Jhonny Davenport DO) Social History: jail: No Marital status: / lives independently: Yes household members: none number of children: 5 current occupational status: retired Highest education level completed: 10th grade Service: No Tobacco: Smoking Status: Never smoker Alcohol: alcohol intake: former Substance Use: substance use type: does not use Dietary Habits: caffeine: Yes caffeine comment: current every day Physical Exam - Physical Exam General Appearance: Present: wd/wn, alert, no apparent distress Head Exam: Present: normal inspection, no evidence of injury Eye Exam: Normal inspection: bilateral, PERRL: bilateral, EOMI: bilateral Ears, Nose, Throat: Present: normal ENT inspection Neck: Present: normal inspection, nontender, supple, full range of motion Respiratory: Present: no respiratory distress, normal breath sounds, no accessory muscle use, lungs clear, decreased breath sounds Cardiovascular/Chest: Present: regular rate, rhythm, no murmur Gastrointestinal/Abdominal: Present: normal bowel sounds, nontender, nondistended, soft Neurological Exam: Present: alert, normal mood/affect, disoriented to time, disoriented to situation, other - patient answers some questions and follows some commands Skin Exam: Present: normal color, warm/dry, intertrigo - below both breast and perirectal Progress - Results and Orders Patient's Lab Results:: I have reviewed the patient's lab results. - Vital Signs Patient's Vital Signs:: I have reviewed the patient's vital signs. Vital Signs: Vital Signs 04/11/19 16:13 Temperature 37.3 C Pulse Rate 88 Respiratory Rate 10 L Blood Pressure 113/56 O2 Sat by Pulse Oximetry 93 - EKG EKG #1 EKG: NSR, other - no acute changes EKG read: Interp. by me - Progress/Reassessment Chief Complaint: General Assessment Progress Note-Subjective: 04/11/19 18:05 discussed with donn Summers to admit for observation might need to involve case management as patient might not be safe to be home by herself Departure Clinical Impression: Accidental drug overdose Qualifiers: Encounter type: initial encounter Qualified Code(s): T50.901A - Poisoning by unspecified drugs, medicaments and biological substances, accidental (unintentional), initial encounter - Departure Disposition: Still a patient Condition: Stable Referrals: Bryan Mccarty DO [Primary Care Provider] -
[2019-04-11 16:55] LABS: Hematocrit 35.8 % (37.0-47.0); Mean Cell Volume 92.3 fl (78-100); Mean Corpuscular Hemoglobin 28.4 pg (27-31); Mean Corpuscular Hgb Conc 30.7 g/dl (32-36); Mean Platelet Volume 9.4 fl (8-12.5); Neutrophil # 6.8 K/mm3 (1.3-6.0); Neutrophil % 83.7 % (42-75.0); Platelet Count 241 K/mm3 (150-450); Red Blood Count 3.88 M/mm3 (4.2-5.4); Red Cell Distribution Width 16.5 % (11.5-14.0); White Blood Count 8.1 K/mm3 (4.0-10.5)
[2019-04-11 17:05] LABS: Anion Gap 11.4 mmol/L (6.8-13.8); BUN/Creatinine Ratio 6.2 (9.0-21.6); Bilirubin, Total 0.4 mg/dL (0.0-1.1); Calcium * 8.5 mg/dL (7.9-10.9); Carbon Dioxide 26.6 mmol/L (24-32.6); Total Protein 6.8 gm/dL (6.2-8.2)
[2019-04-11 17:23] LABS: Urine Bilirubin Negative (NEGATIVE); Urine Blood Negative /ul (NEGATIVE); Urine Ketone Negative (NEGATIVE); Urine Nitrite Negative (NEGATIVE); Urine Protein Negative (NEGATIVE); Urine Specific Gravity 1.025 SP.GR. (1.005-1.010); Urine Urobilinogen Normal (NORMAL); Urine pH 5.5 pH (5.0-7.0)
[2019-04-11 17:27] LABS: Urine Appearance Clear (CLEAR); Urine Bacteria 1+; Urine Color Yellow; Urine RBC None Seen /hpf (0-5); Urine WBC 0-5 /hpf (0-5)
[2019-04-11] MEDS ORDERED: NYSTATIN 15 APPL TUBE TP SCH (21:00)
[2019-04-11] MEDS ORDERED: ACETAMINOPHEN 325 MG TABLET PO PRN (21:15)
--- NOTE | 2019-04-11 21:23 | HP ---
Chief Complaint - Chief Complaint Date of Service: 04/11/19 Time of Service: 21:07 Chief Complaint: sedated, accidental OD History of Present Illness: 84-year-old female with history of compression fracture at L1 resented to the ER after being found by home health nurse altered and sedated. Home health nurse checked her medications and found all of her days worth of Dilaudid missing and brought her to the ER. Initially while here patient was sedated but arousable. She is protecting her airway. Patient's vital signs are stable in the ER. Patient currently awaiting kyphoplasty. Due to patient sedation, she was placed in observation to be monitored overnight until the medication was out of her system. Of note patient was found to have an acute kidney injury with her lab work but otherwise most of her results were acceptable. Patient brought to the floor under observation. Medical History (Last Reviewed 04/11/19 @ 20:46 by Kathia Thompson RN) Neuropathic pain of right hand (Chronic) Low back pain radiating to both legs (Acute) Onset 2 weeks ago. Osteoarthritis of left knee (Chronic) Instability of left knee joint (Chronic) Right flank pain (Acute) R. flank pain radiates into the R. groin. No hx. of kidney stones. No fever or chills.1. UA Herpes zoster (Acute) CHF (congestive heart failure) Asthma COPD (chronic obstructive pulmonary disease) Diabetes mellitus, type II Diarrhea Onset Date: ~01/06/12 Fatigue Hyperlipidemia Hyperthyroidism Lumbar radiculopathy Obesity Pyriformis syndrome right Sciatica Urinary incontinence Blurred vision Emphysema lung Hip pain Ischemic stroke Pneumonia Postmenopausal atrophic vaginitis Onset Date: ~01/12/16 Psoriasis age 17 Rheumatic fever Skin lesion Onset Date: ~10/03/12 left zoroastrian Vaginal pain Onset Date: ~01/12/16 Surgical History: Surgical History (Last Reviewed 04/11/19 @ 20:46 by Kathia Thompson RN) Cataract Onset Date: ~07/04/07 bilateral, 06/20/07 and 07/04/07 H/O adenoidectomy Onset Date: ~1949 H/O arthroscopic knee surgery left H/O breast surgery left H/O cardiac catheterization Onset Date: ~08/2002 H/O foot surgery left H/O vaginal hysterectomy Onset Date: ~1964 H/O ventral hernia repair Onset Date: ~1998 [place] right lower quad. History of YAG laser capsulotomy of lens Onset Date: ~04/07/10 bilateral, Dr. Hooper 08/15/07 04/07/10 History of appendectomy Onset Date: ~1942 History of tonsillectomy Onset Date: ~1949 Hx of cholecystectomy Onset Date: ~1966 History of esophagogastroduodenoscopy (EGD) Onset Date: ~09/04/[address] ramirez hiatal hernia, gastritis. Family History: Family History (Last Reviewed 04/11/19 @ 20:46 by Kathia Thompson RN) Brother Diabetes Cancer kidney, bladder and prostate. Brother Diabetes Father , age 80 Cancer lung Mother , age 76 Hypertension CVA (cerebral vascular accident) Sister Alive and well Sister Hepatitis C Sister Parkinsons Son Myocardial infarction Son Cancer brain cancer Social History: (Last Reviewed 04/11/19 @ 20:46 by Kathia Thompson RN) Social History: fpc: No Marital status: / lives independently: Yes household members: none number of children: 5 current occupational status: retired Highest education level completed: 10th grade Service: No Tobacco: Smoking Status: Never smoker Alcohol: alcohol intake: former Substance Use: substance use type: does not use Dietary Habits: caffeine: Yes caffeine comment: current every day Review Of Systems (GEN) - Review of Systems Generalized/Overall Review: Present: No Symptoms Reported EENTM: Present: No Symptoms Reported Respiratory: Present: No Symptoms Reported Cardiac: Present: No Symptoms Reported Abdominal: Present: No Symptoms Reported Genitourinary: Present: No Symptoms Reported Musculoskeletal: Present: Back Pain Neurological: Present: Headache Immunizations: IMMUNIZATION HX Immunizations Up to Date Yes History of Influenza Vaccine Yes Hx Pneumococcal Vaccination Yes Allergies/Adverse Reactions: Allergies Allergy/AdvReac Type Severity Reaction Status Date / Time No Known Allergies Allergy Verified 04/09/19 05:30 Home Medications: HOME MEDICATIONS Menthol [Icy Hot] 1 spray TP BID PRN 09/28/17 [Last Taken Unknown] blood sugar diagnostic See Dose Instructions .ROUTE .MEDSUPPLY #100 ea 01/06/18 [Last Taken Unknown] pen needle, diabetic 32 gauge x 5/16" See Dose Instructions .ROUTE .MEDSUPPLY #100 ea 01/25/18 [Last Taken Unknown] Donepezil HCl 10 mg PO HS 12/10/18 [Last Taken Unknown] Insulin Glargine,Hum.rec.anlog [Sriram Clifton U-100] 24 unit SUBCUT HS 12/10/18 [Last Taken Unknown] Methotrexate Sodium [Methotrexate] 2.5 mg PO TU 12/10/18 [Last Taken Unknown] predniSONE [Prednisone] 5 mg PO DAILY 12/10/18 [Last Taken Unknown] acetaminophen 325 mg tablet 650 mg PO Q4H PRN #100 tab 02/26/19 [Last Taken Unknown] aspirin 81 mg tablet,delayed release See Rx Instructions .ROUTE .COMPLEX #30 tablet 02/26/19 [Last Taken Unknown] gabapentin 100 mg capsule 100 mg PO TID #90 cap 02/26/19 [Last Taken Unknown] levothyroxine 50 mcg tablet 50 mcg PO DAILY #30 tab 02/26/19 [Last Taken Unknown] lisinopril 5 mg tablet 5 mg PO DAILY #30 tab 02/26/19 [Last Taken Unknown] omega-3 fatty acids 1,000 mg capsule 1,000 mg PO 1200 #30 cap 02/26/19 [Last Taken Unknown] quetiapine 100 mg tablet 100 mg PO HS #30 tab 02/26/19 [Last Taken Unknown] ranitidine HCl 150 mg tablet 150 mg PO BID #60 tab 02/26/19 [Last Taken Unknown] sertraline 50 mg tablet 50 mg PO DAILY #30 tab 02/26/19 [Last Taken Unknown] Nitrofurantoin/Nitrofuran Mac [Macrobid] 100 mg PO Q12H #10 cap 04/09/19 [Last Taken Unknown] Dicyclomine HCl [Bentyl] 10 mg PO TID PRN #10 cap 04/10/19 [Last Taken Unknown] Diclofenac Sodium [Diclofenac 1% Topical Gel] 1 appl TOPICAL QID 04/11/19 [Last Taken Unknown] Ferrous Sulfate [Iron] 325 mg PO DAILY 04/11/19 [Last Taken Unknown] HYDROmorphone HCL [Dilaudid] 4 mg PO TID PRN 04/11/19 [Last Taken Unknown] Sennosides [Senna Laxative] 1 tab PO BID PRN 04/11/19 [Last Taken Unknown] Exam - Exam Vital Signs: Vital Signs - Last Taken Temp 36.6 C 04/11/19 18:59 Pulse 86 04/11/19 18:59 Resp 14 04/11/19 18:59 BP 135/81 04/11/19 18:59 Pulse Ox 100 04/11/19 18:59 Constitutional: Present: Alert, Cooperative, No distress, Elderly. Absent: Oriented x3 - Oriented x2, Somnolent Eye Exam: bilateral eye: normal inspection, PERRL - Pupils slightly constricted bilaterally, EOMI Respiratory: Present: lungs clear, normal breath sounds Cardiovascular/Chest: Present: regular rate, rhythm, no edema Abdomen: Present: Normal bowel sounds, soft, nontender Skin Exam: Present: normal color, warm/dry Appearance: Present: appropriate appearance, impaired recent memory Eye contact: Present: cooperative, good eye contact Thoughts: Present: normal mood /affect Diagnostic Studies: Abnormal Lab Results 04/11/19 04/11/19 04/11/19 Range/Units 16:45 16:45 17:14 RBC 3.88 L (4.2-5.4) M/mm3 Hgb 11.0 L (12.5-16.0) gm/dL Hct 35.8 L (37.0-47.0) % MCHC 30.7 L (32-36) g/dl RDW 16.5 H (11.5-14.0) % Immature Gran % (Auto) 0.60 H (0.001-0.429) % Immature Gran # (Auto) 0.05 H (0.000-0.0310) K/mm3 Neutrophils % 83.7 H (42-75.0) % Lymphocytes % 6.2 L (20-51) % Neutrophils # 6.8 H (1.3-6.0) K/mm3 Lymphocytes # 0.50 L (1.5-3.5) k/mm3 Creatinine 1.77 H D (0.4-1.4) mg/dL Est GFR (Non-Af Amer) 29 L D (60-130) mL/min BUN/Creatinine Ratio 6.2 L (9.0-21.6) Random Glucose 254 H (70-110) mg/dL ALT 11 L (19-67) U/L Albumin 3.0 L (3.4-5.0) gm/dl Urine Glucose (UA) 250 H (NEGATIVE) mg/dL Ur Leukocyte Esterase 25 H (NEGATIVE) /ul Urine Bacteria 1+ H (NONE) Laboratory Results WBC 8.1 K/mm3 (4.0-10.5) 04/11/19 16:45 RBC 3.88 M/mm3 (4.2-5.4) L 04/11/19 16:45 Hgb 11.0 gm/dL (12.5-16.0) L 04/11/19 16:45 Hct 35.8 % (37.0-47.0) L 04/11/19 16:45 MCV 92.3 fl (78-100) 04/11/19 16:45 MCH 28.4 pg (27-31) 04/11/19 16:45 MCHC 30.7 g/dl (32-36) L 04/11/19 16:45 RDW 16.5 % (11.5-14.0) H 04/11/19 16:45 Plt Count 241 K/mm3 (150-450) 04/11/19 16:45 MPV 9.4 fl (8-12.5) 04/11/19 16:45 Immature Gran % (Auto) 0.60 % (0.001-0.429) H 04/11/19 16:45 Immature Gran # (Auto) 0.05 K/mm3 (0.000-0.0310) H 04/11/19 16:45 Neutrophils % 83.7 % (42-75.0) H 04/11/19 16:45 Lymphocytes % 6.2 % (20-51) L 04/11/19 16:45 Monocytes % 7.6 % (0.0-9) 04/11/19 16:45 Eosinophils % 1.5 % (0.0-3.0) 04/11/19 16:45 Basophils % 0.4 % (0.0-1.0) 04/11/19 16:45 Nucleated RBC % 0.0 k/mm3 (0-1) 04/11/19 16:45 Neutrophils # 6.8 K/mm3 (1.3-6.0) H 04/11/19 16:45 Lymphocytes # 0.50 k/mm3 (1.5-3.5) L 04/11/19 16:45 Monocytes # 0.6 k/mm3 (0.0-1.0) 04/11/19 16:45 Eosinophils # 0.1 k/mm3 (0.0-0.7) 04/11/19 16:45 Absolute Basophils 0.0 k/mm3 (0.0-0.1) 04/11/19 16:45 Sodium 137 mmol/L (132-142) 04/11/19 16:45 Plasma Sodium 139 mmol/L (130-142) 04/11/19 16:45 Potassium 4.0 mmol/L (3.4-4.6) 04/11/19 16:45 Chloride 103 mmol/L (97-106) 04/11/19 16:45 Carbon Dioxide 26.6 mmol/L (24-32.6) 04/11/19 16:45 Anion Gap 11.4 mmol/L (6.8-13.8) 04/11/19 16:45 BUN 11 mg/dL (3-23) 04/11/19 16:45 Creatinine 1.77 mg/dL (0.4-1.4) H D 04/11/19 16:45 Est GFR (Non-Af Amer) 29 mL/min (60-130) L D 04/11/19 16:45 BUN/Creatinine Ratio 6.2 (9.0-21.6) L 04/11/19 16:45 Random Glucose 254 mg/dL (70-110) H 04/11/19 16:45 Calcium 8.5 mg/dL (7.9-10.9) 04/11/19 16:45 Calcium Adj for Albumin 9.0 mg/dL (8.4-10.2) 04/11/19 16:45 Total Bilirubin 0.4 mg/dL (0.0-1.1) 04/11/19 16:45 AST 13 U/L (0-48) 04/11/19 16:45 ALT 11 U/L (19-67) L 04/11/19 16:45 Alkaline Phosphatase 127 U/L (50-170) 04/11/19 16:45 Total Protein 6.8 gm/dL (6.2-8.2) 04/11/19 16:45 Albumin 3.0 gm/dl (3.4-5.0) L 04/11/19 16:45 Urine Color Yellow 04/11/19 17:14 Urine Appearance Clear (CLEAR) 04/11/19 17:14 Urine pH 5.5 pH (5.0-7.0) 04/11/19 17:14 Ur Specific [place] 1.025 SP.GR. (1.005-1.010) 04/11/19 17:14 Urine Protein Negative mg/dL (NEGATIVE) 04/11/19 17:14 Urine Glucose (UA) 250 mg/dL (NEGATIVE) H 04/11/19 17:14 Urine Ketones Negative mg/dL (NEGATIVE) 04/11/19 17:14 Urine Blood Negative /ul (NEGATIVE) 04/11/19 17:14 Urine Nitrate Negative (NEGATIVE) 04/11/19 17:14 Urine Bilirubin Negative mg/dl (NEGATIVE) 04/11/19 17:14 Urine Urobilinogen Normal EU/dl (NORMAL) 04/11/19 17:14 Ur Leukocyte Esterase 25 /ul (NEGATIVE) H 04/11/19 17:14 Urine RBC None seen /hpf (0-5) 04/11/19 17:14 Urine WBC 0-5 /hpf (0-5) 04/11/19 17:14 Ur Epithelial Cells 0-5 /hpf (0-5) 04/11/19 17:14 Urine Bacteria 1+ (NONE) H 04/11/19 17:14 Urine Culture Comments Culture to follow 04/11/19 17:14 Assessment/Plan - Narrative Narrative: 84-year-old female placed in observation for accidental drug overdose. Currently holding all sedating medications. Patient pleasant and appropriate. We will start her on some normal saline and repeat BMP in the morning to monitor kidney function. Baseline GFR is close to 60, hers is currently 29. Moderate sliding scale insulin ordered with a [facility] Accu-Cheks. This is a carb diet ordered. Vital signs every 4 hours. No DVT prophylaxis at this time as patient will likely be here for 24 hours or less. Nurse will call with questions or concerns. - Assessment/Plan (1) Accidental drug overdose Problem: Acute Qualifiers: Encounter type: initial encounter Qualified Code(s): T50.901A - Poisoning by unspecified drugs, medicaments and biological substances, accidental (unintentional), initial encounter (2) Acute kidney injury Problem: Acute (3) Compression fracture Problem: Acute (4) Pain management Problem: Acute (5) Insulin dependent diabetes mellitus Problem: Acute
[2019-04-11] MEDS: NORMAL SALINE 1,000 ML IV SCH (22:36)
[2019-04-12] MEDS: NORMAL SALINE 1,000 ML IV SCH (06:37)
[2019-04-12] MEDS ORDERED: LEVOTHYROXINE SODIUM 50 MCG TABLET PO SCH (07:00)
[2019-04-12] MEDS: INSULIN LISPRO 100 UNITS/ML VIAL SC SCH ×2 (07:19→11:56)
[2019-04-12 08:30] LABS: Hematocrit 35.5 % (37.0-47.0); Hemoglobin 11.1 gm/dL (12.5-16.0); Mean Cell Volume 92.4 fl (78-100); Mean Corpuscular Hemoglobin 28.9 pg (27-31); Mean Corpuscular Hgb Conc 31.3 g/dl (32-36); Mean Platelet Volume 9.3 fl (8-12.5); Neutrophil # 6.7 K/mm3 (1.3-6.0); Neutrophil % 81.4 % (42-75.0); Platelet Count 248 K/mm3 (150-450); Red Blood Count 3.84 M/mm3 (4.2-5.4); Red Cell Distribution Width 16.6 % (11.5-14.0); White Blood Count 8.2 K/mm3 (4.0-10.5)
[2019-04-12 08:40] LABS: Albumin * 2.6 gm/dl (3.4-5.0); Anion Gap 10.6 mmol/L (6.8-13.8); BUN/Creatinine Ratio 9.7 (9.0-21.6); Bilirubin, Total 0.4 mg/dL (0.0-1.1); Ca. Corrected For Albumin 8.9 mg/dL (8.4-10.2); Calcium * 8.1 mg/dL (7.9-10.9); Carbon Dioxide 23.7 mmol/L (24-32.6); Potassium 3.3 mmol/L (3.4-4.6); Total Protein 6.3 gm/dL (6.2-8.2)
[2019-04-12] MEDS ORDERED: predniSONE 1 MG TABLET PO SCH (09:00)
[2019-04-12] MEDS ORDERED: NYSTATIN 30 APPL TUBE TP SCH (09:00)
[2019-04-12] MEDS ORDERED: SERTRALINE HCL 50 MG TABLET PO SCH (09:00)
[2019-04-12] MEDS ORDERED: NITROFURANTOIN/NITROFURAN MAC 100 MG CAPSULE PO SCH (09:00)
[2019-04-12] MEDS ORDERED: predniSONE 5 MG TABLET PO SCH (09:00)
[2019-04-12] MEDS ORDERED: LISINOPRIL 5 MG TABLET PO SCH (09:00)
[2019-04-12] MEDS ORDERED: FAMOTIDINE 20 MG TABLET PO SCH (09:00)
[2019-04-12] MEDS ORDERED: ASPIRIN 81 MG TABLET.DR PO SCH (09:00)
[2019-04-12] MEDS: GABAPENTIN 100 MG CAPSULE PO SCH ×2 (09:41→12:47)
--- NOTE | 2019-04-12 14:22 | DS ---
Date of Discharge:: 04/12/19 Description of Stay: Christina Elmore is an 84-year-old female well-known to me who overdosed on Dilaudid taking 3 4 mg tablets all at once. She became very hypersomnolent and arousable. She was brought to the hospital and admitted through ER for accidental drug overdose. Dr. Gage was instructional technology instructor and admitted her last evening. This morning she is fully awake and lucid and not having any complaints. She has home health who helps set up her medications but apparently there was a mistake last evening. She is back to her baseline. She can be discharged back to her home. Procedures Performed: none Results and Findings: Pending Mircobiology Results 04/11/19 17:14 Urine,Catheterized Urine Culture - Preliminary No Growth Lab Pending Results 04/11/19 16:45: WBC 8.1, RBC 3.88 L, Hgb 11.0 L, Hct 35.8 L, MCV 92.3, MCH 28.4, MCHC 30.7 L, RDW 16.5 H, Plt Count 241, MPV 9.4, Immature Gran % (Auto) 0.60 H, Immature Gran # (Auto) 0.05 H, Neutrophils % 83.7 H, Lymphocytes % 6.2 L, Monocytes % 7.6, Eosinophils % 1.5, Basophils % 0.4, Nucleated RBC % 0.0, Neutrophils # 6.8 H, Lymphocytes # 0.50 L, Monocytes # 0.6, Eosinophils # 0.1, Absolute Basophils 0.0 04/11/19 16:45: Sodium 137, Plasma Sodium 139, Potassium 4.0, Chloride 103, Carbon Dioxide 26.6, Anion Gap 11.4, BUN 11, Creatinine 1.77 H D, Est GFR (Non- Af Amer) 29 L D, BUN/Creatinine Ratio 6.2 L, Random Glucose 254 H, Calcium 8.5, Calcium Adj for Albumin 9.0, Total Bilirubin 0.4, AST 13, ALT 11 L, Alkaline Phosphatase 127, Total Protein 6.8, Albumin 3.0 L 04/11/19 17:14: Urine Color Yellow, Urine Appearance Clear, Urine pH 5.5, Ur Specific [place] 1.025, Urine Protein Negative, Urine Glucose (UA) 250 H, Urine Ketones Negative, Urine Blood Negative, Urine Nitrate Negative, Urine Bilirubin Negative, Urine Urobilinogen Normal, Ur Leukocyte Esterase 25 H, Urine RBC None seen, Urine WBC 0-5, Ur Epithelial Cells 0-5, Urine Bacteria 1+ H, Urine Culture Comments Culture to follow 04/12/19 08:25: WBC 8.2, RBC 3.84 L, Hgb 11.1 L, Hct 35.5 L, MCV 92.4, MCH 28.9, MCHC 31.3 L, RDW 16.6 H, Plt Count 248, MPV 9.3, Immature Gran % (Auto) 0.60 H, Immature Gran # (Auto) 0.05 H, Neutrophils % 81.4 H, Lymphocytes % 8.3 L, Monocytes % 5.7, Eosinophils % 3.6 H, Basophils % 0.4, Nucleated RBC % 0.0, Neutrophils # 6.7 H, Lymphocytes # 0.68 L, Monocytes # 0.5, Eosinophils # 0.3, Absolute Basophils 0.0 04/12/19 08:25: Sodium 133, Plasma Sodium 135, Potassium 3.3 L, Chloride 102, Carbon Dioxide 23.7 L, Anion Gap 10.6, BUN 15, Creatinine 1.54 H, Est GFR (Non- Af Amer) 34 L, BUN/Creatinine Ratio 9.7, Random Glucose 199 H, Calcium 8.1, Calcium Adj for Albumin 8.9, Total Bilirubin 0.4, AST 23, ALT 12 L, Alkaline Phosphatase 128, Total Protein 6.3, Albumin 2.6 L Discharge Location: Home Disposition: Home Health Service Home Health Agency: [facility] Condition: Stable Discharge Activity: Activity as tolerated Discharge Diet: General/regular food Referrals: Bryan Mccarty DO [Primary Care Provider] - Additional Patient Instructions (free text): Has [facility] ongoing, please call report and fax discharge information to them. See Dr. Mccarty in 2 weeks in his office. Complete Home Medications List: Complete Home Medication List: Menthol [Icy Hot] 1 spray TP BID PRN 09/28/17 blood sugar diagnostic See Dose Instructions .ROUTE .MEDSUPPLY #100 ea 01/06/18 pen needle, diabetic 32 gauge x 5/16" See Dose Instructions .ROUTE .MEDSUPPLY #100 ea 01/25/18 Donepezil HCl 10 mg PO HS 12/10/18 Insulin Glargine,Hum.rec.anlog [Sriram Clifton U-100] 24 unit SUBCUT HS 12/10/18 Methotrexate Sodium [Methotrexate] 2.5 mg PO TU 12/10/18 predniSONE [Prednisone] 5 mg PO DAILY 12/10/18 acetaminophen 325 mg tablet 650 mg PO Q4H PRN #100 tab 02/26/19 aspirin 81 mg tablet,delayed release See Rx Instructions .ROUTE .COMPLEX #30 tablet 02/26/19 gabapentin 100 mg capsule 100 mg PO TID #90 cap 02/26/19 levothyroxine 50 mcg tablet 50 mcg PO DAILY #30 tab 02/26/19 lisinopril 5 mg tablet 5 mg PO DAILY #30 tab 02/26/19 omega-3 fatty acids 1,000 mg capsule 1,000 mg PO 1200 #30 cap 02/26/19 quetiapine 100 mg tablet 100 mg PO HS #30 tab 02/26/19 ranitidine HCl 150 mg tablet 150 mg PO BID #60 tab 02/26/19 sertraline 50 mg tablet 50 mg PO DAILY #30 tab 02/26/19 Nitrofurantoin/Nitrofuran Mac [Macrobid] 100 mg PO Q12H #10 cap 04/09/19 Dicyclomine HCl [Bentyl] 10 mg PO TID PRN #10 cap 04/10/19 Diclofenac Sodium [Diclofenac 1% Topical Gel] 1 appl TOPICAL QID 04/11/19 Ferrous Sulfate [Iron] 325 mg PO DAILY 04/11/19 HYDROmorphone HCL [Dilaudid] 4 mg PO TID PRN 04/11/19 Sennosides [Senna Laxative] 1 tab PO BID PRN 04/11/19 Nystatin [Mycostatin Powder] 1 appl TOPICAL BID #1 btl 04/12/19
[2019-04-12 15:54] VITALS: BP 180/67
[2019-04-12] MEDS ORDERED: NYSTATIN 15 APPL BTL TP SCH (21:00)
[2019-04-12] MEDS ORDERED: INSULIN GLARGINE,HUM.REC.ANLOG 100 UNITS/ML VIAL SC SCH (21:00)
== END 2019-04-12 16:06 | disposition home health service (06) ==
LOC: ER 16:05 → MS 16:05
PROVIDERS: ADMIT Family Medicine; ATTEND Family Medicine
CPT/HCPCS: 36415; 80053; 81001; 85025; 87086; 93005; 96372; 99285; G0378

== ENCOUNTER 2020-03-30 13:02 | Inpatient (IN) ==
[2020-03-30] MEDS ORDERED: ALBUTEROL SULFATE/IPRATROPIUM 3 ML NEBU IH ONE (13:27)
[2020-03-30 13:34] LABS: Hematocrit 34.3 % (37.0-47.0); Hemoglobin 10.9 gm/dL (12.5-16.0); Mean Cell Volume 91.2 fl (78-100); Mean Corpuscular Hgb Conc 31.8 g/dl (32-36); Mean Platelet Volume 9.4 fl (8-12.5); Neutrophil % 78.8 % (42-75.0); Platelet Count 195 K/mm3 (150-450); Red Blood Count 3.76 M/mm3 (4.2-5.4); Red Cell Distribution Width 17.4 % (11.5-14.0); White Blood Count 6.3 K/mm3 (4.0-10.5)
[2020-03-30 13:51] LABS: Troponin I Less than 0.017 ng/mL (0.00-0.10)
[2020-03-30 13:57] LABS: ALT 23 U/L (19-67); AST 25 U/L (0-48); Albumin * 2.9 gm/dl (3.4-5.0); Alkaline Phosphatase * 130 U/L (50-170); Anion Gap 13.7 mmol/L (6.8-13.8); BNP * 4763 pg/mL (5-550); BUN/Creatinine Ratio 25.9 (9.0-21.6); Bilirubin, Total 0.4 mg/dL (0.0-1.1); Blood Urea Nitrogen 28 mg/dL (3-23); Ca. Corrected For Albumin 9.6 mg/dL (8.4-10.2); Carbon Dioxide 25.9 mmol/L (24-32.6); Chloride 100 mmol/L (97-106); Glucose * 151 mg/dL (70-110); Potassium 3.6 mmol/L (3.4-4.6); Sodium 136 mmol/L (132-142)
[2020-03-30] MEDS ORDERED: FUROSEMIDE 10 MG/ML VIAL IV ONE (14:02)
[2020-03-30] MEDS ORDERED: DEXAMETHASONE SODIUM PHOSP/PF 10 MG/ML VIAL IV ONE (15:24)
--- NOTE | 2020-03-30 15:50 | ERNOTE ---
Dyspnea - Date Date of Service: 03/30/20 - General Presenting Symptoms: shortness of breath Time Seen by Provider: 03/30/20 13:10 Source: patient Exam Limitations: no limitations - Immun/Allergies/Home Medications Immunizations: IMMUNIZATION HX Immunizations Up to Date Yes History of Influenza Vaccine Yes Hx Pneumococcal Vaccination Yes Allergies/Adverse Reactions: Allergies No Known Allergies Allergy (Verified 01/07/20 13:46) Home Medications: HOME MEDICATIONS Menthol [Icy Hot] 1 spray TP BID PRN 09/28/17 [Last Taken Unknown] pen needle, diabetic 32 gauge x 10/05" See Dose Instructions .ROUTE .MEDSUPPLY #100 ea 01/25/18 [Last Taken Unknown] acetaminophen 325 mg tablet 650 mg PO Q4H PRN #100 tab 02/26/19 [Last Taken Unknown] Sennosides [Senna Laxative] 1 tab PO BID PRN 04/11/19 [Last Taken Unknown] nystatin 100,000 unit/gram topical powder 1 applic TOPICAL BID #30 g 04/12/19 [Last Taken Unknown] blood sugar diagnostic See Rx Instructions .ROUTE .COMPLEX #100 strip 06/15/19 [Last Taken Unknown] aspirin 81 mg tablet,delayed release See Rx Instructions .ROUTE .COMPLEX #30 tab 06/20/19 [Last Taken Unknown] ferrous sulfate 325 mg (65 mg iron) tablet 325 mg PO DAILY #30 tab 06/20/19 [Last Taken Unknown] melatonin 3 mg tablet 5 mg PO HS #30 tab 06/20/19 [Last Taken Unknown] omega-3 fatty acids 1,000 mg capsule 1,000 mg PO 1200 #30 cap 06/20/19 [Last Taken Unknown] vit A,C and [id number] 1,000 unit-C 200 mg-E 60 unit-lutein 2 mg and minerals tablet 1 tab PO BID #60 tab 06/20/19 [Last Taken Unknown] amlodipine 10 mg tablet 10 mg PO DAILY #30 tab 06/22/19 [Last Taken Unknown] albuterol sulfate 90 mcg/actuation aerosol inhaler 1 puff IH QID PRN #18 g 07/26/19 [Last Taken Unknown] insulin glargine 100 unit/mL (3 mL) subcutaneous pen 24 unit SUBCUT HS #15 ml MDD 24 units 09/13/19 [Last Taken Unknown] dorzolamide 22.3 mg-timolol 6.8 mg/mL eye drops 1 drp OP BID ml 09/19/19 [Last Taken Unknown] methotrexate sodium 2.5 mg tablet 12.5 mg PO QWEEK #20 tab 09/21/19 [Last Taken Unknown] folic acid 1 mg tablet See Rx Instructions .ROUTE .COMPLEX #30 unknown measurement unit code: tablet 12/19/19 [Last Taken Unknown] levothyroxine 75 mcg tablet See Rx Instructions .ROUTE .COMPLEX #30 unknown measurement unit code: tablet 12/19/19 [Last Taken Unknown] pantoprazole 20 mg tablet,delayed release See Rx Instructions .ROUTE .COMPLEX #60 unknown measurement unit code: tablet 12/19/19 [Last Taken Unknown] quetiapine 100 mg tablet See Rx Instructions .ROUTE .COMPLEX #30 unknown measurement unit code: tablet 12/19/19 [Last Taken Unknown] sertraline 50 mg tablet See Rx Instructions .ROUTE .COMPLEX #30 unknown measurement unit code: tablet 12/19/19 [Last Taken Unknown] donepezil 10 mg tablet 10 mg PO DAILY #30 tab 12/26/19 [Last Taken Unknown] Nitrofurantoin/Nitrofuran Mac [Macrobid] 100 mg PO Q12H #20 cap 01/03/20 [Last Taken Unknown] calcium carbonate 600 mg (1,500 mg)-vitamin D3 400 unit tablet 1 tab PO BID #0.1 tab 01/17/20 [Last Taken Unknown] gabapentin 100 mg capsule See Rx Instructions .ROUTE .COMPLEX #90 unknown measurement unit code: capsule 01/21/20 [Last Taken Unknown] sulfamethoxazole 800 mg-trimethoprim 160 mg tablet 1 tab PO BID #14 tab 02/15/20 [Last Taken Unknown] prednisone 1 mg tablet 2 mg PO DAILY #90 tab 03/05/20 [Last Taken Unknown] tramadol 50 mg tablet 50 mg PO TID #90 tab 03/19/20 [Last Taken Unknown] cetirizine 10 mg tablet 10 mg PO DAILY #30 tab 03/20/20 [Last Taken Unknown] ipratropium bromide 42 mcg (0.06 %) nasal spray 2 spray MOOKIE QID #15 ml 03/25/20 [Last Taken Unknown] - History of Present Illness Narrative: Patient presents to the ED via EMS for SOB. She apparently has been more weak and coughing with SOB but an exact date of onset is difficult to discern. [facility] home health went out to see her and thought she was doing poorly so EMS called and she arrives by ambulance. She feels like she hurts all over but no specific localizing pain. No CP. Cough and SOB. She apparently had a fall but did not hit her head and did not sustain any specific injury. Severity: moderate Treatment HEART COORDINATOR: paramedics Initiating event: Reports: unknown Modifying Factors - (Improves): Reports: nothing Modifying Factors (Worsens): Reports: nothing Associated Symptoms-Dyspnea: Reports: fever/chills, cough, wheezing, weakness Prior Treatment: Denies: currently on antibiotics Review of Systems - Review of Systems Constitutional: Present: chills EYE: Present: no symptoms reported ENT: Absent: sore throat Respiratory: Present: cough Cardiology: Absent: chest pain Gastrointestinal/Abdominal: Present: vomiting, diarrhea. Absent: abdominal pain Genitourinary: Absent: dysuria Musculoskeletal: Present: other - no specific pain from her fall Neurological: Present: other - generalized wakness, no focal weakness All Other Systems: All systems neg except as marked Medical History (Last Reviewed 03/30/20 @ 15:45 by Valente Schofield MD) Chronic pain (Chronic) Elevated sed rate (Chronic) Polyarthralgia (Chronic) Low back pain (Chronic) Insomnia (Acute) GERD (gastroesophageal reflux disease) (Chronic) Healing pressure ulcer, stage III (Resolved) Healing pressure ulcer stage III (Acute) L. heal Intractable back pain (Acute) Neuropathic pain of right hand (Chronic) Low back pain radiating to both legs (Acute) Onset 2 weeks ago. Osteoarthritis of left knee (Chronic) Instability of left knee joint (Chronic) Right flank pain (Acute) R. flank pain radiates into the R. groin. No hx. of kidney stones. No fever or chills.1. UA Herpes zoster (Acute) Generalized weakness (Acute) Neck pain (Acute) CHF (congestive heart failure) Asthma COPD (chronic obstructive pulmonary disease) Diabetes mellitus, type II Diarrhea Onset Date: ~01/06/12 Fatigue Hyperlipidemia Hyperthyroidism Lumbar radiculopathy Obesity Pyriformis syndrome right Sciatica Urinary incontinence Blurred vision Emphysema lung Hip pain Ischemic stroke Pneumonia Postmenopausal atrophic vaginitis Onset Date: ~01/12/16 Psoriasis age 17 Rheumatic fever Skin lesion Onset Date: ~10/03/12 left latter-day Vaginal pain Onset Date: ~01/12/16 Surgical History: Surgical History (Last Reviewed 03/30/20 @ 15:46 by Valente Schofield MD) History of back surgery Onset Date: ~04/16/19 [facility] Cataract Onset Date: ~07/04/07 bilateral, 06/20/07 and 07/04/07 H/O adenoidectomy Onset Date: ~1949 H/O arthroscopic knee surgery left H/O breast surgery left H/O cardiac catheterization Onset Date: ~08/2002 H/O foot surgery left H/O vaginal hysterectomy Onset Date: ~1964 H/O ventral hernia repair Onset Date: ~1998 [facility] right lower quad. History of YAG laser capsulotomy of lens Onset Date: ~04/07/10 bilateral, Dr. Hooper 08/15/07 04/07/10 History of appendectomy Onset Date: ~1942 History of tonsillectomy Onset Date: ~1949 Hx of cholecystectomy Onset Date: ~1966 History of esophagogastroduodenoscopy (EGD) Onset Date: ~09/04/[address] ramirez hiatal hernia, gastritis. Family History: Family History (Last Reviewed 03/30/20 @ 15:46 by Valente Schofield MD) Brother Diabetes Cancer kidney, bladder and prostate. Brother Diabetes Father , age 80 Cancer lung Mother , age 76 Hypertension CVA (cerebral vascular accident) Sister Alive and well Sister Hepatitis C Sister Parkinsons Son Myocardial infarction Son Cancer brain cancer Social History: (Last Reviewed 03/30/20 @ 15:46 by Valente Schofield MD) Social History: halfway: No Marital status: / lives independently: Yes household members: none number of children: 5 current occupational status: retired Highest education level completed: 10th grade Service: No Tobacco: Smoking Status: Never smoker Alcohol: alcohol intake: former Substance Use: substance use type: does not use Dietary Habits: caffeine: Yes caffeine comment: current every day Physical Exam - Physical Exam General Appearance: Present: alert, no apparent distress, other - coughing Head Exam: Present: normal inspection, no evidence of injury Eye Exam: Normal inspection: bilateral, PERRL: bilateral Ears, Nose, Throat: Present: normal ENT inspection Neck: Present: normal inspection Respiratory: Present: other - mild tachypnea, scattered rales and wheezes. Cardiovascular/Chest: Present: regular rate, rhythm, normal peripheral pulses Gastrointestinal/Abdominal: Present: normal bowel sounds, nontender, nondistended, soft Extremity Exam: Present: other - no calf tenderness. No deformity. Nothing that appears to be a fracture Neurological Exam: Present: alert, other - generalized weakness, no acute focal weakness Skin Exam: Present: normal color, warm/dry Progress - Results and Orders Patient's Lab Results:: I have reviewed the patient's lab results. - Vital Signs Patient's Vital Signs:: I have reviewed the patient's vital signs. Vital Signs: Vital Signs 03/30/20 13:06 03/30/20 13:15 03/30/20 13:34 Temperature 37.2 C 37.6 C Pulse Rate 73 68 78 Respiratory Rate 24 H 16 Blood Pressure 154/57 H 171/60 H O2 Sat by Pulse Oximetry 96 97 03/30/20 13:54 03/30/20 14:04 03/30/20 14:24 Temperature Pulse Rate 71 78 78 Respiratory Rate 16 16 Blood Pressure 171/67 H O2 Sat by Pulse Oximetry 97 03/30/20 14:29 03/30/20 15:08 Temperature 37.5 C 37.4 C Pulse Rate 91 62 Respiratory Rate 12 16 Blood Pressure 171/67 H 190/60 H O2 Sat by Pulse Oximetry 98 95 - EKG EKG #1 EKG: NSR EKG read: Interp. by me EKG Comments: NSR rate 76. Non-specific, no STEMI - X-Ray X-Ray #1 X-Ray: chest Interpretation: Interp. by me X-ray Comments: No real time radiology reads. I personally reviewed CXR image, likely viral pneumonia and CHF - Progress/Reassessment Chief Complaint: Dyspnea Progress Note-Subjective: 03/30/20 15:48 IV Lasix given. IV dexamethasone given. D/W Dr Crespo, she will admit. Medically maximized for transfer to medical floor in the hospital. Departure Clinical Impression: COVID-19 virus infection, CHF (congestive heart failure), Generalized weakness - Departure Disposition: Still a patient Condition: Fair Referrals: Bryan Mccarty DO [Primary Care Provider] -
[2020-03-30 16:33] LABS: Urine Bilirubin Negative (NEGATIVE); Urine Blood 250 /ul (NEGATIVE); Urine Color Yellow; Urine Ketone Negative (NEGATIVE); Urine Protein 100 mg/dL (NEGATIVE); Urine pH 5.5 pH (5.0-7.0)
[2020-03-30 16:34] LABS: Urine Nitrite Negative (NEGATIVE); Urine Urobilinogen Normal (NORMAL)
[2020-03-30 16:36] LABS: Urine WBC 0-5 /hpf (0-5)
[2020-03-30 16:37] LABS: Urine Appearance Slightly Cloudy (CLEAR); Urine Bacteria None Seen
[2020-03-30] MEDS ORDERED: guaiFENesin 100 MG/5 ML SYRUP PO PRN (21:20)
[2020-03-30] MEDS ORDERED: AZITHROMYCIN 250 MG TABLET PO ONE (21:22)
[2020-03-30] MEDS ORDERED: ALBUTEROL SULFATE 200 PUFF INHALER IH PRN (21:25)
--- NOTE | 2020-03-30 22:03 | HP ---
Chief Complaint - Chief Complaint Date of Service: 03/30/20 Time of Service: 21:50 Chief Complaint: I have had shortness of breath and cough for more than a week History of Present Illness: 84-year-old female with past medical history of CHF, hyperlipidemia, hypertension, morbid obesity, GERD, COPD, type 2 diabetes, osteoarthritis, was brought to the ER by EMS for evaluation of increasing generalized weakness, shortness of breath, and a persistent dry cough for more than a week. Patient is a poor historian and was not able to provide a history in great detail, she lives alone and is unaccompanied here at the hospital. From what she was able to tell me she reports several weeks ago she developed a persistent dry cough that gradually got worse and subsequently developed worsening shortness of breath. The patient reports feeling weak and having a generalized body ache, she is not sure if she had fever but says she hurts all over. The patient has home health and what her nurse went and to evaluate her she noticed that the patient was weak pale and appeared acutely ill. The the nurse then called EMS and had the patient transferred to the hospital for evaluation and treatment. Once in the ER the patient underwent an extensive work-up that included lab exam and chest x-ray and she was found to be positive for COVID-19. Chest x-ray revealed a a pattern that is consistent with COVID-19 pneumonia and possible pulmonary edema. Patient was treated with IV diuretics in the ER and was started on dexamethasone for the COVID-19. Of note the patient also had multiple bruising on her left shoulder left cheek left thigh and left lower extremity, when questioned about these bruises she reports that she fell several days ago but cannot provide any details of the fall. Aside from the bruising there was no evidence of further injury so we will just monitor this for now. Medical History (Last Reviewed 03/30/20 @ 17:04 by Mamie Rodriguez RN) Chronic pain (Chronic) Elevated sed rate (Chronic) Polyarthralgia (Chronic) Low back pain (Chronic) Insomnia (Acute) GERD (gastroesophageal reflux disease) (Chronic) Healing pressure ulcer, stage III (Resolved) Healing pressure ulcer stage III (Acute) L. heal Intractable back pain (Acute) Neuropathic pain of right hand (Chronic) Low back pain radiating to both legs (Acute) Onset 2 weeks ago. Osteoarthritis of left knee (Chronic) Instability of left knee joint (Chronic) Right flank pain (Acute) R. flank pain radiates into the R. groin. No hx. of kidney stones. No fever or chills.1. UA Herpes zoster (Acute) Generalized weakness (Acute) Neck pain (Acute) CHF (congestive heart failure) Asthma COPD (chronic obstructive pulmonary disease) Diabetes mellitus, type II Diarrhea Onset Date: ~01/06/12 Fatigue Hyperlipidemia Hyperthyroidism Lumbar radiculopathy Obesity Pyriformis syndrome right Sciatica Urinary incontinence Blurred vision Emphysema lung Hip pain Ischemic stroke Pneumonia Postmenopausal atrophic vaginitis Onset Date: ~01/12/16 Psoriasis age 17 Rheumatic fever Skin lesion Onset Date: ~10/03/12 left shinto Vaginal pain Onset Date: ~01/12/16 Surgical History: Surgical History (Last Reviewed 03/30/20 @ 17:04 by Mamie Rodriguez RN) History of back surgery Onset Date: ~04/16/19 [facility] Cataract Onset Date: ~07/04/07 bilateral, 06/20/07 and 07/04/07 H/O adenoidectomy Onset Date: ~1949 H/O arthroscopic knee surgery left H/O breast surgery left H/O cardiac catheterization Onset Date: ~08/2002 H/O foot surgery left H/O vaginal hysterectomy Onset Date: ~1964 H/O ventral hernia repair Onset Date: ~1998 [place] right lower quad. History of YAG laser capsulotomy of lens Onset Date: ~04/07/10 bilateral, Dr. Hooper 08/15/07 04/07/10 History of appendectomy Onset Date: ~1942 History of tonsillectomy Onset Date: ~1949 Hx of cholecystectomy Onset Date: ~1966 History of esophagogastroduodenoscopy (EGD) Onset Date: ~09/04/[address] ramirez hiatal hernia, gastritis. Family History: Family History (Last Reviewed 03/30/20 @ 17:05 by Mamie Rodriguez RN) Brother Diabetes Cancer kidney, bladder and prostate. Brother Diabetes Father , age 80 Cancer lung Mother , age 76 Hypertension CVA (cerebral vascular accident) Sister Alive and well Sister Hepatitis C Sister Parkinsons Son Myocardial infarction Son Cancer brain cancer Social History: (Last Reviewed 03/30/20 @ 17:06 by Mamie Rodriguez RN) Social History: fci: No Marital status: / lives independently: Yes household members: none number of children: 5 current occupational status: retired Highest education level completed: 7th grade Service: No Tobacco: Smoking Status: Former smoker Alcohol: alcohol intake: former Substance Use: substance use type: does not use Dietary Habits: caffeine: No caffeine comment: current every day Peds Patient Hx - Developmental: No Pertinent Hx Peds Patient Hx - Medical: No Pertinent Hx Peds Patient Hx - Cardiac/Respiratory: No Pertinent Hx Peds Patient Hx - Surgical: No Surgical History Patient History - Cancer: No Hx of Cancer Review Of Systems (GEN) - Review of Systems Generalized/Overall Review: Present: Weakness, Chills, Fatigue EENTM: Present: No Symptoms Reported Respiratory: Present: Cough, Shortness of Breath Cardiac: Present: No Symptoms Reported Abdominal: Present: Diarrhea Genitourinary: Present: No Symptoms Reported Musculoskeletal: Present: Joint Pain - Multiple joint pain and stiffness Neurological: Present: No Symptoms Reported Skin: Present: Bruising Endocrine: Present: No Symptoms Reported Immunizations: IMMUNIZATION HX Immunizations Up to Date Yes History of Influenza Vaccine Yes Hx Pneumococcal Vaccination Yes Allergies/Adverse Reactions: Allergies Allergy/AdvReac Type Severity Reaction Status Date / Time No Known Allergies Allergy Verified 03/30/20 17:06 Home Medications: HOME MEDICATIONS Menthol [Icy Hot] 1 spray TP BID PRN 09/28/17 [Last Taken Unknown] pen needle, diabetic 32 gauge x 5/16" See Dose Instructions .ROUTE .MEDSUPPLY #100 ea 01/25/18 [Last Taken Unknown] acetaminophen 325 mg tablet 650 mg PO Q4H PRN #100 tab 02/26/19 [Last Taken Unknown] Sennosides [Senna Laxative] 1 tab PO BID PRN 04/11/19 [Last Taken Unknown] nystatin 100,000 unit/gram topical powder 1 applic TOPICAL BID #30 g 04/12/19 [Last Taken Unknown] blood sugar diagnostic See Rx Instructions .ROUTE .COMPLEX #100 strip 06/15/19 [Last Taken Unknown] aspirin 81 mg tablet,delayed release See Rx Instructions .ROUTE .COMPLEX #30 tab 06/20/19 [Last Taken Unknown] ferrous sulfate 325 mg (65 mg iron) tablet 325 mg PO DAILY #30 tab 06/20/19 [Last Taken Unknown] melatonin 3 mg tablet 5 mg PO HS #30 tab 06/20/19 [Last Taken Unknown] omega-3 fatty acids 1,000 mg capsule 1,000 mg PO 1200 #30 cap 06/20/19 [Last Taken Unknown] vit A,C and C-[id number]-oqqmsoxv 1,000 unit-C 200 mg-E 60 unit-lutein 2 mg and minerals tablet 1 tab PO BID #60 tab 06/20/19 [Last Taken Unknown] amlodipine 10 mg tablet 10 mg PO DAILY #30 tab 06/22/19 [Last Taken Unknown] albuterol sulfate 90 mcg/actuation aerosol inhaler 1 puff IH QID PRN #18 g 07/26/19 [Last Taken Unknown] insulin glargine 100 unit/mL (3 mL) subcutaneous pen 24 unit SUBCUT HS #15 ml MDD 24 units 09/13/19 [Last Taken Unknown] dorzolamide 22.3 mg-timolol 6.8 mg/mL eye drops 1 drp OP BID ml 09/19/19 [Last Taken Unknown] methotrexate sodium 2.5 mg tablet 12.5 mg PO QWEEK #20 tab 09/21/19 [Last Taken Unknown] folic acid 1 mg tablet See Rx Instructions .ROUTE .COMPLEX #30 unknown measurement unit code: tablet 12/19/19 [Last Taken Unknown] levothyroxine 75 mcg tablet See Rx Instructions .ROUTE .COMPLEX #30 unknown measurement unit code: tablet 12/19/19 [Last Taken Unknown] pantoprazole 20 mg tablet,delayed release See Rx Instructions .ROUTE .COMPLEX #60 unknown measurement unit code: tablet 12/19/19 [Last Taken Unknown] quetiapine 100 mg tablet See Rx Instructions .ROUTE .COMPLEX #30 unknown measurement unit code: tablet 12/19/19 [Last Taken Unknown] sertraline 50 mg tablet See Rx Instructions .ROUTE .COMPLEX #30 unknown measurement unit code: tablet 12/19/19 [Last Taken Unknown] donepezil 10 mg tablet 10 mg PO DAILY #30 tab 12/26/19 [Last Taken Unknown] Nitrofurantoin/Nitrofuran Mac [Macrobid] 100 mg PO Q12H #20 cap 01/03/20 [Last Taken Unknown] calcium carbonate 600 mg (1,500 mg)-vitamin D3 400 unit tablet 1 tab PO BID #0.1 tab 01/17/20 [Last Taken Unknown] gabapentin 100 mg capsule See Rx Instructions .ROUTE .COMPLEX #90 unknown measurement unit code: capsule 01/21/20 [Last Taken Unknown] sulfamethoxazole 800 mg-trimethoprim 160 mg tablet 1 tab PO BID #14 tab 02/15/20 [Last Taken Unknown] prednisone 1 mg tablet 2 mg PO DAILY #90 tab 03/05/20 [Last Taken Unknown] tramadol 50 mg tablet 50 mg PO TID #90 tab 03/19/20 [Last Taken Unknown] cetirizine 10 mg tablet 10 mg PO DAILY #30 tab 03/20/20 [Last Taken Unknown] ipratropium bromide 42 mcg (0.06 %) nasal spray 2 spray MOOKIE QID #15 ml 03/25/20 [Last Taken Unknown] Exam - Exam Vital Signs: Vital Signs - Last Taken Temp 37 C 03/30/20 19:33 Pulse 92 03/30/20 19:33 Resp 20 03/30/20 19:33 BP 177/46 H 03/30/20 19:33 Pulse Ox 96 03/30/20 19:33 Constitutional: Present: Alert, Cooperative, Well developed, Well nourished, No distress, Elderly, Obese ENT Exam: Present: normal ENT inspection, hearing grossly normal Eye Exam: bilateral eye: normal inspection, PERRL, EOMI Neck: Present: non-tender, full range of motion, supple, normal inspection, trachea midline Back Exam: Present: normal inspection, no CVA tenderness, no vertebral tenderness Breasts: Present: Exam deferred, Nontender Respiratory: Present: chest non-tender, no respiratory distress, no accessory muscle use, crackles - Bibasilar crackles Cardiovascular/Chest: Present: normal peripheral pulses, regular rate, rhythm, no chest tenderness, no edema, no gallop, no JVD, no murmur, no rub Peripheral Pulses: dorsalis-pedis (R): 2+, dorsalis-pedis (L): 2+ Abdomen: Present: Normal bowel sounds, soft, nontender, nondistended, no rebound tenderness, no hepatospenomegaly, no masses, obese /Rectal: Present: Exam deferred Extremity: Present: normal range of motion, non-tender, normal inspection, no pedal edema, no calf tenderness, normal capillary refill, pelvis stable Skin Exam: Present: warm/dry, no cyanosis, other - Multiple bruises on left shoulder and left cheek left upper extremity and left lower extremity Lymphatic: Present: no adenopathy Neurologic: Present: wood club neck whipper II-XII nml as tested, normal cerebellar test, no motor/sensory deficits, alert, normal mood/affect, oriented x 3 Appearance: Present: appropriate appearance, appropriate insight, neat, no memory impairment Eye contact: Present: cooperative, good eye contact, normal speech Thoughts: Present: normal thought pattern, no apparent hallucination Diagnostic Studies: Abnormal Lab Results 03/30/20 03/30/20 03/30/20 Range/Units 13:15 13:15 13:40 RBC 3.76 L (4.2-5.4) M/mm3 Hgb 10.9 L (12.5-16.0) gm/dL Hct 34.3 L (37.0-47.0) % MCHC 31.8 L (32-36) g/dl RDW 17.4 H (11.5-14.0) % Immature Gran % (Auto) 1.00 H (0.001-0.429) % Immature Gran # (Auto) 0.06 H (0.000-0.0310) K/mm3 Neutrophils % 78.8 H (42-75.0) % Lymphocytes % 11.3 L (20-51) % Lymphocytes # 0.71 L (1.5-3.5) k/mm3 BUN 28 H (3-23) mg/dL Est GFR (Non-Af Amer) 52 L (60-130) mL/min BUN/Creatinine Ratio 25.9 H (9.0-21.6) Random Glucose 151 H (70-110) mg/dL B-Natriuretic Peptide 4763 H (5-550) pg/mL Albumin 2.9 L (3.4-5.0) gm/dl Urine Protein (NEGATIVE) mg/dL Urine Blood (NEGATIVE) /ul Prot Sulfosalicylic Acd (0) mg/dL Urine RBC (0-5) /hpf SARS-CoV-2 (PCR) Detected H (NotDetected) 03/30/20 Range/Units 15:06 RBC (4.2-5.4) M/mm3 Hgb (12.5-16.0) gm/dL Hct (37.0-47.0) % MCHC (32-36) g/dl RDW (11.5-14.0) % Immature Gran % (Auto) (0.001-0.429) % Immature Gran # (Auto) (0.000-0.0310) K/mm3 Neutrophils % (42-75.0) % Lymphocytes % (20-51) % Lymphocytes # (1.5-3.5) k/mm3 BUN (3-23) mg/dL Est GFR (Non-Af Amer) (60-130) mL/min BUN/Creatinine Ratio (9.0-21.6) Random Glucose (70-110) mg/dL B-Natriuretic Peptide (5-550) pg/mL Albumin (3.4-5.0) gm/dl Urine Protein 100 H (NEGATIVE) mg/dL Urine Blood 250 H (NEGATIVE) /ul Prot Sulfosalicylic Acd 4+ H (0) mg/dL Urine RBC 10-25 H (0-5) /hpf SARS-CoV-2 (PCR) (NotDetected) Laboratory Results WBC 6.3 K/mm3 (4.0-10.5) 03/30/20 13:15 RBC 3.76 M/mm3 (4.2-5.4) L 03/30/20 13:15 Hgb 10.9 gm/dL (12.5-16.0) L 03/30/20 13:15 Hct 34.3 % (37.0-47.0) L 03/30/20 13:15 MCV 91.2 fl (78-100) 03/30/20 13:15 MCH 29.0 pg (27-31) 03/30/20 13:15 MCHC 31.8 g/dl (32-36) L 03/30/20 13:15 RDW 17.4 % (11.5-14.0) H 03/30/20 13:15 Plt Count 195 K/mm3 (150-450) 03/30/20 13:15 MPV 9.4 fl (8-12.5) 03/30/20 13:15 Immature Gran % (Auto) 1.00 % (0.001-0.429) H 03/30/20 13:15 Immature Gran # (Auto) 0.06 K/mm3 (0.000-0.0310) H 03/30/20 13:15 Neutrophils % 78.8 % (42-75.0) H 03/30/20 13:15 Lymphocytes % 11.3 % (20-51) L 03/30/20 13:15 Monocytes % 8.7 % (0.0-9) 03/30/20 13:15 Eosinophils % 0.0 % (0.0-3.0) 03/30/20 13:15 Basophils % 0.2 % (0.0-1.0) 03/30/20 13:15 Nucleated RBC % 0.0 k/mm3 (0-1) 03/30/20 13:15 Neutrophils # 5.0 K/mm3 (1.3-6.0) 03/30/20 13:15 Lymphocytes # 0.71 k/mm3 (1.5-3.5) L 03/30/20 13:15 Monocytes # 0.6 k/mm3 (0.0-1.0) 03/30/20 13:15 Eosinophils # 0.0 k/mm3 (0.0-0.7) 03/30/20 13:15 Absolute Basophils 0.0 k/mm3 (0.0-0.1) 03/30/20 13:15 Sodium 136 mmol/L (132-142) 03/30/20 13:15 Plasma Sodium 137 mmol/L (130-142) 03/30/20 13:15 Potassium 3.6 mmol/L (3.4-4.6) 03/30/20 13:15 Chloride 100 mmol/L (97-106) 03/30/20 13:15 Carbon Dioxide 25.9 mmol/L (24-32.6) 03/30/20 13:15 Anion Gap 13.7 mmol/L (6.8-13.8) 03/30/20 13:15 BUN 28 mg/dL (3-23) H 03/30/20 13:15 Creatinine 1.08 mg/dL (0.4-1.4) 03/30/20 13:15 Est GFR (Non-Af Amer) 52 mL/min (60-130) L 03/30/20 13:15 BUN/Creatinine Ratio 25.9 (9.0-21.6) H 03/30/20 13:15 Random Glucose 151 mg/dL (70-110) H 03/30/20 13:15 Lactic Acid, Venous 1.1 mmol/L (0.4-2.0) 03/30/20 13:15 Calcium 9.0 mg/dL (7.9-10.9) 03/30/20 13:15 Calcium Adj for Albumin 9.6 mg/dL (8.4-10.2) 03/30/20 13:15 Total Bilirubin 0.4 mg/dL (0.0-1.1) 03/30/20 13:15 AST 25 U/L (0-48) 03/30/20 13:15 ALT 23 U/L (19-67) 03/30/20 13:15 Alkaline Phosphatase 130 U/L (50-170) 03/30/20 13:15 Troponin I Less than 0.017 ng/mL (0.00-0.10) 03/30/20 13:15 B-Natriuretic Peptide 4763 pg/mL (5-550) H 03/30/20 13:15 Total Protein 7.0 gm/dL (6.2-8.2) 03/30/20 13:15 Albumin 2.9 gm/dl (3.4-5.0) L 03/30/20 13:15 Urine Color Yellow 03/30/20 15:06 Urine Appearance Slightly cloudy (CLEAR) 03/30/20 15:06 Urine pH 5.5 pH (5.0-7.0) 03/30/20 15:06 Ur Specific [place] 1.020 SP.GR. (1.005-1.010) 03/30/20 15:06 Urine Protein 100 mg/dL (NEGATIVE) H 03/30/20 15:06 Urine Glucose (UA) Negative mg/dL (NEGATIVE) 03/30/20 15:06 Urine Ketones Negative mg/dL (NEGATIVE) 03/30/20 15:06 Urine Blood 250 /ul (NEGATIVE) H 03/30/20 15:06 Urine Nitrate Negative (NEGATIVE) 03/30/20 15:06 Urine Bilirubin Negative mg/dl (NEGATIVE) 03/30/20 15:06 Prot Sulfosalicylic Acd 4+ mg/dL (0) H 03/30/20 15:06 Urine Urobilinogen Normal EU/dl (NORMAL) 03/30/20 15:06 Ur Leukocyte Esterase Negative /ul (NEGATIVE) 03/30/20 15:06 Urine RBC 10-25 /hpf (0-5) H 03/30/20 15:06 Urine WBC 0-5 /hpf (0-5) 03/30/20 15:06 Ur Epithelial Cells 0-5 /hpf (0-5) 03/30/20 15:06 Urine Bacteria None seen (NONE) 03/30/20 15:06 Urine Culture Comments No culture indicated 03/30/20 15:06 SARS-CoV-2 (PCR) Detected (NotDetected) H 03/30/20 13:40 Assessment/Plan - Narrative Narrative: Patient was evaluated and medical chart was reviewed and decision to admit for COVID-19 pneumonia and CHF was made. The patient was found to have elevated BNP on admission and crackles on auscultation supporting a diagnosis of a decompensated CHF. For this she was treated with IV Lasix, but I am ordering additional doses be given to her during the hospitalization in order to diurese her. For her COVID-19 she will be started on azithromycin and dexamethasone, symptomatic medications will also be ordered to treat fever cough and shortness of breath. We will monitor her closely. - Assessment/Plan (1) COVID-19 virus infection Problem: Acute (2) Chronic pain Problem: Chronic Qualifiers: (3) Polyarthralgia Problem: Chronic (4) Cough Problem: Acute (5) GERD (gastroesophageal reflux disease) Problem: Chronic (6) Acute kidney injury Problem: Acute (7) Insulin dependent diabetes mellitus Problem: Acute (8) Decompensated heart failure Problem: Acute
[2020-03-30] MEDS ORDERED: AZITHROMYCIN 250 MG TABLET ONE (22:27)
[2020-03-30] MEDS: TIMOLOL MALEATE/DORZOLAM HCL 100 DROP BTL OP SCH (22:33)
[2020-03-30] MEDS: IPRATROPIUM BROMIDE NS SCH (22:33)
[2020-03-30] MEDS: ENOXAPARIN SODIUM 40 MG/0.4 ML SYRG SC SCH (22:33)
[2020-03-30] MEDS: CALCIUM CARBONATE/VITAMIN D3 1 TAB TABLET PO SCH (22:33)
[2020-03-30] MEDS: INSULIN GLARGINE,HUM.REC.ANLOG 100 UNITS/ML VIAL SC SCH (22:34)
[2020-03-30] MEDS: FUROSEMIDE 10 MG/ML VIAL IV SCH (22:34)
[2020-03-30] MEDS: GABAPENTIN 100 MG CAPSULE PO SCH (22:34)
[2020-03-30] MEDS ORDERED: PANTOPRAZOLE SODIUM 20 MG TABLET.DR ONE (22:39)
[2020-03-31 06:31] LABS: Hematocrit 36.7 % (37.0-47.0); Hemoglobin 11.6 gm/dL (12.5-16.0); Mean Corpuscular Hemoglobin 28.4 pg (27-31); Mean Corpuscular Hgb Conc 31.6 g/dl (32-36); Mean Platelet Volume 9.3 fl (8-12.5); Neutrophil # 4.6 K/mm3 (1.3-6.0); Neutrophil % 82.5 % (42-75.0); Platelet Count 202 K/mm3 (150-450); Red Blood Count 4.08 M/mm3 (4.2-5.4); Red Cell Distribution Width 17.2 % (11.5-14.0); White Blood Count 5.6 K/mm3 (4.0-10.5)
[2020-03-31 06:44] LABS: Albumin * 3.1 gm/dl (3.4-5.0); BUN/Creatinine Ratio 26.5 (9.0-21.6); Bilirubin, Total 0.4 mg/dL (0.0-1.1); Ca. Corrected For Albumin 9.2 mg/dL (8.4-10.2); Calcium * 8.8 mg/dL (7.9-10.9); Carbon Dioxide 26.7 mmol/L (24-32.6); Potassium 3.7 mmol/L (3.4-4.6); Total Protein 7.5 gm/dL (6.2-8.2)
[2020-03-31] MEDS: PANTOPRAZOLE SODIUM 20 MG TABLET.DR PO SCH ×2 (07:21→20:18)
[2020-03-31] MEDS ORDERED: DEXAMETHASONE 4 MG TABLET PO SCH (09:00)
[2020-03-31] MEDS: DONEPEZIL HCL 10 MG TABLET PO SCH (09:04)
[2020-03-31] MEDS: CALCIUM CARBONATE/VITAMIN D3 1 TAB TABLET PO SCH ×2 (09:04→20:15)
[2020-03-31] MEDS: FERROUS SULFATE 325 MG TABLET PO SCH (09:04)
[2020-03-31] MEDS: GABAPENTIN 100 MG CAPSULE PO SCH ×3 (09:04→16:33)
[2020-03-31] MEDS: ASPIRIN 81 MG TABLET.DR PO SCH (09:04)
[2020-03-31] MEDS: amLODIPine BESYLATE 10 MG TABLET PO SCH (09:04)
[2020-03-31] MEDS: LORATADINE 10 MG TABLET PO SCH (09:04)
[2020-03-31] MEDS: FUROSEMIDE 10 MG/ML VIAL IV SCH ×2 (09:05→20:44)
[2020-03-31] MEDS: FOLIC ACID 1 MG TABLET PO SCH (09:05)
[2020-03-31] MEDS ORDERED: ACETAMINOPHEN 325 MG TABLET PO PRN (09:17)
[2020-03-31] MEDS ORDERED: SENNOSIDES 8.6 MG TABLET PO PRN (09:17)
[2020-03-31] MEDS: TIMOLOL MALEATE/DORZOLAM HCL 100 DROP BTL OP SCH ×2 (10:37→20:16)
[2020-03-31] MEDS: LEVOTHYROXINE SODIUM 75 MCG TABLET PO SCH (10:37)
[2020-03-31] MEDS: IPRATROPIUM BROMIDE NS SCH ×4 (10:37→20:15)
[2020-03-31] MEDS: traMADol HCL 50 MG TABLET PO SCH ×2 (12:32→16:33)
--- NOTE | 2020-03-31 12:46 | DS ---
(1) COVID-19 virus infection Problem: Acute (2) Elevated d-dimer Problem: Acute (3) Generalized weakness Problem: Acute (4) Pneumonia due to COVID-19 virus Problem: Acute (5) Fall at home Problem: Acute Qualifiers: Encounter type: subsequent encounter Qualified Code(s): W19.XXXD - Unspecified fall, subsequent encounter; Y92.009 - Unspecified place in unspecified non-institutional (private) residence as the place of occurrence of the external cause (6) Insulin dependent diabetes mellitus Problem: Chronic (7) Elevated sed rate Problem: Acute Date of Discharge:: 04/02/20 Hospital Course: 84-year-old female with past medical history of CHF, hyperlipidemia, hypertension, morbid obesity, GERD, COPD, type 2 diabetes, osteoarthritis, was brought to the ER by EMS for evaluation of increasing generalized weakness, shortness of breath, and a persistent dry cough for more than a week. Patient is a poor historian and was not able to provide a history in great detail, she lives alone and is unaccompanied here at the hospital. From what she was able to tell me she reports several weeks ago she developed a persistent dry cough that gradually got worse and subsequently developed worsening shortness of breath. The patient reports feeling weak and having a generalized body ache, she is not sure if she had fever but says she hurts all over. The patient has home health and what her nurse went and to evaluate her she noticed that the patient was weak pale and appeared acutely ill. The the nurse then called EMS and had the patient transferred to the hospital for evaluation and treatment. Once in the ER the patient underwent an extensive work-up that included lab exam and chest x-ray and she was found to be positive for COVID-19. Chest x-ray revealed a a pattern that is consistent with COVID-19 pneumonia and possible pulmonary edema. Patient was treated with IV diuretics in the ER and was started on dexamethasone for the COVID-19. Of note the patient also had multiple bruising on her left shoulder left cheek left thigh and left lower extremity, when questioned about these bruises she reports that she fell several days ago but cannot provide any details of the fall. Aside from the bruising there was no evidence of further injury so we will just monitor this for now. In reviewing the chart she has not had any hypoxemia. lowest Ot sat was 93% but most are above 95%. There is no respiratory distress and no tachypnea. HR is well controlled. She is an insulin dep. diab. but BSs have not yet gone up due to the steroids. Pro moon is neg. D-dime pos. @ 1.45. She is weak and has recently had a fall. Ecchymosis as described above. She has improved in strength and mentation over the past 48 hrs. Her Home health Nurse will check on her daily by telephone. Also she has a neighbor who has commited to help take care of her. She is now independent enough to go home with these support services and will be discharged to home. Repeat CXR is unchanged. As expected the Sed rate and CRP are elevated. She has not had any worsening of her respiratory status and her Sats are in the upper 90s on room air. Her Covid 19 status is in the moderate category. Procedures Performed: none Results and Findings: Lab Pending Results 03/30/20 13:15: WBC 6.3, RBC 3.76 L, Hgb 10.9 L, Hct 34.3 L, MCV 91.2, MCH 29.0, MCHC 31.8 L, RDW 17.4 H, Plt Count 195, MPV 9.4, Immature Gran % (Auto) 1.00 H, Immature Gran # (Auto) 0.06 H, Neutrophils % 78.8 H, Lymphocytes % 11.3 L, Monocytes % 8.7, Eosinophils % 0.0, Basophils % 0.2, Nucleated RBC % 0.0, Neutrophils # 5.0, Lymphocytes # 0.71 L, Monocytes # 0.6, Eosinophils # 0.0, Absolute Basophils 0.0 03/30/20 13:15: Sodium 136, Plasma Sodium 137, Potassium 3.6, Chloride 100, Carbon Dioxide 25.9, Anion Gap 13.7, BUN 28 H, Creatinine 1.08, Est GFR (Non-Af Amer) 52 L, BUN/Creatinine Ratio 25.9 H, Random Glucose 151 H, Calcium 9.0, Calcium Adj for Albumin 9.6, Total Bilirubin 0.4, AST 25, ALT 23, Alkaline Phosphatase 130, Troponin I Less than 0.017, B-Natriuretic Peptide 4763 H, Total Protein 7.0, Albumin 2.9 L 03/30/20 13:15: Lactic Acid, Venous 1.1 03/30/20 13:40: SARS-CoV-2 (PCR) Detected H 03/30/20 15:06: Urine Color Yellow, Urine Appearance Slightly cloudy, Urine pH 5.5, Ur Specific [place] 1.020, Urine Protein 100 H, Urine Glucose (UA) Negative, Urine Ketones Negative, Urine Blood 250 H, Urine Nitrate Negative, Urine Bilirubin Negative, Prot Sulfosalicylic Acd 4+ H, Urine Urobilinogen Normal, Ur Leukocyte Esterase Negative, Urine RBC 10-25 H, Urine WBC 0-5, Ur Epithelial Cells 0-5, Urine Bacteria None seen, Urine Culture Comments No culture indicated 03/31/20 06:20: WBC 5.6, RBC 4.08 L, Hgb 11.6 L, Hct 36.7 L, MCV 90.0, MCH 28.4, MCHC 31.6 L, RDW 17.2 H, Plt Count 202, MPV 9.3, Immature Gran % (Auto) 0.90 H, Immature Gran # (Auto) 0.05 H, Neutrophils % 82.5 H, Lymphocytes % 9.9 L, Monocytes % 6.5, Eosinophils % 0.0, Basophils % 0.2, Nucleated RBC % 0.0, Neutrophils # 4.6, Lymphocytes # 0.55 L, Monocytes # 0.4, Eosinophils # 0.0, Absolute Basophils 0.0 03/31/20 06:20: Sodium 135, Plasma Sodium 136, Potassium 3.7, Chloride 98, Carbon Dioxide 26.7, Anion Gap 14.0 H, BUN 30 H, Creatinine 1.13, Est GFR (Non- Af Amer) 49 L, BUN/Creatinine Ratio 26.5 H, Random Glucose 154 H, Calcium 8.8, Calcium Adj for Albumin 9.2, Total Bilirubin 0.4, AST 29, ALT 21, Alkaline Phos phatase 138, Total Protein 7.5, Albumin 3.1 L 03/31/20 06:20: D-Dimer 1.45 H 03/31/20 06:20: Procalcitonin 0.08 Discharge Location: Home Disposition: Home Health Service Home [facility] Agency: [facility] Condition: Fair Face to Face Encounter completed per CMS Guidelines: No Discharge Activity: Activity as tolerated Discharge Diet: Consistent carbs Referrals: Bryan Mccarty DO [Primary Care Provider] - Additional Patient Instructions (free text): Resume services with [facility] . Call Maya with report at [phone]. Fax orders and DC Summary at discharge. Resume Donepezil 5 days after completing the Azithromycin. Resume Prednisone after the Dexamethesone is completed Prescriptions (Any new or edited meds): Azithromycin 250 mg PO DAILY #1 tab Transmission Status: Pending to [facility] Dexamethasone 6 mg PO DAILY #4 tab Transmission Status: Pending to [facility] Complete Home Medications List: Complete Home Medication List: Menthol [Icy Hot] 1 spray TP BID PRN 09/28/17 pen needle, diabetic 32 gauge x 10/05" See Dose Instructions .ROUTE .MEDSUPPLY #100 ea 01/25/18 acetaminophen 325 mg tablet 650 mg PO Q4H PRN #100 tab 02/26/19 Sennosides [Senna Laxative] 1 tab PO BID PRN 04/11/19 nystatin 100,000 unit/gram topical powder 1 applic TOPICAL BID #30 g 04/12/19 blood sugar diagnostic See Rx Instructions .ROUTE .COMPLEX #100 strip 06/15/19 aspirin 81 mg tablet,delayed release See Rx Instructions .ROUTE .COMPLEX #30 tab 06/20/19 ferrous sulfate 325 mg (65 mg iron) tablet 325 mg PO DAILY #30 tab 06/20/19 melatonin 3 mg tablet 5 mg PO HS #30 tab 06/20/19 omega-3 fatty acids 1,000 mg capsule 1,000 mg PO 1200 #30 cap 06/20/19 vit A,C and D-bktqft-enoavfav 1,000 unit-C 200 mg-E 60 unit-lutein 2 mg and minerals tablet 1 tab PO BID #60 tab 06/20/19 amlodipine 10 mg tablet 10 mg PO DAILY #30 tab 06/22/19 albuterol sulfate 90 mcg/actuation aerosol inhaler 1 puff IH QID PRN #18 g 07/26/19 insulin glargine 100 unit/mL (3 mL) subcutaneous pen 24 unit SUBCUT HS #15 ml MDD 24 units 09/13/19 dorzolamide 22.3 mg-timolol 6.8 mg/mL eye drops 1 drp OP BID ml 09/19/19 methotrexate sodium 2.5 mg tablet 12.5 mg PO QWEEK #20 tab 09/21/19 folic acid 1 mg tablet See Rx Instructions .ROUTE .COMPLEX #30 unknown ernst surement unit code: tablet 12/19/19 donepezil 10 mg tablet 10 mg PO DAILY #30 tab 12/26/19 Nitrofurantoin/Nitrofuran Mac [Macrobid] 100 mg PO Q12H #20 cap 01/03/20 calcium carbonate 600 mg (1,500 mg)-vitamin D3 400 unit tablet 1 tab PO BID #0.1 tab 01/17/20 gabapentin 100 mg capsule See Rx Instructions .ROUTE .COMPLEX #90 unknown measurement unit code: capsule 01/21/20 sulfamethoxazole 800 mg-trimethoprim 160 mg tablet 1 tab PO BID #14 tab 02/15/20 prednisone 1 mg tablet 2 mg PO DAILY #90 tab 03/05/20 tramadol 50 mg tablet 50 mg PO TID #90 tab 03/19/20 cetirizine 10 mg tablet 10 mg PO DAILY #30 tab 03/20/20 ipratropium bromide 42 mcg (0.06 %) nasal spray 2 spray MOOKIE QID #15 ml 03/25/20 Levothyroxine Sodium [Synthroid] 75 mcg PO QAM 03/30/20 Pantoprazole Sodium 20 mg PO DAILY 03/30/20 QUEtiapine FUMARATE [Seroquel] 100 mg PO DAILY 03/30/20 Sertraline HCl [Zoloft] See Rx Instructions PO QAM 03/30/20 Acetaminophen [Tylenol] 650 mg PO Q4H PRN tab 03/31/20 Enoxaparin Sodium [Lovenox] 40 mg SC Q24H disp.syrin 03/31/20 Pantoprazole Sodium [Protonix] 20 mg PO BID #60 tablet. 03/31/20 guaiFENesin [Robitussin] 100 mg PO Q4H PRN syrup 03/31/20 Azithromycin 250 mg PO DAILY #1 tab 04/02/20 Dexamethasone 6 mg PO DAILY #4 tab 04/02/20 Forms: Patient Portal Registration
--- NOTE | 2020-03-31 18:02 | PN ---
Subjective - Date and Time Seen Date: 03/31/20 Time: 12:30 Subjective Narrative: Christina has had an uneventful night and morning today. She has COVID-19 infection diagnosed but she is in no respiratory distress. The lowest oxygen saturation recording that we have is 93% and the rest have been greater than 95%. She is not tachypneic or air hungry. She is coughing some. Wheezing has been reported but I do not hear any exam today. Her D-dimer is positive at 1.45 and the procalcitonin is normal. She is taking azithromycin but there is a drug interaction with her Aricept potentially causing prolonged QRS interval. I will have her hold the Aricept for the next 10 days and then restarted. She is too weak to care for herself at this time. She has fallen at home and has a lot of bruises on the left side of her body and face. She lives alone in an apartment and has no family to care for her. I believe she will need to go to the [facility] for rehabilitation before she can return to her home. Plan is for that to happen tomorrow. She is getting dexamethasone 6 mg daily and 81 mg of aspirin daily. Objective - Review of Systems Generalized/Overall Review: Reports: Weakness EENTM: Reports: No Symptoms Reported Respiratory: Reports: Cough, Shortness of Breath Cardiac: Reports: No Symptoms Reported Abdominal: Reports: No Symptoms Reported Genitourinary Symptoms: Reports: No Symptoms Reported Musculoskeletal Complaints: Reports: Other - Muscle soreness presumably from her fall Neurological: Reports: Weakness, Other - Hard of hearing Skin: Reports: Bruising Endocrine: Reports: No Symptoms Reported - Vitals Vitals: Last Vital Signs Temp 36.7 C 03/31/20 14:51 Pulse 77 03/31/20 16:00 Resp 16 03/31/20 14:51 BP 139/62 03/31/20 14:51 Pulse Ox 96 03/31/20 14:51 - Abnormal Lab Findings Abnormal Lab Findings: Abnormal Lab Results 03/31/20 03/31/20 03/31/20 Range/Units 06:20 06:20 06:20 RBC 4.08 L (4.2-5.4) M/mm3 Hgb 11.6 L (12.5-16.0) gm/dL Hct 36.7 L (37.0-47.0) % MCHC 31.6 L (32-36) g/dl RDW 17.2 H (11.5-14.0) % Immature Gran % (Auto) 0.90 H (0.001-0.429) % Immature Gran # (Auto) 0.05 H (0.000-0.0310) K/mm3 Neutrophils % 82.5 H (42-75.0) % Lymphocytes % 9.9 L (20-51) % Lymphocytes # 0.55 L (1.5-3.5) k/mm3 D-Dimer 1.45 H (0.19-0.49) ug/mL Anion Gap 14.0 H (6.8-13.8) mmol/L BUN 30 H (3-23) mg/dL Est GFR (Non-Af Amer) 49 L (60-130) mL/min BUN/Creatinine Ratio 26.5 H (9.0-21.6) Random Glucose 154 H (70-110) mg/dL Albumin 3.1 L (3.4-5.0) gm/dl - EKG/Xray Findings EKG: NSR, no ST T wave changes, nonspecific ST T wave chg EKG read: Reviewed by me XRAY: chest Interpretation: Reviewed by me - Exam Constitutional: Present: Alert, Oriented x3, Cooperative, Well developed, Well nourished, No distress ENT Exam: Present: normal ENT inspection, hearing grossly normal, pharynx normal, TMs normal Neck: Present: non-tender, full range of motion, supple, normal inspection Breasts: Present: Exam deferred Respiratory: Present: chest non-tender, lungs clear, normal breath sounds, No wheezing Cardiovascular/Chest: Present: normal peripheral pulses, regular rate, rhythm, no chest tenderness, no gallop, no JVD, no murmur, edema Abdomen: Present: Normal bowel sounds, soft, nontender, nondistended, no rebound tenderness, no hepatospenomegaly, no masses /Rectal: Present: Exam deferred Extremity: Present: normal range of motion - For age Skin Exam: Present: normal color, other - Multiple bruises on the left arm left hip left leg and left face Lymphatic: Present: no adenopathy Neurologic: Present: 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 Arrangements were being made to go to the [facility] tomorrow 2. Continue current therapy as ordered 3. Physical therapy to evaluate motor strength and stability 4. Continue dexamethasone and baby aspirin 5. Hold the Aricept - Problems/Diagnosis (1) Pneumonia due to COVID-19 virus Problem: Acute (2) Elevated d-dimer Problem: Acute (3) COVID-19 virus infection Problem: Acute (4) Fall at home Problem: Acute Qualifiers: Encounter type: subsequent encounter Qualified Code(s): W19.XXXD - Unspecified fall, subsequent encounter; Y92.009 - Unspecified place in unspecified non-institutional (private) residence as the place of occurrence of the external cause (5) Generalized weakness Problem: Acute
[2020-03-31] MEDS: ENOXAPARIN SODIUM 40 MG/0.4 ML SYRG SC SCH (20:16)
[2020-03-31] MEDS: ACETAMINOPHEN 325 MG TABLET PO PRN (20:16)
[2020-03-31] MEDS: NYSTATIN 15 APPL BTL TP SCH (20:18)
[2020-03-31] MEDS: BETA-CAROTENE(A) W-C , E/MIN 1 TAB TABLET PO SCH (20:18)
[2020-03-31] MEDS: AZITHROMYCIN 250 MG TABLET PO SCH (20:18)
[2020-03-31] MEDS: MELATONIN 3,000 MCG TABLET PO SCH (20:20)
[2020-03-31] MEDS: INSULIN GLARGINE,HUM.REC.ANLOG 100 UNITS/ML VIAL SC SCH (20:44)
[2020-04-01] MEDS: LEVOTHYROXINE SODIUM 75 MCG TABLET PO SCH (06:38)
[2020-04-01] MEDS: PANTOPRAZOLE SODIUM 20 MG TABLET.DR PO SCH ×2 (06:38→21:01)
[2020-04-01] MEDS: CALCIUM CARBONATE/VITAMIN D3 1 TAB TABLET PO SCH ×2 (08:55→21:00)
[2020-04-01] MEDS: GABAPENTIN 100 MG CAPSULE PO SCH ×3 (08:55→16:21)
[2020-04-01] MEDS: QUEtiapine FUMARATE 100 MG TABLET PO SCH (08:56)
[2020-04-01] MEDS: SERTRALINE HCL 50 MG TABLET PO SCH (08:56)
[2020-04-01] MEDS: LORATADINE 10 MG TABLET PO SCH (08:56)
[2020-04-01] MEDS: FOLIC ACID 1 MG TABLET PO SCH (08:57)
[2020-04-01] MEDS: DEXAMETHASONE 2 MG, DEXAMETHASONE 4 MG PO SCH ×2 (08:57)
[2020-04-01] MEDS: BETA-CAROTENE(A) W-C , E/MIN 1 TAB TABLET PO SCH ×2 (08:57→21:01)
[2020-04-01] MEDS: amLODIPine BESYLATE 10 MG TABLET PO SCH (08:58)
[2020-04-01] MEDS: ASPIRIN 81 MG TABLET.DR PO SCH (08:58)
[2020-04-01] MEDS: FERROUS SULFATE 325 MG TABLET PO SCH (08:59)
[2020-04-01] MEDS: IPRATROPIUM BROMIDE NS SCH ×4 (08:59→20:59)
[2020-04-01] MEDS: DONEPEZIL HCL 10 MG TABLET PO SCH (08:59)
[2020-04-01] MEDS: NYSTATIN 15 APPL BTL TP SCH ×2 (09:00→21:01)
[2020-04-01] MEDS ORDERED: PANTOPRAZOLE SODIUM 20 MG TABLET.DR PO SCH (09:00)
[2020-04-01] MEDS ORDERED: NYSTATIN 15 APPL BTL TP SCH (09:00)
[2020-04-01] MEDS ORDERED: METHOTREXATE SODIUM 2.5 MG TABLET PO SCH (09:00)
[2020-04-01] MEDS: traMADol HCL 50 MG TABLET PO SCH ×3 (09:02→16:21)
[2020-04-01] MEDS: TIMOLOL MALEATE/DORZOLAM HCL 100 DROP BTL OP SCH ×2 (09:03→21:00)
--- NOTE | 2020-04-01 11:53 | PN ---
Subjective - Date and Time Seen Date: 04/01/20 Time: 11:43 Subjective Narrative: Shaina is sitting up in her room and in no distress this morning. She appears to be in good spirits. Her respiratory rate still is less than 20 and she is not laboring to breathe. She had one oxygen saturation recorded at 90% this morning but nursing tells me that they do not believe it was accurate as the year monitor they were using was found to be loose. Subsequent O2 sat is been 96% on room air. She remains too weak to care for herself at home. Yesterday I had planned on sending her to the [facility] today but [facility] has notified us that they are not excepting any more Covid patients as of now. We have 5 Covid patients in our facility which puts us at maximum capacity. The home health agencies are declining to care for her until her 2-week quarantine is over. [facility]. The only home health agency that is seeing Covid patients in our area is our own., Shaina fired our home health sometime ago and so [facility] has declined to accept her as a patient. It would not be safe to send her back to her home unattended. She has no family. She has no friends that can come and stay with her. Therefore, for now she will remain here. Her chest x-ray this morning when accounting for technique appears about the same as the admission chest. Her CRP is elevated at 8.7. The rest of her lab is still pending this morning. Objective - Review of Systems Generalized/Overall Review: Reports: Weakness EENTM: Reports: No Symptoms Reported Respiratory: Reports: Cough, Shortness of Breath Cardiac: Reports: No Symptoms Reported Abdominal: Reports: No Symptoms Reported Genitourinary Symptoms: Reports: No Symptoms Reported Musculoskeletal Complaints: Reports: No Symptoms Reported Neurological: Reports: No Symptoms Reported Skin: Reports: No Symptoms Reported Endocrine: Reports: No Symptoms Reported - Vitals Vitals: Last Vital Signs Temp 37 C 04/01/20 09:57 Pulse 88 04/01/20 09:57 Resp 18 04/01/20 09:57 BP 134/72 04/01/20 09:57 Pulse Ox 96 04/01/20 09:57 - Abnormal Lab Findings Abnormal Lab Findings: Abnormal Lab Results 04/01/20 Range/Units 10:21 C-Reactive Prot, Quant 8.7 H (0.0-0.9) mg/dL - EKG/Xray Findings XRAY: chest Interpretation: Reviewed by me - Exam Constitutional: Present: Alert, Oriented x3, Cooperative, Well developed, Well nourished, Mild distress, Elderly ENT Exam: Present: normal ENT inspection, hearing grossly normal, pharynx normal, TMs normal, hard of hearing Neck: Present: non-tender, supple, normal inspection, trachea midline, limited range of motion Breasts: Present: Exam deferred Respiratory: Present: chest non-tender, lungs clear, normal breath sounds, no respiratory distress, no accessory muscle use, respiratory distress, decreased breath sounds Cardiovascular/Chest: Present: normal peripheral pulses, regular rate, rhythm, no chest tenderness, no edema, no gallop, no JVD, no murmur, no rub Abdomen: Present: Normal bowel sounds, soft, nontender, nondistended /Rectal: Present: Exam deferred Extremity: Present: normal range of motion, non-tender, normal inspection, no pedal edema, no calf tenderness, normal capillary refill Skin Exam: Present: normal color, warm/dry, no cyanosis Lymphatic: Present: no adenopathy Neurologic: 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 Continue current therapy. 2. Have physical therapy work with her daily for limb strengthening and balance training 3. Repeat lab again tomorrow morning - Problems/Diagnosis (1) Pneumonia due to COVID-19 virus Problem: Acute (2) Elevated d-dimer Problem: Acute (3) COVID-19 virus infection Problem: Acute (4) Fall at home Problem: Acute Qualifiers: Encounter type: subsequent encounter Qualified Code(s): W19.XXXD - Unspecified fall, subsequent encounter; Y92.009 - Unspecified place in unspecified non-institutional (private) residence as the place of occurrence of the external cause (5) Generalized weakness Problem: Acute
[2020-04-01] MEDS: MELATONIN 3,000 MCG TABLET PO SCH (21:00)
[2020-04-01] MEDS: ENOXAPARIN SODIUM 40 MG/0.4 ML SYRG SC SCH (21:01)
[2020-04-01] MEDS: AZITHROMYCIN 250 MG TABLET PO SCH (21:01)
[2020-04-01] MEDS: INSULIN GLARGINE,HUM.REC.ANLOG 100 UNITS/ML VIAL SC SCH (21:02)
[2020-04-01] MEDS: ACETAMINOPHEN 325 MG TABLET PO PRN (21:34)
[2020-04-02 06:37] LABS: Hematocrit 38.2 % (37.0-47.0); Hemoglobin 11.8 gm/dL (12.5-16.0); Mean Cell Volume 90.7 fl (78-100); Mean Corpuscular Hgb Conc 30.9 g/dl (32-36); Mean Platelet Volume 9.9 fl (8-12.5); Neutrophil # 5.7 K/mm3 (1.3-6.0); Neutrophil % 80.9 % (42-75.0); Platelet Count 254 K/mm3 (150-450); Red Blood Count 4.21 M/mm3 (4.2-5.4); Red Cell Distribution Width 16.4 % (11.5-14.0); White Blood Count 7.1 K/mm3 (4.0-10.5)
[2020-04-02 07:03] LABS: Albumin * 2.9 gm/dl (3.4-5.0); Anion Gap 11.7 mmol/L (6.8-13.8); BUN/Creatinine Ratio 37.1 (9.0-21.6); Bilirubin, Total 0.4 mg/dL (0.0-1.1); Ca. Corrected For Albumin 9.5 mg/dL (8.4-10.2); Calcium * 8.9 mg/dL (7.9-10.9); Potassium 3.7 mmol/L (3.4-4.6); Total Protein 7.4 gm/dL (6.2-8.2)
[2020-04-02] MEDS: LEVOTHYROXINE SODIUM 75 MCG TABLET PO SCH (07:25)
[2020-04-02] MEDS: PANTOPRAZOLE SODIUM 20 MG TABLET.DR PO SCH (07:25)
[2020-04-02] MEDS: IPRATROPIUM BROMIDE NS SCH (09:02)
[2020-04-02] MEDS: DEXAMETHASONE 2 MG, DEXAMETHASONE 4 MG PO SCH ×2 (09:03)
[2020-04-02] MEDS: FERROUS SULFATE 325 MG TABLET PO SCH (09:03)
[2020-04-02] MEDS: DONEPEZIL HCL 10 MG TABLET PO SCH (09:03)
[2020-04-02] MEDS: ASPIRIN 81 MG TABLET.DR PO SCH (09:03)
[2020-04-02] MEDS: CALCIUM CARBONATE/VITAMIN D3 1 TAB TABLET PO SCH (09:03)
[2020-04-02] MEDS: BETA-CAROTENE(A) W-C , E/MIN 1 TAB TABLET PO SCH (09:03)
[2020-04-02] MEDS: traMADol HCL 50 MG TABLET PO SCH (09:03)
[2020-04-02] MEDS: FOLIC ACID 1 MG TABLET PO SCH (09:03)
[2020-04-02] MEDS: LORATADINE 10 MG TABLET PO SCH (09:03)
[2020-04-02] MEDS: SERTRALINE HCL 50 MG TABLET PO SCH (09:04)
[2020-04-02] MEDS: amLODIPine BESYLATE 10 MG TABLET PO SCH (09:04)
[2020-04-02] MEDS: GABAPENTIN 100 MG CAPSULE PO SCH (09:04)
[2020-04-02] MEDS: QUEtiapine FUMARATE 100 MG TABLET PO SCH (09:04)
[2020-04-02] MEDS: NYSTATIN 15 APPL BTL TP SCH (09:05)
[2020-04-02] MEDS: TIMOLOL MALEATE/DORZOLAM HCL 100 DROP BTL OP SCH (09:05)
[2020-04-02 13:05] VITALS: BP 160/48
== END 2020-04-02 12:15 | disposition home health service (06) | DRG 177 ==
LOC: SCU 13:02 → ER 13:02 → SCU 15:59
PROVIDERS: ADMIT Family Medicine; ATTEND Family Medicine
DX: U07.1 COVID-19; I11.0 Hypertensive heart disease with heart failure; Z68.29 Body mass index [BMI] 29.0-29.9, adult; E78.5 Hyperlipidemia, unspecified; W19.XXXA Unspecified fall, initial encounter; N17.9 Acute kidney failure, unspecified; S70.12XA Contusion of left thigh, initial encounter; Z79.4 Long term (current) use of insulin; S00.83XA Contusion of other part of head, initial encounter; E66.01 Morbid (severe) obesity due to excess calories; K21.9 Gastro-esophageal reflux disease without esophagitis; S80.12XA Contusion of left lower leg, initial encounter; R53.1 Weakness; I50.33 Acute on chronic diastolic (congestive) heart failure; E11.9 Type 2 diabetes mellitus without complications; J44.9 Chronic obstructive pulmonary disease, unspecified; J12.89 Other viral pneumonia; S40.022A Contusion of left upper arm, initial encounter

== ENCOUNTER 2020-04-07 16:57 | Inpatient (IN) ==
[2020-04-07] MEDS ORDERED: ALBUTEROL SULFATE/IPRATROPIUM 3 ML NEBU IH ONE (17:23)
[2020-04-07] MEDS ORDERED: ONDANSETRON HCL/PF 2 MG/ML VIAL IV ONE (17:31)
[2020-04-07] MEDS ORDERED: ONDANSETRON HCL/PF 2 MG/ML VIAL ONE (17:32)
[2020-04-07 17:36] LABS: Hematocrit 37.9 % (37.0-47.0); Hemoglobin 11.8 gm/dL (12.5-16.0); Mean Cell Volume 90.5 fl (78-100); Mean Corpuscular Hemoglobin 28.2 pg (27-31); Mean Corpuscular Hgb Conc 31.1 g/dl (32-36); Mean Platelet Volume 9.9 fl (8-12.5); Platelet Count 385 K/mm3 (150-450); Red Blood Count 4.19 M/mm3 (4.2-5.4); Red Cell Distribution Width 17.3 % (11.5-14.0)
[2020-04-07 17:45] LABS: Total Cells Counted 100
[2020-04-07 17:55] LABS: Troponin I Less than 0.017 ng/mL (0.00-0.10)
[2020-04-07 17:57] LABS: Partial Thrombolplastin Time 24.7 Seconds (24-32)
[2020-04-07 18:01] LABS: ALT 44 U/L (19-67); AST 52 U/L (0-48); Albumin * 2.5 gm/dl (3.4-5.0); Alkaline Phosphatase * 198 U/L (50-170); Anion Gap 12.3 mmol/L (6.8-13.8); BNP * 1796 pg/mL (5-550); BUN/Creatinine Ratio 20.7 (9.0-21.6); Bilirubin, Total 0.4 mg/dL (0.0-1.1); Blood Urea Nitrogen 24 mg/dL (3-23); Ca. Corrected For Albumin 9.9 mg/dL (8.4-10.2); Chloride 98 mmol/L (97-106); Glucose * 173 mg/dL (70-110); Potassium 4.3 mmol/L (3.4-4.6); Sodium 132 mmol/L (132-142); Total Protein 7.1 gm/dL (6.2-8.2)
[2020-04-07 18:03] LABS: Lymphocyte 3 % (20-51); Monocyte 3 % (0-9); Neutrophil 94 % (42-75); Neutrophil # 14.1 K/mm3 (1.3-6.0)
[2020-04-07 18:06] LABS: Anisocytosis 2+; Prothrombin Time (Patient) 10.8 Seconds (9.1-10.7)
[2020-04-07 18:07] LABS: Hypersegmented Polys Trace; Platelet Estimate Normal (NORMAL)
[2020-04-07] MEDS ORDERED: NORMAL SALINE 500 ML IV ONE (18:07)
[2020-04-07 18:27] LABS: INR 1.09 INR (0.92-1.08)
[2020-04-07] MEDS ORDERED: ACETAMINOPHEN 1,000 MG/100 ML BTL IV ONE (18:50)
--- NOTE | 2020-04-07 19:00 | ERNOTE ---
Dyspnea - Date Date of Service: 04/07/20 - General Presenting Symptoms: shortness of breath Time Seen by Provider: 04/07/20 17:08 Source: patient, RN/MD, EMS Exam Limitations: clinical condition - Immun/Allergies/Home Medications Immunizations: IMMUNIZATION HX Immunizations Up to Date Yes History of Influenza Vaccine Yes Hx Pneumococcal Vaccination Yes Allergies/Adverse Reactions: Allergies No Known Allergies Allergy (Verified 03/30/20 17:06) Home Medications: HOME MEDICATIONS Menthol [Icy Hot] 1 spray TP BID PRN 09/28/17 [Last Taken Unknown] pen needle, diabetic 32 gauge x 10/05" See Dose Instructions .ROUTE .MEDSUPPLY #100 ea 01/25/18 [Last Taken Unknown] acetaminophen 325 mg tablet 650 mg PO Q4H PRN #100 tab 02/26/19 [Last Taken Unknown] Sennosides [Senna Laxative] 1 tab PO BID PRN 04/11/19 [Last Taken Unknown] nystatin 100,000 unit/gram topical powder 1 applic TOPICAL BID #30 g 04/12/19 [Last Taken Unknown] blood sugar diagnostic See Rx Instructions .ROUTE .COMPLEX #100 strip 06/15/19 [Last Taken Unknown] aspirin 81 mg tablet,delayed release See Rx Instructions .ROUTE .COMPLEX #30 tab 06/20/19 [Last Taken Unknown] ferrous sulfate 325 mg (65 mg iron) tablet 325 mg PO DAILY #30 tab 06/20/19 [Last Taken Unknown] melatonin 3 mg tablet 5 mg PO HS #30 tab 06/20/19 [Last Taken Unknown] omega-3 fatty acids 1,000 mg capsule 1,000 mg PO 1200 #30 cap 06/20/19 [Last T aken Unknown] vit A 1,000 unit-C 200 mg-E 60 unit-lutein 2 mg and minerals tablet 1 tab PO BID #60 tab 06/20/19 [Last Taken Unknown] amlodipine 10 mg tablet 10 mg PO DAILY #30 tab 06/22/19 [Last Taken Unknown] albuterol sulfate 90 mcg/actuation aerosol inhaler 1 puff IH QID PRN #18 g 07/26/19 [Last Taken Unknown] insulin glargine 100 unit/mL (3 mL) subcutaneous pen 24 unit SUBCUT HS #15 ml MDD 24 units 09/13/19 [Last Taken Unknown] dorzolamide 22.3 mg-timolol 6.8 mg/mL eye drops 1 drp OP BID ml 09/19/19 [Last Taken Unknown] methotrexate sodium 2.5 mg tablet 12.5 mg PO QWEEK #20 tab 09/21/19 [Last Taken Unknown] folic acid 1 mg tablet See Rx Instructions .ROUTE .COMPLEX #30 unknown measurement unit code: tablet 12/19/19 [Last Taken Unknown] donepezil 10 mg tablet 10 mg PO DAILY #30 tab 12/26/19 [Last Taken Unknown] Nitrofurantoin/Nitrofuran Mac [Macrobid] 100 mg PO Q12H #20 cap 01/03/20 [Last Taken Unknown] calcium carbonate 600 mg (1,500 mg)-vitamin D3 400 unit tablet 1 tab PO BID #0.1 tab 01/17/20 [Last Taken Unknown] gabapentin 100 mg capsule See Rx Instructions .ROUTE .COMPLEX #90 unknown measurement unit code: capsule 01/21/20 [Last Taken Unknown] sulfamethoxazole 800 mg-trimethoprim 160 mg tablet 1 tab PO BID #14 tab 02/15/20 [Last Taken Unknown] tramadol 50 mg tablet 50 mg PO TID #90 tab 03/19/20 [Last Taken Unknown] cetirizine 10 mg tablet 10 mg PO DAILY #30 tab 03/20/20 [Last Taken Unknown] ipratropium bromide 42 mcg (0.06 %) nasal spray 2 spray MOOKIE QID #15 ml 03/25/20 [Last Taken Unknown] Levothyroxine Sodium [Synthroid] 75 mcg PO QAM 03/30/20 [Last Taken Unknown] Pantoprazole Sodium 20 mg PO DAILY 03/30/20 [Last Taken Unknown] QUEtiapine FUMARATE [Seroquel] 100 mg PO DAILY 03/30/20 [Last Taken Unknown] Sertraline HCl [Zoloft] See Rx Instructions PO QAM 03/30/20 [Last Taken Unknown] Acetaminophen [Tylenol] 650 mg PO Q4H PRN tab 03/31/20 [Last Taken Unknown] Enoxaparin Sodium [Lovenox] 40 mg SC Q24H disp.syrin 03/31/20 [Last Taken Unknown] Pantoprazole Sodium [Protonix] 20 mg PO BID #60 tablet.dr 03/31/20 [Last Taken Unknown] guaiFENesin [Robitussin] 100 mg PO Q4H PRN syrup 03/31/20 [Last Taken Unknown] Azithromycin 250 mg PO DAILY #1 tab 04/02/20 [Last Taken Unknown] Dexamethasone 6 mg PO DAILY #4 tab 04/02/20 [Last Taken Unknown] prednisone 1 mg tablet 2 mg PO DAILY #180 tab 04/04/20 [Last Taken Unknown] - History of Present Illness Narrative: The patient is a 84 year old female who presents via [facility] with shortness of breath which has been present present since noted this afternoon by family. There are associated symptoms of fatigue and intermittent altered mentation. The patient denies pain. There are no alleviating factors. There are aggravating factors of activity. Previous treatments have included: Prednisone, Lovenox and Azithromycin. The past medical history includes: asthma, COPD, DM, HLD, hypothyroid, CVA, CHF and GERD. The social history is positive for former smoker. The patient has had no known ill contacts. Patient was recently discharged from inpatient stay associated with COVID +, COVID pneumonia, CHF, DM and acute renal insufficiency. Patient was discharged home on 03/31/20 and then had telehealth follow up in which she reported continued improvement to condition. This evening family checked on patient and found her to have increased work of breathing and felt her to be confused. Patient upon arrival via EMS on 15L/NRB, patient upon arrival was 74% RA by EMS. Patient attempted to be moved to nasal cannula and unable to maintain SpO2 >85%, switched to ventimask with SpO2 85%. Unable to keep SpO2 >90% on ventimask, changes to NRB 15L/NC. Plan to switch to high flow oxygen and will continue to monitor. Patient received full 10 day dosing for dexamethasone and azithromycin then switched to oral prednisone. Patient was initially given Lovenox SQ associated with elevated D-Dimer but I do not see that it was continued. Patient upon arrival having difficulty communicating associated with dry mouth and dried secretions holding lips to teeth and poor forming of words with dry tongue. Review of Systems - Narrative Narrative: Difficulty to obtain ROS associated with patient condition. - Review of Systems Constitutional: Present: chills, fatigue Respiratory: Present: shortness of breath, cough Cardiology: Absent: chest pain Gastrointestinal/Abdominal: Present: eating less, drinking less. Absent: vomiting, diarrhea Medical History (Last Reviewed 04/07/20 @ 19:43 by SANTO Biswas) Chronic pain (Chronic) Elevated sed rate (Acute) Polyarthralgia (Chronic) Low back pain (Chronic) Insomnia (Acute) GERD (gastroesophageal reflux disease) (Chronic) Healing pressure ulcer, stage III (Resolved) Healing pressure ulcer stage III (Acute) L. heal Intractable back pain (Acute) Neuropathic pain of right hand (Chronic) Low back pain radiating to both legs (Acute) Onset 2 weeks ago. Osteoarthritis of left knee (Chronic) Instability of left knee joint (Chronic) Right flank pain (Acute) R. flank pain radiates into the R. groin. No hx. of kidney stones. No fever or chills.1. UA Herpes zoster (Acute) Generalized weakness (Acute) Neck pain (Acute) CHF (congestive heart failure) Asthma COPD (chronic obstructive pulmonary disease) Diabetes mellitus, type II Diarrhea Onset Date: ~01/06/12 Fatigue Hyperlipidemia Hyperthyroidism Lumbar radiculopathy Obesity Pyriformis syndrome right Sciatica Urinary incontinence Blurred vision Emphysema lung Hip pain Ischemic stroke Pneumonia Postmenopausal atrophic vaginitis Onset Date: ~01/12/16 Psoriasis age 17 Rheumatic fever Skin lesion Onset Date: ~10/03/12 left worship Vaginal pain Onset Date: ~01/12/16 Surgical History: Surgical History (Last Reviewed 04/07/20 @ 19:43 by SANTO Biswas) History of back surgery Onset Date: ~04/16/19 [facility] [place] Cataract Onset Date: ~07/04/07 bilateral, 06/20/07 and 07/04/07 H/O adenoidectomy Onset Date: ~1949 H/O arthroscopic knee surgery left H/O breast surgery left H/O cardiac catheterization Onset Date: ~08/2002 H/O foot surgery left H/O vaginal hysterectomy Onset Date: ~1964 H/O ventral hernia repair Onset Date: ~1998 [place] right lower quad. History of YAG laser capsulotomy of lens Onset Date: ~04/07/10 bilateral, Dr. Hooper 08/15/07 04/07/10 History of appendectomy Onset Date: ~1942 History of tonsillectomy Onset Date: ~1949 Hx of cholecystectomy Onset Date: ~1966 History of esophagogastroduodenoscopy (EGD) Onset Date: ~09/04/[address] ramirez hiatal hernia, gastritis. Family History: Family History (Last Reviewed 04/07/20 @ 19:43 by SANTO Biswas) Brother Diabetes Cancer kidney, bladder and prostate. Brother Diabetes Father , age 80 Cancer lung Mother , age 76 Hypertension CVA (cerebral vascular accident) Sister Alive and well Sister Hepatitis C Sister Parkinsons Son Myocardial infarction Son Cancer brain cancer Social History: (Last Reviewed 04/07/20 @ 19:43 by SANTO Biswas) Social History: detention: No Marital status: / lives independently: Yes household members: none number of children: 5 current occupational status: retired Highest level of school completed/degree received: 7th grade Service: No Tobacco: Smoking Status: Former smoker Alcohol: alcohol intake: former Substance Use: substance use type: does not use Dietary Habits: caffeine: No caffeine comment: current every day Physical Exam - Physical Exam General Appearance: Present: wd/wn, alert, moderate distress Head Exam: Present: normal inspection, no evidence of injury Eye Exam: Normal inspection: bilateral, PERRL: bilateral, EOMI: bilateral Ears, Nose, Throat: Present: dry mucous membranes, other - tongue cracked, dried secretions, gums stuck to teeth, dentures Neck: Present: normal inspection Respiratory: Present: accessory muscle use, decreased breath sounds, wheezing Cardiovascular/Chest: Present: tachycardia. Absent: JVD Gastrointestinal/Abdominal: Present: normal bowel sounds, nontender, nondistended, soft, no organomegaly Extremity Exam: Present: no edema Neurological Exam: Present: alert, oriented, no motor/sensory deficits. Absent: motor weakness Skin Exam: Present: normal color, warm/dry Progress - Date and Time Seen: Date and Time: 04/07/20 18:[address] patient on high flow oxygen, repeat ABG in 1 hour. 04/07/20 19:20 Minimal interval change to ABG, will plan for placement on Bipap for increased o xygen pressure due to presumed poor oxygenation associated with inflammation. WBC elevation likely associated with steroid use but due to worsening condition, increased peripheral markings and slight elevation to procalcitonin will administer Levaquin for potential developing bacterial pneumonia. 04/07/20 20:39 Case was reviewed with , will initiate treatment with Lovenox 1mg/kg due to elevated ddimer and subtherapeutic INR. Will repeat ABG 1 hour after placement of Bipap. Patient appears to be resting more comfortably. Will admit for hypoxia, COVID, pneumonia. - Results and Orders Patient's Lab Results:: I have reviewed the patient's lab results. - Vital Signs Patient's Vital Signs:: I have reviewed the patient's vital signs. Vital Signs: Vital Signs 04/07/20 16:58 04/07/20 17:10 04/07/20 17:33 Temperature 37.7 C Pulse Rate 110 H 119 H 121 H Respiratory Rate 20 29 H 28 H Blood Pressure 131/65 131/85 O2 Sat by Pulse Oximetry 95 89 L 85 L 04/07/20 17:51 04/07/20 18:13 Temperature Pulse Rate 118 H Respiratory Rate 27 H Blood Pressure 176/61 H O2 Sat by Pulse Oximetry 90 L 95 - EKG EKG #1 EKG: NSR - tachycardia rate 108, nonspecific ST T wave changes EKG read: Reviewed by me - X-Ray X-Ray #1 X-Ray: chest Interpretation: Reviewed by me X-ray Comments: IMPRESSION: Interval increase in the bilateral heterogeneous opacities. Electronically signed by Jenny Christy D.O.. - Progress/Reassessment Chief Complaint: Dyspnea Departure Clinical Impression: COVID-19, Respiratory distress Pneumonia Qualifiers: Pneumonia type: due to unspecified organism Laterality: bilateral Lung location: unspecified part of lung Qualified Code(s): J18.9 - Pneumonia, unspecified organism - Departure Disposition: Still a patient Condition: Stable
[2020-04-07] MEDS ORDERED: LEVOFLOXACIN IN DEXTROSE 5 % 750 MG/150 ML BAG IV ONE (19:35)
[2020-04-07] MEDS ORDERED: ENOXAPARIN SODIUM 100 MG/ML SYRG SC SCH (20:45)
[2020-04-07 20:48] LABS: Urine Bilirubin Negative (NEGATIVE); Urine Blood 250 /ul (NEGATIVE); Urine Ketone Negative (NEGATIVE); Urine Nitrite Negative (NEGATIVE); Urine Protein >=300 mg/dL (NEGATIVE); Urine Urobilinogen Normal (NORMAL); Urine pH 5.5 pH (5.0-7.0)
[2020-04-07 21:03] LABS: Urine Appearance Cloudy (CLEAR); Urine Color Yellow
[2020-04-07 21:04] LABS: Urine Bacteria 4+; Urine Yeast TRACE
[2020-04-07] MEDS ORDERED: NORMAL SALINE 1,000 ML IV ONE (21:19)
[2020-04-08] MEDS: LORazepam 2 MG/ML DISP.SYRIN IV PRN ×4 (04:02→21:54)
[2020-04-08] MEDS ORDERED: ENOXAPARIN SODIUM 80 MG/0.8 ML DISP.SYRIN SC SCH (10:00)
--- NOTE | 2020-04-08 19:31 | HP ---
Chief Complaint - Chief Complaint Date of Service: 04/08/20 Time of Service: 12:20 Chief Complaint: Weakness, shortness of breath History of Present Illness: The patient is a 84 year old female who presents via [facility] with shortness of breath which has been present present since noted this afternoon by family. There are associated symptoms of fatigue and intermittent altered mentation. The patient denies pain. There are no alleviating factors. There are aggravating factors of activity. Previous treatments have included: Prednisone, Lovenox and Azithromycin. The past medical history includes: asthma, COPD, DM, HLD, hypothyroid, CVA, CHF and GERD. The social history is positive for former smoker. The patient has had no known ill contacts. Patient was recently discharged from inpatient stay associated with COVID +, COVID pneumonia, CHF, DM and acute renal insufficiency. Patient was discharged home on 03/31/20 and then had telehealth follow up in which she reported continued improvement to condition. This evening family checked on patient and found her to have increased work of breathing and felt her to be confused. Patient upon arrival via EMS on 15L/NRB, patient upon arrival was 74% RA by EMS. Patient attempted to be moved to nasal cannula and unable to maintain SpO2 >85%, switched to ventimask with SpO2 85%. Unable to keep SpO2 >90% on ventimask, changes to NRB 15L/NC. Plan to switch to high flow oxygen and will continue to monitor. Patient received full 10 day dosing for dexamethasone and azithromycin then switched to oral prednisone. Patient was initially given Lovenox SQ associated with elevated D-Dimer but I do not see that it was continued. Patient upon arrival having difficulty communicating associated with dry mouth and dried secretions holding lips to teeth and poor forming of words with dry tongue. Per my exam and conversation with her she is just weak and tired. I later learned she has spoken with nurses about comfort measures but she did not mention that to me at all. I will discuss that with her again tomorrow morning. Tomorrow she will be 10 days from being first tested and I believe we should retest her tomorrow to see if she is still Covid detected. This readmission is probably reexacerbation of the inflammatory phase of this COVID-19 virus but it is not proven. IV steroids will be restarted. Anticoagulation also. Medical History (Last Reviewed 04/07/20 @ 21:54 by Kathia Thompson RN) Chronic pain (Chronic) Elevated sed rate (Acute) Polyarthralgia (Chronic) Low back pain (Chronic) Insomnia (Acute) GERD (gastroesophageal reflux disease) (Chronic) Healing pressure ulcer, stage III (Resolved) Healing pressure ulcer stage III (Acute) L. heal Intractable back pain (Acute) Neuropathic pain of right hand (Chronic) Low back pain radiating to both legs (Acute) Onset 2 weeks ago. Osteoarthritis of left knee (Chronic) Instability of left knee joint (Chronic) Right flank pain (Acute) R. flank pain radiates into the R. groin. No hx. of kidney stones. No fever or chills.1. UA Herpes zoster (Acute) Generalized weakness (Acute) Neck pain (Acute) CHF (congestive heart failure) Asthma COPD (chronic obstructive pulmonary disease) Diabetes mellitus, type II Diarrhea Onset Date: ~01/06/12 Fatigue Hyperlipidemia Hyperthyroidism Lumbar radiculopathy Obesity Pyriformis syndrome right Sciatica Urinary incontinence Blurred vision Emphysema lung Hip pain Ischemic stroke Pneumonia Postmenopausal atrophic vaginitis Onset Date: ~01/12/16 Psoriasis age 17 Rheumatic fever Skin lesion Onset Date: ~10/03/12 left judaism Vaginal pain Onset Date: ~01/12/16 Surgical History: Surgical History (Last Reviewed 04/07/20 @ 21:54 by Kathia Thompson RN) History of back surgery Onset Date: ~04/16/19 [facility] Cataract Onset Date: ~07/04/07 bilateral, 06/20/07 and 07/04/07 H/O adenoidectomy Onset Date: ~1949 H/O arthroscopic knee surgery left H/O breast surgery left H/O cardiac catheterization Onset Date: ~08/2002 H/O foot surgery left H/O vaginal hysterectomy Onset Date: ~1964 H/O ventral hernia repair Onset Date: ~1998 [place] right lower quad. History of YAG laser capsulotomy of lens Onset Date: ~04/07/10 bilateral, Dr. Hooper 08/15/07 04/07/10 History of appendectomy Onset Date: ~1942 History of tonsillectomy Onset Date: ~1949 Hx of cholecystectomy Onset Date: ~1966 History of esophagogastroduodenoscopy (EGD) Onset Date: ~09/04/[address] ramirez hiatal hernia, gastritis. Family History: Family History (Last Reviewed 04/07/20 @ 21:54 by Kathia Thompson RN) Brother Diabetes Cancer kidney, bladder and prostate. Brother Diabetes Father , age 80 Cancer lung Mother , age 76 Hypertension CVA (cerebral vascular accident) Sister Alive and well Sister Hepatitis C Sister Parkinsons Son Myocardial infarction Son Cancer brain cancer Social History: (Last Reviewed 04/07/20 @ 21:54 by Kathia Thompson RN) Social History: fdc: No Marital status: / lives independently: Yes household members: none number of children: 5 current occupational status: retired Highest level of school completed/degree received: 7th grade Service: No Tobacco: Smoking Status: Former smoker Alcohol: alcohol intake: former Substance Use: substance use type: does not use Dietary Habits: caffeine: No caffeine comment: current every day Review Of Systems (GEN) - Review of Systems Generalized/Overall Review: Present: Weakness, Malaise, Fatigue EENTM: Present: No Symptoms Reported Respiratory: Present: Cough, Shortness of Breath Cardiac: Present: No Symptoms Reported Abdominal: Present: No Symptoms Reported Genitourinary: Present: No Symptoms Reported Musculoskeletal: Present: No Symptoms Reported Neurological: Present: No Symptoms Reported Skin: Present: No Symptoms Reported Endocrine: Present: No Symptoms Reported Immunizations: IMMUNIZATION HX Immunizations Up to Date Yes History of Influenza Vaccine Yes Hx Pneumococcal Vaccination Yes Allergies/Adverse Reactions: Allergies Allergy/AdvReac Type Severity Reaction Status Date / Time No Known Allergies Allergy Verified 03/30/20 17:06 Home Medications: HOME MEDICATIONS pen needle, diabetic 32 gauge x 5/16" See Dose Instructions .ROUTE .MEDSUPPLY #100 ea 01/25/18 [Last Taken Unknown] blood sugar diagnostic See Rx Instructions .ROUTE .COMPLEX #100 strip 06/15/19 [Last Taken Unknown] ferrous sulfate 325 mg (65 mg iron) tablet 325 mg PO DAILY #30 tab 06/20/19 [Last Taken Unknown] melatonin 3 mg tablet 5 mg PO HS #30 tab 06/20/19 [Last Taken Unknown] omega-3 fatty acids 1,000 mg capsule 1,000 mg PO 1200 #30 cap 06/20/19 [Last Taken Unknown] vit A 1,000 unit-C 200 mg-E 60 unit-lutein 2 mg and minerals tablet 1 tab PO BID #60 tab 06/20/19 [Last Taken Unknown] amlodipine 10 mg tablet 10 mg PO DAILY #30 tab 06/22/19 [Last Taken Unknown] albuterol sulfate 90 mcg/actuation aerosol inhaler 1 puff IH QID PRN #18 g 07/26/19 [Last Taken Unknown] insulin glargine 100 unit/mL (3 mL) subcutaneous pen 24 unit SUBCUT HS #15 ml MDD 24 units 09/13/19 [Last Taken Unknown] dorzolamide 22.3 mg-timolol 6.8 mg/mL eye drops 1 drp RIGHTEYE BID ml 09/19/19 [Last Taken Unknown] Nitrofurantoin/Nitrofuran Mac [Macrobid] 100 mg PO Q12H #20 cap 01/03/20 [Last Taken Unknown] calcium carbonate 600 mg (1,500 mg)-vitamin D3 400 unit tablet 1 tab PO BID #0.1 tab 01/17/20 [Last Taken Unknown] cetirizine 10 mg tablet 10 mg PO DAILY #30 tab 03/20/20 [Last Taken Unknown] ipratropium bromide 42 mcg (0.06 %) nasal spray 2 spray MOOKIE QID #15 ml 03/25/20 [Last Taken Unknown] Levothyroxine Sodium [Synthroid] 75 mcg PO QAM 03/30/20 [Last Taken Unknown] QUEtiapine FUMARATE [Seroquel] 100 mg PO DAILY 03/30/20 [Last Taken Unknown] Acetaminophen [Tylenol] 650 mg PO Q4H PRN tab 03/31/20 [Last Taken Unknown] Pantoprazole Sodium [Protonix] 20 mg PO BID #60 tablet.dr 03/31/20 [Last Taken Unknown] guaiFENesin [Robitussin] 100 mg PO Q4H PRN syrup 03/31/20 [Last Taken Unknown] Dexamethasone 6 mg PO DAILY #4 tab 04/02/20 [Last Taken Unknown] prednisone 1 mg tablet 2 mg PO DAILY #180 tab 04/04/20 [Last Taken Unknown] Aspirin [Aspirin EC] 81 mg PO DAILY 04/08/20 [Last Taken Unknown] Dicyclomine HCl 10 mg PO TID PRN 04/08/20 [Last Taken Unknown] Donepezil HCl 10 mg PO HS 04/08/20 [Last Taken Unknown] Folic Acid 1 mg PO DAILY 04/08/20 [Last Taken Unknown] Gabapentin 100 mg PO TID 04/08/20 [Last Taken Unknown] Sertraline HCl [Zoloft] 50 mg PO DAILY 04/08/20 [Last Taken Unknown] traMADol HCL [Tramadol HCl] 50 mg PO 0800,1400,199904/08/20 [Last Taken Unknown] Exam - Exam Vital Signs: Vital Signs - Last Taken Temp 38.1 C H 04/08/20 17:53 Pulse 93 04/08/20 17:53 Resp 20 04/08/20 17:53 BP 187/74 H 04/08/20 17:53 Pulse Ox 90 L 04/08/20 17:53 Constitutional: Present: Alert, Oriented x3, Cooperative, Well developed, Well nourished, No distress ENT Exam: Present: normal ENT inspection, pharynx normal, TMs normal, hard of hearing Eye Exam: bilateral eye: normal inspection, PERRL, EOMI Neck: Present: non-tender, full range of motion, supple, normal inspection Back Exam: Present: normal inspection, no CVA tenderness, no vertebral tenderness Respiratory: Present: chest non-tender, lungs clear, normal breath sounds, no respiratory distress, no accessory muscle use Cardiovascular/Chest: Present: normal peripheral pulses, regular rate, rhythm, no chest tenderness, no edema, no gallop, no JVD, no murmur, no rub Peripheral Pulses: carotid (R): 2+, carotid (L): 2+, radial (R): 2+, radial (L): 2+ Abdomen: Present: Normal bowel sounds, soft, nontender, nondistended, no rebound tenderness, no hepatospenomegaly, no masses /Rectal: Present: Exam deferred Extremity: Present: normal range of motion, non-tender, normal inspection, no pedal edema, no calf tenderness, normal capillary refill Skin Exam: Present: normal color, warm/dry, no cyanosis Lymphatic: Present: no adenopathy Neurologic: Present: 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 She is a little apraxic but not ataxic. Thoughts: Present: normal thought pattern, no apparent hallucination Diagnostic Studies: Abnormal Lab Results 04/07/20 04/07/20 04/07/20 Range/Units 17:30 19:20 20:30 D-Dimer 1.81 H (0.19-0.49) ug/mL pCO2 29.8 L (32.0-45.0) mmHg pO2 51.5 L (83.0-108.0) mmHg ABG pH 7.48 H (7.35-7.45) ABG O2 Sat (Measured) 89.5 L (94.0-98.0) % Urine Protein >=300 H (NEGATIVE) mg/dL Urine Blood 250 H (NEGATIVE) /ul Prot Sulfosalicylic Acd 4+ H (0) mg/dL Ur Leukocyte Esterase 75 H (NEGATIVE) /ul Urine RBC 5-10 H (0-5) /hpf Urine WBC 5-10 H (0-5) /hpf Urine Bacteria 4+ H (NONE) 04/07/20 Range/Units 21:20 D-Dimer (0.19-0.49) ug/mL pCO2 31.4 L (32.0-45.0) mmHg pO2 (83.0-108.0) mmHg ABG pH 7.48 H (7.35-7.45) ABG O2 Sat (Measured) (94.0-98.0) % Urine Protein (NEGATIVE) mg/dL Urine Blood (NEGATIVE) /ul Prot Sulfosalicylic Acd (0) mg/dL Ur Leukocyte Esterase (NEGATIVE) /ul Urine RBC (0-5) /hpf Urine WBC (0-5) /hpf Urine Bacteria (NONE) Microbiology 04/07/20 17:48 Blood Culture - Preliminary Blood NO GROWTH 24 HOURS 04/07/20 17:30 Blood Culture - Preliminary Blood NO GROWTH 24 HOURS 04/07/20 20:30 Urine Culture - Preliminary Urine,Clean Catch No Growth Laboratory Results WBC 15.0 K/mm3 (4.0-10.5) H 04/07/20 17:30 RBC 4.19 M/mm3 (4.2-5.4) L 04/07/20 17:30 Hgb 11.8 gm/dL (12.5-16.0) L 04/07/20 17:30 Hct 37.9 % (37.0-47.0) 04/07/20 17:30 MCV 90.5 fl (78-100) 04/07/20 17:30 MCH 28.2 pg (27-31) 04/07/20 17:30 MCHC 31.1 g/dl (32-36) L 04/07/20 17:30 RDW 17.3 % (11.5-14.0) H 04/07/20 17:30 Plt Count 385 K/mm3 (150-450) 04/07/20 17:30 MPV 9.9 fl (8-12.5) 04/07/20 17:30 Neutrophils % (Manual) 94 % (42-75) H 04/07/20 17:30 Lymphocytes % (Manual) 3 % (20-51) L 04/07/20 17:30 Monocytes % (Manual) 3 % (0-9) 04/07/20 17:30 Neutrophils # (Manual) 14.1 K/mm3 (1.3-6.0) H 04/07/20 17:30 Lymphocytes # (Manual) 0.5 k/mm3 (1.5-3.5) L 04/07/20 17:30 Monocytes # (Manual) 0.5 k/mm3 (0.0-1.0) 04/07/20 17:30 Nucleated RBCs 1.0 % (0-1) 04/07/20 17:30 Hypersegmented Polys Trace 04/07/20 17:30 Platelet Estimate Normal (NORMAL) 04/07/20 17:30 Anisocytosis 2+ 04/07/20 17:30 PT 10.8 Seconds (9.1-10.7) H 04/07/20 17:30 INR (Anticoag Therapy) 1.09 INR (0.92-1.08) H 04/07/20 17:30 PTT ([place]) 24.7 Seconds (24-32) 04/07/20 17:30 D-Dimer 1.81 ug/mL (0.19-0.49) H 04/07/20 17:30 pCO2 31.4 mmHg (32.0-45.0) L 04/07/20 21:20 pO2 85.7 mmHg (83.0-108.0) 04/07/20 21:20 HCO3 22.9 mmol/L (21.0-28.0) 04/07/20 21:20 Total CO2 23.8 mmol/L (19.0-24.0) 04/07/20 21:20 Base Excess 0.0 mmol/L (-2.0-3.0) 04/07/20 21:20 ABG pH 7.48 (7.35-7.45) H 04/07/20 21:20 ABG O2 Sat (Measured) 97.2 % (94.0-98.0) 04/07/20 21:20 Sodium 132 mmol/L (132-142) 04/07/20 17:30 Plasma Sodium 133 mmol/L (130-142) 04/07/20 17:30 Potassium 4.3 mmol/L (3.4-4.6) 04/07/20 17:30 Chloride 98 mmol/L (97-106) 04/07/20 17:30 Carbon Dioxide 26.0 mmol/L (24-32.6) 04/07/20 17:30 Anion Gap 12.3 mmol/L (6.8-13.8) 04/07/20 17:30 BUN 24 mg/dL (3-23) H D 04/07/20 17:30 Creatinine 1.16 mg/dL (0.4-1.4) 04/07/20 17:30 Est GFR (Non-Af Amer) 48 mL/min (60-130) L D 04/07/20 17:30 BUN/Creatinine Ratio 20.7 (9.0-21.6) 04/07/20 17:30 Random Glucose 173 mg/dL (70-110) H 04/07/20 17:30 Lactic Acid, Venous 1.9 mmol/L (0.4-2.0) 04/07/20 20:35 Calcium 9.0 mg/dL (7.9-10.9) 04/07/20 17:30 Calcium Adj for Albumin 9.9 mg/dL (8.4-10.2) 04/07/20 17:30 Total Bilirubin 0.4 mg/dL (0.0-1.1) 04/07/20 17:30 AST 52 U/L (0-48) H 04/07/20 17:30 ALT 44 U/L (19-67) 04/07/20 17:30 Alkaline Phosphatase 198 U/L (50-170) H 04/07/20 17:30 Troponin I Less than 0.017 ng/mL (0.00-0.10) 04/07/20 17:30 B-Natriuretic Peptide 1796 pg/mL (5-550) H 04/07/20 17:30 Total Protein 7.1 gm/dL (6.2-8.2) 04/07/20 17:30 Albumin 2.5 gm/dl (3.4-5.0) L 04/07/20 17:30 Procalcitonin 0.56 ng/mL (0.05-0.50) H 04/07/20 17:30 Urine Color Yellow 04/07/20 20:30 Urine Appearance Cloudy (CLEAR) 04/07/20 20:30 Urine pH 5.5 pH (5.0-7.0) 04/07/20 20:30 Ur Specific [place] 1.020 SP.GR. (1.005-1.010) 04/07/20 20:30 Urine Protein >=300 mg/dL (NEGATIVE) H 04/07/20 20:30 Urine Glucose (UA) Negative mg/dL (NEGATIVE) 04/07/20 20: Urine Ketones Negative mg/dL (NEGATIVE) 04/07/20 20:30 Urine Blood 250 /ul (NEGATIVE) H 04/07/20 20:30 Urine Nitrate Negative (NEGATIVE) 04/07/20 20:30 Urine Bilirubin Negative mg/dl (NEGATIVE) 04/07/20 20:30 Prot Sulfosalicylic Acd 4+ mg/dL (0) H 04/07/20 20:30 Urine Urobilinogen Normal EU/dl (NORMAL) 04/07/20 20:30 Ur Leukocyte Esterase 75 /ul (NEGATIVE) H 04/07/20 20:30 Urine RBC 5-10 /hpf (0-5) H 04/07/20 20:30 Urine WBC 5-10 /hpf (0-5) H 04/07/20 20:30 Ur Epithelial Cells 0-5 /hpf (0-5) 04/07/20 20:30 Urine Bacteria 4+ (NONE) H 04/07/20 20:30 Urine Yeast Trace (NONE) 04/07/20 20:30 Urine Culture Comments Culture to follow 04/07/20 20:30 Assessment/Plan - Narrative Narrative: 1. Restart steroids 2. Restart enoxaparin 3. I will discuss end-of-life measures and comfort measures with her tomorrow make sure she understands what that means. 4. Oxygen is needed. - Assessment/Plan (1) COVID-19 virus infection Problem: Acute (2) Pneumonia due to COVID-19 virus Problem: Acute (3) Chronic pain Problem: Chronic Qualifiers: Chronic pain type: chronic pain syndrome
[2020-04-08] MEDS ORDERED: ACETAMINOPHEN 500 MG TABLET PO PRN (19:33)
[2020-04-08] MEDS ORDERED: guaiFENesin 100 MG/5 ML SYRUP PO PRN (19:34)
[2020-04-08] MEDS ORDERED: ALBUTEROL SULFATE 200 PUFF INHALER IH PRN (19:34)
[2020-04-08] MEDS: ENOXAPARIN SODIUM 40 MG/0.4 ML SYRG SC SCH (21:50)
[2020-04-08] MEDS: PANTOPRAZOLE SODIUM 20 MG TABLET.DR PO SCH (21:50)
[2020-04-08] MEDS: DEXAMETHASONE 2 MG TABLET PO SCH (21:51)
[2020-04-08] MEDS: QUEtiapine FUMARATE 100 MG TABLET PO SCH (21:52)
[2020-04-08] MEDS: INSULIN GLARGINE,HUM.REC.ANLOG 100 UNITS/ML VIAL SC SCH (21:52)
[2020-04-08] MEDS: FOLIC ACID 1 MG TABLET PO SCH (21:52)
[2020-04-08] MEDS: traMADol HCL 50 MG TABLET PO SCH (21:52)
[2020-04-09] MEDS ORDERED: LEVOTHYROXINE SODIUM 75 MCG TABLET PO SCH (07:00)
[2020-04-09] MEDS: traMADol HCL 50 MG TABLET PO SCH ×3 (08:53→21:29)
[2020-04-09] MEDS: FOLIC ACID 1 MG TABLET PO SCH (08:54)
[2020-04-09] MEDS: DEXAMETHASONE 2 MG TABLET PO SCH (08:54)
[2020-04-09] MEDS: PANTOPRAZOLE SODIUM 20 MG TABLET.DR PO SCH (08:54)
[2020-04-09] MEDS ORDERED: amLODIPine BESYLATE 10 MG TABLET PO SCH (09:00)
[2020-04-09] MEDS ORDERED: SERTRALINE HCL 50 MG TABLET PO SCH (09:00)
[2020-04-09] MEDS ORDERED: ZINC OXIDE/COD LIVER OIL 113 APPL TUBE TP PRN (13:29)
[2020-04-09] MEDS ORDERED: ONDANSETRON HCL/PF 2 MG/ML VIAL IV PRN (17:00)
[2020-04-09] MEDS ORDERED: ATROPINE SULFATE 50 DROP BTL SL PRN (17:00)
[2020-04-09] MEDS ORDERED: CODEINE PHOSPHATE/GUAIFENESIN 5 ML UDC PO PRN (17:00)
[2020-04-09] MEDS ORDERED: HYDROmorphone HCL 2 MG/ML VIAL IV PRN (17:00)
[2020-04-09] MEDS ORDERED: ACETAMINOPHEN 325 MG TABLET PO PRN (17:05)
--- NOTE | 2020-04-09 17:30 | PN ---
Subjective - Date and Time Seen Date: 04/09/20 Time: 12:30 Subjective Narrative: She says she rested better last night. She just feels very weak and tired. I had a long discussion with her about comfort care measures and what that meant. In terms of medicines she wanted to keep her pain medication and her sleeping medicine. She also wants to keep her anxiety medicine and continue with the steroids as they help her back and help her breathe better. She remains on 10 L nasal cannula O2 for an O2 saturation of 93%. Her temperature is 36.7 degrees, pulse 72, BP 145/61, respiratory rate is 18. She is 93% on the 10 L flow O2. Objective - Review of Systems Generalized/Overall Review: Reports: Weakness, Malaise, Fatigue EENTM: Reports: No Symptoms Reported Respiratory: Reports: Cough, Shortness of Breath Cardiac: Reports: No Symptoms Reported Abdominal: Reports: No Symptoms Reported Genitourinary Symptoms: Reports: No Symptoms Reported Musculoskeletal Complaints: Reports: Back Pain - Chronic low back pain, Other Neurological: Reports: Weakness Skin: Reports: No Symptoms Reported Endocrine: Reports: No Symptoms Reported - Vitals Vitals: Last Vital Signs Temp 36.7 C 04/09/20 13:47 Pulse 66 04/09/20 14:10 Resp 18 04/09/20 13:47 BP 145/61 04/09/20 13:47 Pulse Ox 93 04/09/20 13:47 - Exam Constitutional: Present: Alert, Oriented x3, Cooperative, Well developed, Well nourished, No distress ENT Exam: Present: normal ENT inspection, pharynx normal, hard of hearing Neck: Present: non-tender, full range of motion, supple, normal inspection Breasts: Present: Exam deferred Respiratory: Present: chest non-tender, crackles Cardiovascular/Chest: Present: normal peripheral pulses, regular rate, rhythm, no chest tenderness, no edema, no gallop, no JVD, no murmur, no rub Abdomen: Present: Normal bowel sounds, soft, nontender, nondistended /Rectal: Present: Exam deferred Extremity: Present: normal range of motion, no pedal edema Skin Exam: Present: other - She is called and the pelvic, perineal,. And albert- anal areas.. Changing to [place] today. 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 Thoughts: Present: normal thought pattern, no apparent hallucination Assessment/Plan Plan Narrative: 1. Modified comfort measures. Orders placed. 2. She is a DNR. 3. No more lab orders. 4. She does have a urinary tract infection. I will discuss that with her tomorrow to see if she wishes to treat that or not. The final on the culture will have 3 organisms growing out but they are not yet identified. - Problems/Diagnosis (1) COVID-19 virus infection Problem: Acute (2) Pneumonia due to COVID-19 virus Problem: Acute (3) Chronic pain Problem: Chronic Qualifiers: Chronic pain type: chronic pain syndrome
[2020-04-09] MEDS: INSULIN GLARGINE,HUM.REC.ANLOG 100 UNITS/ML VIAL SC SCH (21:28)
[2020-04-09] MEDS: MELATONIN 3,000 MCG TABLET PO SCH (21:29)
[2020-04-09] MEDS: ENOXAPARIN SODIUM 40 MG/0.4 ML SYRG SC SCH (21:29)
[2020-04-09] MEDS: SENNOSIDES/DOCUSATE SODIUM 1 TAB TABLET PO SCH (21:29)
[2020-04-09] MEDS: LORazepam 0.5 MG TABLET PO PRN (21:30)
[2020-04-09] MEDS: QUEtiapine FUMARATE 100 MG TABLET PO SCH (21:30)
[2020-04-10] MEDS: traMADol HCL 50 MG TABLET PO SCH ×3 (08:16→20:23)
[2020-04-10] MEDS: DEXAMETHASONE 2 MG TABLET PO SCH (08:17)
[2020-04-10] MEDS: FOLIC ACID 1 MG TABLET PO SCH (08:18)
--- NOTE | 2020-04-10 14:20 | PN ---
Subjective - Date and Time Seen Date: 04/10/20 Time: 14:12 Subjective Narrative: Shaina appears to be better some better today. She is more alert and quicker in her responses. She has eaten a couple of meals today. She says she feels a little stronger today. I discussed with her the finding of her urinary tract infections. She has 3 bacteria growing out over 100,000 colonies each. The only drug that covers all 3 is Macrodantin. 2 are sensitive and one is inter mediately sensitive to it. I asked her if she wanted me to treat her urinary tract infection given her comfort measures status and she said she wanted to treated. Otherwise there are no new issues that have arisen. She is now 11 days post Covid diagnosis. Objective - Review of Systems Generalized/Overall Review: Reports: Weakness, Malaise, Fatigue EENTM: Reports: No Symptoms Reported Respiratory: Reports: Cough, Shortness of Breath Cardiac: Reports: No Symptoms Reported Abdominal: Reports: No Symptoms Reported Genitourinary Symptoms: Reports: No Symptoms Reported Musculoskeletal Complaints: Reports: Back Pain Neurological: Reports: No Symptoms Reported Skin: Reports: No Symptoms Reported Endocrine: Reports: No Symptoms Reported - Vitals Vitals: Last Vital Signs Temp 36.5 C 04/10/20 06:00 Pulse 74 04/10/20 06:00 Resp 16 04/10/20 06:00 BP 130/57 04/10/20 06:00 Pulse Ox 92 L 04/10/20 06:00 - Exam Constitutional: Present: Alert, Oriented x3, Cooperative, Well developed, Well nourished, No distress ENT Exam: Present: normal ENT inspection, pharynx normal, TMs normal, hard of hearing Neck: Present: non-tender Breasts: Present: Exam deferred Respiratory: Present: chest non-tender, lungs clear, normal breath sounds, no respiratory distress, no accessory muscle use Cardiovascular/Chest: Present: normal peripheral pulses, regular rate, rhythm, no chest tenderness, no edema, no gallop, no JVD, no murmur, no rub Abdomen: Present: Normal bowel sounds, soft, nontender, nondistended, no rebound tenderness, no hepatospenomegaly, no masses /Rectal: Present: Exam deferred Extremity: Present: normal range of motion, non-tender, normal inspection, no pedal edema, no calf tenderness, normal capillary refill Skin Exam: Present: warm/dry, no cyanosis, pallor Neurologic: Present: 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 Start Macrobid 100 mg p.o. twice daily for 10 days 2. Case management is working on fpc placement for her. I will wait to reCovid test her until we find one that would consider it. 3. Continue steroids and insulin and other meds as already ordered. Otherwise, no changes in therapy today. - Problems/Diagnosis (1) COVID-19 virus infection Problem: Acute (2) Pneumonia due to COVID-19 virus Problem: Acute (3) Chronic pain Problem: Chronic Qualifiers: Chronic pain type: chronic pain syndrome (4) UTI (urinary tract infection), bacterial Problem: Acute
[2020-04-10] MEDS ORDERED: DEXAMETHASONE 6 MG PO SCH (17:15)
[2020-04-10] MEDS: QUEtiapine FUMARATE 100 MG TABLET PO SCH (20:22)
[2020-04-10] MEDS: INSULIN GLARGINE,HUM.REC.ANLOG 100 UNITS/ML VIAL SC SCH (20:25)
[2020-04-10] MEDS: ENOXAPARIN SODIUM 40 MG/0.4 ML SYRG SC SCH (20:26)
[2020-04-10] MEDS: SENNOSIDES/DOCUSATE SODIUM 1 TAB TABLET PO SCH (20:27)
[2020-04-10] MEDS: MELATONIN 3,000 MCG TABLET PO SCH (20:27)
[2020-04-10] MEDS: NITROFURANTOIN/NITROFURAN MAC 100 MG CAPSULE PO SCH (20:27)
[2020-04-10] MEDS: LORazepam 0.5 MG TABLET PO PRN (20:39)
[2020-04-11] MEDS ORDERED: ALBUTEROL SULFATE/IPRATROPIUM 3 ML NEBU IH ONE ×2 (05:18→05:19)
[2020-04-11] MEDS: traMADol HCL 50 MG TABLET PO SCH ×3 (07:54→20:15)
[2020-04-11] MEDS: NITROFURANTOIN/NITROFURAN MAC 100 MG CAPSULE PO SCH ×2 (08:48→20:27)
[2020-04-11] MEDS: DEXAMETHASONE 2 MG TABLET PO SCH (08:48)
[2020-04-11] MEDS: FOLIC ACID 1 MG TABLET PO SCH (09:31)
[2020-04-11] MEDS ORDERED: ALBUTEROL SULFATE/IPRATROPIUM 3 ML NEBU IH PRN (14:29)
--- NOTE | 2020-04-11 14:40 | PN ---
Subjective - Date and Time Seen Date: 04/11/20 Time: 12:30 Subjective Narrative: Shaina had a good day yesterday and a good night until early this morning when she developed hypoxia again. She was put on a nonrebreather mask at 15 L to get her oxygen saturations back up in the 90s and since then has been tapered back down to 10. She is not feeling as good today as yesterday but she is better than she was 2 days ago still. She has no other complaints or requests. She did not eat a good lunch. Yesterday she did eat well. Vital signs are not being done except for respiratory rate. Lab is not being done due to comfort measures in place. Overall, I think she is slowly improving. Objective - Review of Systems Generalized/Overall Review: Reports: Weakness, Malaise, Fatigue EENTM: Reports: No Symptoms Reported Respiratory: Reports: Cough, Shortness of Breath Cardiac: Reports: No Symptoms Reported Abdominal: Reports: No Symptoms Reported Genitourinary Symptoms: Reports: No Symptoms Reported Musculoskeletal Complaints: Reports: No Symptoms Reported Skin: Reports: No Symptoms Reported Endocrine: Reports: No Symptoms Reported - Vitals Vitals: Last Vital Signs Temp 36.5 C 04/10/20 06:00 Pulse 61 04/11/20 05:33 Resp 20 04/11/20 05:33 BP 130/57 04/10/20 06:00 Pulse Ox 94 04/11/20 11:48 - Exam Constitutional: Present: Alert, Oriented x3, Cooperative, Well developed, Well nourished, Mild distress ENT Exam: Present: normal ENT inspection, pharynx normal, hard of hearing Neck: Present: non-tender, full range of motion, supple Breasts: Present: Exam deferred Respiratory: Present: chest non-tender, lungs clear, normal breath sounds, respiratory distress, other - DuoNeb [place]. Given this morning. Helpful per patient. 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 Continue current therapy 2. Add DuoNeb treatments every 4 hours as needed for dyspnea 3. Continue general comfort measures 4. Continue attempts to wean down oxygen FiO2 - Problems/Diagnosis (1) COVID-19 virus infection Problem: Acute (2) Pneumonia due to COVID-19 virus Problem: Acute (3) Chronic pain Problem: Chronic Qualifiers: Chronic pain type: chronic pain syndrome (4) UTI (urinary tract infection), bacterial Problem: Acute
[2020-04-11] MEDS: ENOXAPARIN SODIUM 40 MG/0.4 ML SYRG SC SCH (20:26)
[2020-04-11] MEDS: INSULIN GLARGINE,HUM.REC.ANLOG 100 UNITS/ML VIAL SC SCH (20:27)
[2020-04-11] MEDS: QUEtiapine FUMARATE 100 MG TABLET PO SCH (20:28)
[2020-04-11] MEDS: SENNOSIDES/DOCUSATE SODIUM 1 TAB TABLET PO SCH (20:28)
[2020-04-11] MEDS: MELATONIN 3,000 MCG TABLET PO SCH (20:28)
[2020-04-11] MEDS: LORazepam 0.5 MG TABLET PO PRN (20:28)
[2020-04-12] MEDS: LORazepam 2 MG/ML DISP.SYRIN IV PRN ×2 (08:06→19:26)
[2020-04-12] MEDS: traMADol HCL 50 MG TABLET PO SCH ×3 (08:06→20:40)
[2020-04-12] MEDS: NITROFURANTOIN/NITROFURAN MAC 100 MG CAPSULE PO SCH ×2 (09:08→20:40)
[2020-04-12] MEDS: FOLIC ACID 1 MG TABLET PO SCH (09:09)
[2020-04-12] MEDS: DEXAMETHASONE 2 MG TABLET PO SCH (09:09)
--- NOTE | 2020-04-12 19:23 | PN ---
Subjective - Date and Time Seen Date: 04/12/20 Time: 18:45 Subjective Narrative: Shaina had a decent day today. She did drop her oxygen some earlier this evening but it is back up in the 95 to 98% range while I am examining her. She is on 10 L nasal cannula O2 and is not laboring to breathe. She has had no fever. Respiratory rate is about 24 breaths/min this evening. Her other vitals are not being checked due to comfort measures. She only ate a small amount of food this evening. Objective - Review of Systems Generalized/Overall Review: Reports: Weakness, Malaise, Fatigue EENTM: Reports: No Symptoms Reported Respiratory: Reports: Cough, Shortness of Breath Cardiac: Reports: No Symptoms Reported Abdominal: Reports: No Symptoms Reported Genitourinary Symptoms: Reports: No Symptoms Reported Musculoskeletal Complaints: Reports: No Symptoms Reported Neurological: Reports: Depressed, Weakness Skin: Reports: No Symptoms Reported Endocrine: Reports: No Symptoms Reported - Vitals Vitals: Last Vital Signs Temp 36.6 C 04/12/20 07:11 Pulse 86 04/12/20 07:11 Resp 20 04/12/20 07:11 BP 152/62 H 04/12/20 07:11 Pulse Ox 89 L 04/12/20 17:30 - Exam Constitutional: Present: Alert, Oriented x3, Cooperative, Well developed, Well nourished, Mild distress ENT Exam: Present: normal ENT inspection Neck: Present: non-tender, full range of motion, supple, normal inspection Breasts: Present: Exam deferred, Nontender Respiratory: Present: chest non-tender, rhonchi Cardiovascular/Chest: Present: normal peripheral pulses, regular rate, rhythm, no chest tenderness, no edema, no gallop, no murmur, no rub Abdomen: Present: Normal bowel sounds, soft, nontender, nondistended, no rebound tenderness, no hepatospenomegaly, no masses /Rectal: Present: Exam deferred Extremity: Present: normal range of motion, non-tender, normal inspection, no pedal edema, no calf tenderness, normal capillary refill Skin Exam: Present: normal color, warm/dry, no cyanosis Lymphatic: Present: no adenopathy 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 Continue with steroids and insulin. Continue to attempt FiO2 reduction. - Problems/Diagnosis (1) Acute respiratory failure with hypoxia Problem: Acute (2) COVID-19 virus infection Problem: Acute (3) Pneumonia due to COVID-19 virus Problem: Acute (4) Chronic pain Problem: Chronic Qualifiers: Chronic pain type: chronic pain syndrome (5) UTI (urinary tract infection), bacterial Problem: Acute
[2020-04-12] MEDS: ENOXAPARIN SODIUM 40 MG/0.4 ML SYRG SC SCH (20:39)
[2020-04-12] MEDS: INSULIN GLARGINE,HUM.REC.ANLOG 100 UNITS/ML VIAL SC SCH (20:39)
[2020-04-12] MEDS: QUEtiapine FUMARATE 100 MG TABLET PO SCH (20:39)
[2020-04-12] MEDS: SENNOSIDES/DOCUSATE SODIUM 1 TAB TABLET PO SCH (20:40)
[2020-04-12] MEDS: MELATONIN 3,000 MCG TABLET PO SCH (20:40)
[2020-04-13] MEDS: LORazepam 2 MG/ML DISP.SYRIN IV PRN (05:27)
[2020-04-13] MEDS: traMADol HCL 50 MG TABLET PO SCH ×3 (07:42→20:36)
[2020-04-13] MEDS: DEXAMETHASONE 2 MG TABLET PO SCH (08:38)
[2020-04-13] MEDS: NITROFURANTOIN/NITROFURAN MAC 100 MG CAPSULE PO SCH ×2 (08:38→20:36)
[2020-04-13] MEDS: FOLIC ACID 1 MG TABLET PO SCH (08:38)
[2020-04-13] MEDS ORDERED: HYDROmorphone HCL 2 MG TABLET PO ONE (10:40)
--- NOTE | 2020-04-13 10:51 | PN ---
Subjective - Date and Time Seen Date: 04/13/20 Time: 09:30 Subjective Narrative: Shaina's breathing seems to have worsened again through the night and she is back up to 15 L nonrebreather mask this morning. She is satting about 91%. She did drop to 79% when she sat up on the edge of the bed this morning. She seems weaker today. Her respiratory rate is 16 breaths/min. No other vital signs are done as she is on modified comfort measures. She has no other concerns or requests except that she is having a lot of pain. She has chronic back pain for which she usually takes Dilaudid. She lost her IV site this morning and I have asked him not to restart it. She can take her medicines orally. Objective - Review of Systems Generalized/Overall Review: Reports: Weakness, Malaise. Denies: Fever Respiratory: Reports: Cough, Shortness of Breath Cardiac: Reports: No Symptoms Reported Abdominal: Reports: No Symptoms Reported Genitourinary Symptoms: Reports: No Symptoms Reported Musculoskeletal Complaints: Reports: No Symptoms Reported Neurological: Reports: No Symptoms Reported Skin: Reports: No Symptoms Reported Endocrine: Reports: No Symptoms Reported - Vitals Vitals: Last Vital Signs Temp 36.6 C 04/13/20 07:13 Pulse 70 04/13/20 07:13 Resp 16 04/13/20 07:13 BP 152/54 H 04/13/20 07:13 Pulse Ox 91 L 04/13/20 07:13 - Exam Constitutional: Present: Alert, Oriented x3, Cooperative, Well developed, Well nourished, Elderly, Thin and frail ENT Exam: Present: normal ENT inspection, hearing grossly normal, pharynx normal, TMs normal Neck: Present: non-tender, supple, normal inspection, limited range of motion Respiratory: Present: crackles, wheezing Cardiovascular/Chest: Present: normal peripheral pulses, regular rate, rhythm, no chest tenderness, no edema, no gallop, no JVD, no murmur, no rub Abdomen: Present: Normal bowel sounds, soft, nontender, nondistended, no rebound tenderness, no hepatospenomegaly, no masses /Rectal: Present: Exam deferred Extremity: Present: normal range of motion, non-tender, normal inspection, no pedal edema, no calf tenderness, normal capillary refill Skin Exam: Present: pallor Lymphatic: Present: no adenopathy 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 I will give her a breathing treatment this morning. Do not restart the IV. Change Dilaudid and lorazepam to p.o. Please see orders. Continue oxygen titration as required to keep O2 sats above 90%. - Problems/Diagnosis (1) Acute respiratory failure with hypoxia Problem: Acute (2) COVID-19 virus infection Problem: Acute (3) Pneumonia due to COVID-19 virus Problem: Acute (4) Chronic pain Problem: Chronic Qualifiers: Chronic pain type: chronic pain syndrome (5) UTI (urinary tract infection), bacterial Problem: Acute
[2020-04-13] MEDS: LORazepam 0.5 MG TABLET PO PRN (15:46)
[2020-04-13] MEDS: INSULIN GLARGINE,HUM.REC.ANLOG 100 UNITS/ML VIAL SC SCH (20:35)
[2020-04-13] MEDS: QUEtiapine FUMARATE 100 MG TABLET PO SCH (20:36)
[2020-04-13] MEDS: MELATONIN 3,000 MCG TABLET PO SCH (20:36)
[2020-04-13] MEDS: SENNOSIDES/DOCUSATE SODIUM 1 TAB TABLET PO SCH (20:36)
[2020-04-13] MEDS: ENOXAPARIN SODIUM 40 MG/0.4 ML SYRG SC SCH (20:37)
[2020-04-14] MEDS: LORazepam 0.5 MG TABLET PO PRN ×2 (05:21→11:35)
[2020-04-14] MEDS: FOLIC ACID 1 MG TABLET PO SCH (08:01)
[2020-04-14] MEDS: NITROFURANTOIN/NITROFURAN MAC 100 MG CAPSULE PO SCH (08:01)
[2020-04-14] MEDS: traMADol HCL 50 MG TABLET PO SCH (08:02)
[2020-04-14] MEDS: DEXAMETHASONE 2 MG TABLET PO SCH (08:02)
[2020-04-14] MEDS ORDERED: MORPHINE SULFATE 10 MG/0.5 ML SYRINGE PO ONE ×2 (10:59→11:40)
--- NOTE | 2020-04-14 12:02 | DS ---
(1) Acute respiratory failure with hypoxia Problem: Acute (2) COVID-19 virus infection Problem: Acute (3) Pneumonia due to COVID-19 virus Problem: Acute (4) Chronic pain Problem: Chronic Qualifiers: Chronic pain type: chronic pain syndrome Qualified Code(s): G89.4 - Chronic pain syndrome (5) UTI (urinary tract infection), bacterial Problem: Acute Date of Discharge:: 04/14/20 Hospital Course: This patient is a 84 year old female who presents via [facility] with shortness of breath which has been present present since noted this afternoon by family. There are associated symptoms of fatigue and intermittent altered mentation. The patient denies pain. There are no alleviating factors. There are aggravating factors of activity. Previous treatments have included: Prednisone, Lovenox and Azithromycin. The past medical history includes: asthma, COPD, DM, HLD, hypothyroid, CVA, CHF and GERD. The social history is positive for former smoker. The patient has had no known ill contacts. Patient was recently discharged from inpatient stay associated with COVID +, COVID pneumonia, CHF, DM and acute renal insufficiency. Patient was discharged home on 03/31/20 and then had telehealth follow up in which she reported continued improvement to condition. This evening family checked on patient and found her to have increased work of breathing and felt her to be confused. Patient upon arrival via EMS on 15L/NRB, patient upon arrival was 74% RA by EMS. Patient attempted to be moved to nasal cannula and unable to maintain SpO2 >85%, switched to ventimask with SpO2 85%. Unable to keep SpO2 >90% on ventimask, changes to NRB 15L/NC. Plan to switch to high flow oxygen and will continue to monitor. Patient received full 10 day dosing for dexamethasone and azithromycin then switched to oral prednisone. Patient was initially given Lovenox SQ associated with elevated D-Dimer but I do not see that it was continued. Patient upon arrival having difficulty communicating associated with dry mouth and dried secretions holding lips to teeth and poor forming of words with dry tongue. This readmission is probably reexacerbation of the inflammatory phase of this COVID-19 virus but it is not proven. IV steroids was restarted. Anticoagulati on also. Since admission her course has been up and down. She has had a couple of days when she was much more alert and conversant and was feeling better and then only to be followed by increased problems with breathing poor appetite and increased weakness. She has not really made any progress the past 3 days. In fact yesterday I thought she was probably a little worse. Nursing has revisited the discussion of comfort care measures and that is what she wishes to do. Therefore, she will be going to [facility] with [facility] hospice comfort measures. Procedures Performed: none Care Plan Goals: Comfort measures at [facility] with [facility] hospice Results and Findings: Lab Pending Results 04/07/20 17:30: WBC 15.0 H, RBC 4.19 L, Hgb 11.8 L, Hct 37.9, MCV 90.5, MCH 28.2, MCHC 31.1 L, RDW 17.3 H, Plt Count 385, MPV 9.9, Neutrophils % (Manual) 94 H, Lymphocytes % (Manual) 3 L, Monocytes % (Manual) 3, Neutrophils # (Manual) 14.1 H, Lymphocytes # (Manual) 0.5 L, Monocytes # (Manual) 0.5, Nucleated RBCs 1.0, Hypersegmented Polys Trace, Platelet Estimate Normal, Anisocytosis 2+ 04/07/20 17:30: PT 10.8 H, INR (Anticoag Therapy) 1.09 H, PTT (Randall) 24.7 04/07/20 17:30: Sodium 132, Plasma Sodium 133, Potassium 4.3, Chloride 98, Carbon Dioxide 26.0, Anion Gap 12.3, BUN 24 H D, Creatinine 1.16, Est GFR (Non- Af Amer) 48 L D, BUN/Creatinine Ratio 20.7, Random Glucose 173 H, Calcium 9.0, Calcium Adj for Albumin 9.9, Total Bilirubin 0.4, AST 52 H, ALT 44, Alkaline Phosphatase 198 H, Troponin I Less than 0.017, B-Natriuretic Peptide 1796 H, Total Protein 7.1, Albumin 2.5 L 04/07/20 17:30: Procalcitonin 0.56 H 04/07/20 17:30: Lactic Acid, Venous 2.5 H* 04/07/20 17:30: D-Dimer 1.81 H 04/07/20 17:55: pCO2 28.1 L, pO2 58.5 L, HCO3 21.9, Total CO2 22.8, Base Excess 0.0, ABG pH 7.51 H, ABG O2 Sat (Measured) 93.1 L 04/07/20 19:20: pCO2 29.8 L, pO2 51.5 L, HCO3 21.8, Total CO2 22.7, Base Excess -0.7, ABG pH 7.48 H, ABG O2 Sat (Measured) 89.5 L 04/07/20 20:30: Urine Color Yellow, Urine Appearance Cloudy, Urine pH 5.5, Ur Specific [place] 1.020, Urine Protein >=300 H, Urine Glucose (UA) Negative, Urine Ketones Negative, Urine Blood 250 H, Urine Nitrate Negative, Urine Bilirubin Negative, Prot Sulfosalicylic Acd 4+ H, Urine Urobilinogen Normal, Ur Leukocyte Esterase 75 H, Urine RBC 5-10 H, Urine WBC 5-10 H, Ur Epithelial Cells 0-5, Urine Bacteria 4+ H, Urine Yeast Trace, Urine Culture Comments Culture to follow 04/07/20 20:35: Lactic Acid, Venous 1.9 04/07/20 21:20: pCO2 31.4 L, pO2 85.7, HCO3 22.9, Total CO2 23.8, Base Excess 0.0, ABG pH 7.48 H, ABG O2 Sat (Measured) 97.2 Discharge Location: [facility] Disposition: Hospice Home Condition: Stable Face to Face Encounter completed per CMS Guidelines: No Level of Care: ICF Discharge Activity: Activity as tolerated Discharge Diet: Consistent carbs Referrals: Bryan Mccarty DO [Primary Care Provider] - Additional Patient Instructions (free text): To [facility] with [facility]osp[facility] to follow there. Please call and fax both places discharge information. Prescriptions (Any new or edited meds): Zinc Oxide/Cod Liver Oil [Desitin] 1 appl TP PRN PRN 30 Days #1 tube PRN Reason: Rash Transmission Status: Pending to [facility] Dorzolamide HCl/Timolol Maleat [Dorzolamide-Timolol Eye Drops] 1 drp RIGHTEYE BID #1 bottle Transmission Status: Pending to [facility] Albuterol Sulfate/Ipratropium [Duoneb 2.5-0.5MG/3ML Soln] 3 ml IH Q4H PRN #25 nebu PRN Reason: Dyspnea Transmission Status: Pending to [facility] Codeine Phosphate/Guaifenesin [Guiatuss AC Syrup] 10 ml PO Q4H PRN #120 ml PRN Reason: Cough Atropine Sulfate [Isopto Atropine 1%] 2 drp SL Q2H PRN #30 ml PRN Reason: secretions Transmission Status: Pending to [facility] Insulin Glargine,Hum.rec.anlog [Lantus Solostar] 24 unit SUBCUT HS #15 ml MDD 24 units Transmission Status: Pending to [facility] Lorazepam [Lorazepam Intensol] 2 mg SL Q3H PRN #30 oral.conc PRN Reason: Anxiety Transmission Status: Sent to [facility] Nitrofurantoin/Nitrofuran Mac [Macrobid] 100 mg PO Q12H #10 cap Transmission Status: Pending to [facility] Melatonin 5 mg PO HS #30 tab Transmission Status: Pending to [facility] Morphine Sulfate [Morphine Sulfate Conc. Oral Solution] 5 mg SL Q2H PRN #60 syringe PRN Reason: Pain Transmission Status: Sent to [facility] Sennosides/Docusate Sodium [Senokot-S] 2 tab PO HS #30 tab Transmission Status: Pending to [facility] QUEtiapine FUMARATE [Seroquel] 100 mg PO DAILY #14 Complete Home Medications List: Complete Home Medication List: Acetaminophen [Tylenol] 650 mg PO Q4H PRN tab 03/31/20 Albuterol Sulfate/Ipratropium [Duoneb 2.5-0.5MG/3ML Soln] 3 ml IH Q4H PRN #25 nebu 04/14/20 Atropine Sulfate [Isopto Atropine 1%] 2 drp SL Q2H PRN #30 ml 04/14/20 Codeine Phosphate/Guaifenesin [Guiatuss AC Syrup] 10 ml PO Q4H PRN #120 ml 04/14/20 Dorzolamide HCl/Timolol Maleat [Dorzolamide-Timolol Eye Drops] 1 drp RIGHTEYE BID #1 bottle 04/14/20 Insulin Glargine,Hum.rec.anlog [Lantus Solostar] 24 unit SUBCUT HS #15 ml MDD 24 units 04/14/20 Lorazepam [Lorazepam Intensol] 2 mg SL Q3H PRN #30 oral.conc 04/14/20 Melatonin 5 mg PO HS #30 tab 04/14/20 Morphine Sulfate [Morphine Sulfate Conc. Oral Solution] 5 mg SL Q2H PRN #60 syringe 04/14/20 Nitrofurantoin/Nitrofuran Mac [Macrobid] 100 mg PO Q12H #10 cap 04/14/20 QUEtiapine FUMARATE [Seroquel] 100 mg PO DAILY #14 04/14/20 Sennosides/Docusate Sodium [Senokot-S] 2 tab PO HS #30 tab 04/14/20 Zinc Oxide/Cod Liver Oil [Desitin] 1 appl TP PRN PRN 30 Days #1 tube 04/14/20 Forms: Patient Portal Registration
[2020-04-14 14:30] VITALS: BP 152/68
== END 2020-04-14 14:15 | disposition hospice, home (50) | DRG 177 ==
LOC: ER 16:57 → MS 20:40
PROVIDERS: ADMIT Family Medicine; ATTEND Family Medicine
DX: E78.5 Hyperlipidemia, unspecified; J12.89 Other viral pneumonia; Z86.73 Personal history of transient ischemic attack (TIA), and cerebral infarction without residual deficits; B96.20 Unspecified Escherichia coli [E. coli] as the cause of diseases classified elsewhere; Z16.24 Resistance to multiple antibiotics; J96.01 Acute respiratory failure with hypoxia; E11.9 Type 2 diabetes mellitus without complications; B96.1 Klebsiella pneumoniae [K. pneumoniae] as the cause of diseases classified elsewhere; I50.9 Heart failure, unspecified; F41.9 Anxiety disorder, unspecified; G89.4 Chronic pain syndrome; N39.0 Urinary tract infection, site not specified; U07.1 COVID-19; Z79.4 Long term (current) use of insulin; B95.2 Enterococcus as the cause of diseases classified elsewhere; E03.9 Hypothyroidism, unspecified; K21.9 Gastro-esophageal reflux disease without esophagitis; J44.9 Chronic obstructive pulmonary disease, unspecified; Z87.891 Personal history of nicotine dependence